=== PATIENT | female | born 1945 | race Caucasian/White ===

== ENCOUNTER 2023-11-22 14:00 | Outpatient (RCR) | payer MEDICARE, OTHER, SELFPAY ==
[2023-11-01 14:02] VITALS: BP 135/75; PULSE 67; RESP 18; TEMP 36.7; BMI 24.3
--- NOTE | 2023-11-01 22:13 | HP.PCM_ITS ---
History of Present Illness Date of Service: 11/01/23 Chief Complaint: Left pretibial ulceration with severe contact dermatitis History of Wound: This is a 77-year-old female who presented with an ulceration of the left pretibial surface which has been present for approximately 1 year. The ulceration has failed to heal. The patient was evaluated at [facility] on October 20, 2023, at which time supriya-ulcer erythema, thought to be cellulitis, prompted treatment with a course of oral antibiotics. Patient has completed a course of oral doxycycline. Most recently, at the advice of her primary care physician, the patient has been using Vaseline liberally on the ulceration and surrounding skin, and covering with Telfa. Patient is a smoker, and has been instructed as to the hazards of smoking, and advised to cease the habit. She currently smokes one-half a pack of cigarettes per day, and has done so for many years. The patient is of relatively normal body habitus, with a BMI of 24.3. She is active, and sleeps on a flat mattress at night. She does relate a history of mild left lower extremity swelling. She denies a history of thrombophlebitis. [facility] Medical History Left leg swelling Contact dermatitis Leg ulcer, left Prediabetes Osteoarthritis of knees, bilateral Psoriasis of scalp Hypertension Tobacco abuse counseling Tobacco abuse Hyperlipidemia Gastroesophageal reflux disease Home Medications ?Medication ?Instructions ?Recorded ?Last Taken ?Type atorvastatin 40 mg tablet 40 mg PO DAILY 11/01/23 Unknown History chlorthalidone 25 mg tablet 25 mg PO DAILY 11/01/23 Unknown History coenzyme Q10 100 mg capsule (Co 100 mg PO DAILY 11/01/23 Unknown History Q-10) folic acid 0.8 mg capsule 800 mcg PO DAILY 11/01/23 Unknown History metoprolol succinate 100 mg 100 mg PO DAILY 11/01/23 Unknown History tablet,extended release 24 hr metoprolol succinate 200 mg 200 mg PO DAILY 11/01/23 Unknown History tablet,extended release 24 hr omeprazole 10 mg capsule,delayed 10 mg PO DAILY 11/01/23 Unknown History release Allergy/AdvReac Type Severity Reaction Status Date / Time amlodipine Allergy Rash Verified 11/01/23 16:02 hydrochlorothiazide Allergy Other Verified 11/01/23 16:02 olmesartan Allergy Other Verified 11/01/23 16:02 simvastatin Allergy Other Verified 11/01/23 16:02 Sulfa (Sulfonamide Allergy Other Verified 11/01/23 16:02 Antibiotics) Surgical History History of tonsillectomy Social History Smoking Status: Current every day smoker Vital Signs Vital Signs Vital Signs: 11/01/23 14:02 Temperature 98.1 F Temperature Source Temporal Pulse Rate 67 Respiratory Rate 18 Blood Pressure 135/75 H Blood Pressure Mean 95 Blood Pressure Source Monitor Blood Pressure Position Semi-Fowlers Blood Pressure Location Left Arm Oxygen Delivery Method Room Air Weight Weight: 142 lb Body Mass Index (BMI) 24.3 Physical Exam Const alert, oriented x3, no apparent distress, average body habitus, no limitations and well nourished General Appearance: cooperative, comfortable, well kempt and well developed Orientation / Consciousness: awake, oriented to person, oriented to place and oriented to time HEENT normocephalic and head/scalp atraumatic Head and Scalp: normal to inspection, normocephalic and atraumatic External Ear: external ears normal Eyes EOMs intact bilaterally General Eye: normal appearance of both eyes Neck full ROM Resp normal respiratory effort, normal air movement, no retractions, no use of accessory muscles and clear to auscultation bilaterally Effort and Inspection: able to speak in complete sentences Cardio regular rate, regular rhythm, S1 normal heart sound and S2 normal heart sound Extremity no calf tenderness General Extremity: Negative for clubbing or cyanosis Skin Wound Narrative: An ulceration is noted on the left pretibial surface. It extends down into the subcutaneous tissue. There is a large amount of bioburden and nonviable tissue, which is yellow in appearance. Dimensions of the ulceration are documented elsewhere. A large portion of the left gaiter area is bright red and erythematous in appearance, though the skin is intact. The erythema is sharply demarcated superiorly and inferiorly in linear fashion to suggest that it is a contact dermatitis rather than cellulitic in nature. There is also a dry eschar on the dorsal aspect of the patient's right second toe. This has been present for only a short number of days, and is without signs of infection or cellulitis. Patient indicates that this was caused by her dog, who stepped on her foot. Neuro oriented x3, CN's II-XII intact bilaterally, moves all extremities and no focal motor deficits Sensorium / Orientation: awake, alert, oriented to person, oriented to place and oriented to time Psych Appearance: grossly normal and appropriate Attitude: calm Activity / Motor Behavior: appropriate eye contact Speech: normal speech Mood & Affect: euthymic mood Thought Process: normal thought process Thought Content: normal thought content Attention / Concentration: attention grossly intact Debridement Note Debridement Note Wound debrided: Left pretibial ulceration Laterality: Left Type of Debridement: Excisional debridement Anesthesia Used: 5% Lidocaine Gel Depth: Down to and including healthy tissue and in the subcutaneous layer Percentage of wound debrided: 100 Instrument Used: 5mm curette Tissue Removed: Bioburden and nonviable tissue Severity: Fat Layer Exposed Amount of bleeding with debridement: Mild Bleeding Controlled with: Compression and gauze Patient tolerated procedure: Patient tolerated procedure well Post-Debridement Measurements and Additional Note: Post-Debridement Measurements/Treatment - Nurse 1 - General Ulcer Assessment Start: 11/01/23 14:02 Freq: Status: Active Protocol: RANJEET Activity Type Activity Date Activity User E-sign Co-sign Detail Recorded Client Recorded Date Recorded By Document 11/01/23 14:02 KW l 11/01/23 14:31 KW 11/01/23 14:02 - Today's Visit Information Type of service Initial Visit Arrival Mode Ambulatory,Cane Accompanied by FRIEND- HIMA Patient Identification Verified (Name & Yes ) Height and Weight Height 5 ft 4 in Weight 142 lb Weight in Pounds 142.0 lbs Body Mass Index (BMI) 24.3 BMI Classification Normal BSA - Phyllis 1.69 Vital Signs Temperature (97.8 F-99.1 F) 98.1 F Temperature Source Temporal Pulse Rate (60-100) 67 Pulse Location Monitor Respiratory Rate (12-18) 18 Respiratory rate source Observation Oxygen Delivery Method Room Air Blood Pressure (90/60-120/80) 135/75 H Blood Pressure Mean 95 Source Monitor Position Semi-Fowlers Blood Pressure Location Left Arm History Since Last Visit- (Skip if this is Patient's initial visit) Left Footwear Regular Shoe Right Footwear Regular Shoe Pain Scale: 0-10 Numeric Is Patient Pain Free? Yes Lower Extremity Assessment/ Foot Assessment/ Toe Nail Assessment Right -Posterior Tibial Doppler Monophasic -Dorsalis Pedis Doppler Monophasic -Hair Growth on Legs No -Hair Growth on Toes No -Temperature of Extremity Cool -Capillary Refill Less than 3 Seconds -Thick Yes -Discolored Yes -Deformed Yes Left -Posterior Tibial Doppler Monophasic -Dorsalis Pedis Doppler Multiphasic -Hair Growth on Legs No -Hair Growth on Toes No -Temperature of Extremity Cool -Capillary Refill Less than 3 Seconds -Thick Yes -Discolored Yes -Deformed Yes Communication Assessment Preferred language Nepali Manager Secondary Required No Able to Read Yes Able to Write Yes Communication Tools None Caregiver Communication Skills No Impairment Impairment Right Hearing Abillity Normal Left Hearing Abillity Normal Visual Assistive Devices None Teaching Assessment Preferences Verbal,Written, Demonstration Barriers to Learning None Readiness To Learn Excellent Willingness to Engage in Self Management High Activies Readiness to Engage in Self Management High Activities Anxiety Level Calm Cooperation Cooperative Perception Coherent Interest in Health Problem Asks Questions Education Importance Acknowledges Need Does Patient Smoke tobacco or other Yes substances Smoking Status Current every day smoker Is Patient Diabetic No Functional Assessment Recent Decline in Ability to Perform Denies Any Declines Culture/Judaism/Production Control Analyst Cultural/Judaism Needs that may affect No Treatment Plan Would you allow our hospital mirror department supervisor to No meet you for the purpose of spiritual/ emotional support? Production Control Analyst to contact place of gnosticism No WC - Nurse 1 - General Ulcer Measurement Start: 11/01/23 14:02 Freq: Status: Active Protocol: Activity Type Activity Date Activity User E-sign Co-sign Detail Recorded Client Recorded Date Recorded By Document 11/01/23 14:02 KW l 11/01/23 14:31 KW 11/01/23 14:02 Wound Center Nurse 1 #2 RT 2ND TOE -Current Size (cm) - Length 2 -Current Size (cm) - Width 0.8 -Current Size (cm) - Depth 0.1 -Total Square Cm 1.6 -Date of Last Picture (Recall this 11/01/23 field) -Exudate Amt None Present -Wound Margin Distinct, Outline Attached -Granulation Amt Small (1-33%) -Granulation Quality Red -Necrosis Amt Large (67-100%) -Necrotic Tissue Type Eschar -Texture (Supriya-wound Skin Appearance) Assessed -Moisture (Supriya-wound Skin Appearance) Assessed -Color (Supriya-wound Skin Appearance) Assessed, Erythema -Temperature (Supriya-wound Skin No Abnormality Appearance) (Pt Warm) -Tenderness on Palpation (Supriya-wound No Skin Appearance) -Ulcer Cleansing Soap and Water -Foul Odor after Cleansing No -Anesthetic Used 5% Lidocaine Gel #1 LLE CLUSTER -Current Size (cm) - Length 6 -Current Size (cm) - Width 9.5 -Current Size (cm) - Depth 0.3 -Total Square Cm 57.0 -Date of Last Picture (Recall this 11/01/23 field) -Exudate Amt Medium -Exudate Type Serosanguineous -Wound Margin Distinct, Outline Attached -Granulation Amt Medium (34-66%) -Granulation Quality Red -Necrosis Amt Large (67-100%) -Necrotic Tissue Type Adherent Slough -Texture (Supriya-wound Skin Appearance) Assessed -Moisture (Supriya-wound Skin Appearance) Assessed, Maceration -Color (Supriya-wound Skin Appearance) Erythema -Temperature (Supriya-wound Skin No Abnormality Appearance) (Pt Warm) -Tenderness on Palpation (Supriya-wound No Skin Appearance) -Ulcer Cleansing Soap and Water -Foul Odor after Cleansing No -Anesthetic Used 4% Lidocaine Solution Right Calf (cm) 32 Right Ankle (cm) 21 Left Calf (cm) 35 Left Ankle (cm) 21 WC - Nurse 2 - General Ulcer CM Notes Start: 11/01/23 14:02 Freq: Status: Active Protocol: Activity Type Activity Date Activity User E-sign Co-sign Detail Recorded Client Recorded Date Recorded By Document 11/01/23 14:53 JF 0000 11/01/23 14:58 JF 11/01/23 14:53 Wound Center Nurse 2 #2 RT 2ND TOE -Correct Patient No -Correct Side, Site, Position No -Correct Procedure No -Procedure Performed No -Wound/Ulcer Outcome Not Healed #1 LLE CLUSTER -Time 14:53 -Correct Patient Yes -Correct Side, Site, Position Yes -Correct Procedure Yes -Procedure Performed Yes -Type of Procedure Debridement -Clinical Debridement Subcutaneous -Tissue Removed Subcutaneous -Post Debridement (cm) - Length 5.7 -Post Debridement (cm) - Width 4.7 -Post Debridement (cm) - Depth 0.2 -Total Square (Post) (cm) 26.79 -Area of Debridement (cm) - Length 5.7 -Area of Debridement (cm) - Width 4.7 -Total Square (Area) (cm) 26.79 -Tunneling No -Undermining/Tunneling No -Circular Undermining No -Wound/Ulcer Outcome Not Healed -Ulcer Cleansing Rinsed/ Irrigated with Saline -Foul Odor after Cleansing No -Bioengineered Tissue No -Bleeding Controlled with Pressure -Treatment Response Procedure Tolerated Well -Offloading No -Debridement - Subq, 1st 20sq cm Yes -Debridement, SubQ, ea addt'l 20sq cm 1 or part thereof Pain Scale: 0-10 Numeric Is Patient Pain Free? Yes - Nurse 3 - General Ulcer D/C NN Start: 11/01/23 14:02 Freq: Status: Active Protocol: Activity Type Activity Date Activity User E-sign Co-sign Detail Recorded Client Recorded Date Recorded By Document 11/01/23 15:19 KW l 11/01/23 15:26 KW 11/01/23 15:19 Wound Care Center Nurse 3 #2 RT 2ND TOE -Ulcer Cleansing Rinsed/ Irrigated with Saline #1 LLE CLUSTER -Other Dressing HYDROGEL UNTIL SHE GETS SANTYL AND HYDROCORTISONE CREAM 1% -Primary Dressing Covered/Secured with Dry Gauze & Roll Gauze, Secured with Tape Left -Tubular Bandage Single Layer -Size of Tubigrip Used Size D -Size D ($) 1 Pain Scale: 0-10 Numeric Is Patient Pain Free? Yes - Visit Discharge Discharge Condition Stable Ambulatory Status Ambulatory,Cane Transportation Private Auto Medication Reconcilliation completed & No provided to patient/care provider Clinical Summary of Care Provided Yes Charges/Coding Multi Select Codes Visit Charges Office Visit/Consults: 46280 OV L4 New 45 min Integumentary Integumentary CPT Codes: 66280 Edith subq tissue 20 sq cm/< (Also 67366) Assessment/Plan Assessment/Plan (1) Leg ulcer, left: CODE(S): L97.929 - Non-pressure chronic ulcer of unspecified part of left lower leg with unspecified severity QUALIFIERS: Non-pressure ulcer stage: with fat layer exposed Qualified Code(s): L97.922 - Non-pressure chronic ulcer of unspecified part of left lower leg with fat layer exposed (2) Contact dermatitis: CODE(S): L25.9 - Unspecified contact dermatitis, unspecified cause QUALIFIERS: Contact dermatitis type: irritant Contact dermatitis trigger: other chemical product Qualified Code(s): L24.5 - Irritant contact dermatitis due to other chemical products (3) Left leg swelling: CODE(S): M79.89 - Other specified soft tissue disorders (4) Gastroesophageal reflux disease: CODE(S): K21.9 - Gastro-esophageal reflux disease without esophagitis (5) Hyperlipidemia: CODE(S): E78.5 - Hyperlipidemia, unspecified (6) Tobacco abuse: CODE(S): Z72.0 - Tobacco use (7) Tobacco abuse counseling: CODE(S): Z71.6 - Tobacco abuse counseling (8) Hypertension: CODE(S): I10 - Essential (primary) hypertension (9) Psoriasis of scalp: CODE(S): L40.9 - Psoriasis, unspecified (10) Osteoarthritis of knees, bilateral: CODE(S): M17.0 - Bilateral primary osteoarthritis of knee (11) Prediabetes: CODE(S): R73.03 - Prediabetes (12) History of tonsillectomy: CODE(S): Z90.89 - Acquired absence of other organs PLAN: Plan This is a 77-year-old female who presented with an ulceration of the left pretibial surface of approximately 1 years duration. It has failed to heal appropriately. She has been previously treated for suspected cellulitis with a course of oral doxycycline. Upon presentation, the ulceration demonstrates a large amount of bioburden and nonviable tissue, which was somewhat resistant to removal by debridement. As result, we are to implement the use of collagenase Santyl topically to the ulceration. The patient has been instructed in the appropriate means of application. She has been provided a prescription for collagenase Santyl, as well as a coupon to mitigate the high cost of the medication. The patient has been advised to discontinue her smoking habit. Optimization of glycemic control and nutrition has been recommended. There is intense erythema being a good portion of the left gaiter area, which is very well-demarcated both superiorly and inferiorly, arousing a suspicion of contact dermatitis, as the patient has been using Telfa and Vaseline topically. Patient has been instructed to discontinue the use of Telfa and Vaseline. She has been advised to obtain hydrocortisone 1% ointment, and to apply topically to the reddened areas once or twice daily. She has been advised to elevate her left lower extremity is much as possible, even during daytime hours. Elevation is to be to heart level, or higher. A Tubigrip of 20 to 30 mmHg has been provided to the patient for daily use. With regard to the dry eschar on the dorsum of the right second toe, the patient has been advised to maintain a dry gauze dressing, and to avoid friction or pressure from ill-fitted footwear. We are to monitor this site on a serial basis. The patient is to return in 1 week for reevaluation. Total time: 48 minutes
--- NOTE | 2023-11-03 10:07 | WC ---
PHOTO 11/01/2023 2ND RIGHT TOE
--- NOTE | 2023-11-03 10:09 | WC ---
PHOTO 11/01/2023 ERIKA
--- NOTE | 2023-11-03 10:09 | WC ---
PHOTO 11/01/2023 ERIKA
[2023-11-08 14:36] VITALS: BP 148/51; PULSE 54; RESP 18; TEMP 36; BMI 24.3
--- NOTE | 2023-11-08 16:37 | HP.PCM_ITS ---
History of Present Illness Date of Service: 11/08/23 Chief Complaint: Left pretibial ulceration with severe contact dermatitis History of Wound: This is a 77-year-old female who presented with an ulceration of the left pretibial surface which had been present for approximately 1 year. The ulceration had failed to heal. The patient was evaluated at [facility] on October 20, 2023, at which time supriya-ulcer erythema, thought to be cellulitis, prompted treatment with a course of oral antibiotics. The patient has completed a course of oral doxycycline. Most recently, at the advice of her primary care physician, the patient has been using Vaseline liberally on the ulceration and surrounding skin, and covering with Telfa. The patient is a smoker, and has been instructed as to the hazards of smoking, and advised to cease the habit. She currently smokes one-half a pack of cigarettes per day, and has done so for many years. The patient is of relatively normal body habitus, with a BMI of 24.3. She is active, and sleeps on a flat mattress at night. She does relate a history of mild left lower extremity swelling. She denies a history of thrombophlebitis. [facility] Medical History Left leg swelling Contact dermatitis Leg ulcer, left Prediabetes Osteoarthritis of knees, bilateral Psoriasis of scalp Hypertension Tobacco abuse counseling Tobacco abuse Hyperlipidemia Gastroesophageal reflux disease Home Medications ?Medication ?Instructions ?Recorded ?Last Taken ?Type atorvastatin 40 mg tablet 40 mg PO DAILY 11/01/23 Unknown History chlorthalidone 25 mg tablet 25 mg PO DAILY 11/01/23 Unknown History coenzyme Q10 100 mg capsule (Co 100 mg PO DAILY 11/01/23 Unknown History Q-10) folic acid 0.8 mg capsule 800 mcg PO DAILY 11/01/23 Unknown History metoprolol succinate 100 mg 100 mg PO DAILY 11/01/23 Unknown History tablet,extended release 24 hr metoprolol succinate 200 mg 200 mg PO DAILY 11/01/23 Unknown History tablet,extended release 24 hr omeprazole 10 mg capsule,delayed 10 mg PO DAILY 11/01/23 Unknown History release Allergy/AdvReac Type Severity Reaction Status Date / Time amlodipine Allergy Rash Verified 11/01/23 16:02 hydrochlorothiazide Allergy Other Verified 11/01/23 16:02 olmesartan Allergy Other Verified 11/01/23 16:02 simvastatin Allergy Other Verified 11/01/23 16:02 Sulfa (Sulfonamide Allergy Other Verified 11/01/23 16:02 Antibiotics) Surgical History History of tonsillectomy Social History Smoking Status: Current every day smoker Vital Signs Vital Signs Vital Signs: 11/08/23 14:36 Temperature 96.8 F L Temperature Source Temporal Pulse Rate 54 L Respiratory Rate 18 Blood Pressure 148/51 H Blood Pressure Mean 83 Blood Pressure Source Monitor Blood Pressure Position Sitting Blood Pressure Location Right Arm Oxygen Delivery Method Room Air Weight Weight: 142 lb Body Mass Index (BMI) 24.3 Physical Exam Const alert, oriented x3, no apparent distress, average body habitus, no limitations and well nourished General Appearance: cooperative, comfortable, well kempt and well developed Orientation / Consciousness: awake, oriented to person, oriented to place and oriented to time HEENT normocephalic and head/scalp atraumatic Head and Scalp: normal to inspection, normocephalic and atraumatic External Ear: external ears normal Eyes EOMs intact bilaterally General Eye: normal appearance of both eyes Neck full ROM Resp normal respiratory effort, normal air movement, no retractions, no use of accessory muscles and clear to auscultation bilaterally Effort and Inspection: able to speak in complete sentences Cardio regular rate, regular rhythm, S1 normal heart sound and S2 normal heart sound Extremity no calf tenderness General Extremity: Negative for clubbing or cyanosis Skin Wound Narrative: An ulceration is noted on the left pretibial surface. It extends down into the subcutaneous tissue. There is a moderate amount of bioburden and nonviable tissue, which is yellow in appearance. Dimensions of the ulceration are documented elsewhere. A large portion of the left gaiter area remains bright red and erythematous in appearance, though markedly improved. The erythema is sharply demarcated superiorly and inferiorly in linear fashion to suggest that it is a contact dermatitis rather than cellulitic in nature. There is also a dry eschar on the dorsal aspect of the patient's right second toe. This is without signs of infection or cellulitis. The patient indicates that this was caused by either her dog, who stepped on her foot, or an ill-fitting shoe. Neuro oriented x3, CN's II-XII intact bilaterally, moves all extremities and no focal motor deficits Sensorium / Orientation: awake, alert, oriented to person, oriented to place and oriented to time Psych Appearance: grossly normal and appropriate Attitude: calm Activity / Motor Behavior: appropriate eye contact Speech: normal speech Mood & Affect: euthymic mood Thought Process: normal thought process Thought Content: normal thought content Attention / Concentration: attention grossly intact Debridement Note Debridement Note Wound debrided: Left pretibial ulceration Laterality: Left Type of Debridement: Excisional debridement Anesthesia Used: 5% Lidocaine Gel and Cetacaine Depth: Down to and including healthy tissue and in the subcutaneous layer Percentage of wound debrided: 100 Instrument Used: 5mm curette Tissue Removed: Bioburden and nonviable tissue Severity: Fat Layer Exposed Amount of bleeding with debridement: Mild Bleeding Controlled with: Compression and gauze Patient tolerated procedure: Patient tolerated procedure well Post-Debridement Measurements and Additional Note: Post-Debridement Measurements/Treatment - Nurse 1 - General Ulcer Assessment Start: 11/01/23 14:02 Freq: Status: Active Protocol: RANEJET Activity Type Activity Date Activity User E-sign Co-sign Detail Recorded Client Recorded Date Recorded By Document 11/01/23 14:02 KW l 11/01/23 14:31 KW Document 11/08/23 14:36 DS 1 11/08/23 14:48 DS 11/01/23 11/08/23 14:02 14:36 - Today's Visit Information Type of service Initial Visit Follow-up Visit (Physician/NURSING ATTENDANT ) Arrival Mode Ambulatory,Cane Ambulatory,Cane Accompanied by FRIEND- HIMA Patient Identification Verified (Name & Yes ) Patient Requires Transmission-Based No Precautions Height and Weight Height 5 ft 4 in Weight 142 lb Weight in Pounds 142.0 lbs Body Mass Index (BMI) 24.3 24.3 BMI Classification Normal Normal BSA - Phyllis 1.69 Vital Signs Temperature (97.8 F-99.1 F) 98.1 F 96.8 F L Temperature Source Temporal Temporal Pulse Rate (60-100) 67 54 L Pulse Location Monitor Monitor Respiratory Rate (12-18) 18 18 Respiratory rate source Observation Observation Oxygen Delivery Method Room Air Room Air Blood Pressure (90/60-120/80) 135/75 H 148/51 H Blood Pressure Mean 95 83 Source Monitor Monitor Position Semi-Fowlers Sitting Blood Pressure Location Left Arm Right Arm History Since Last Visit- (Skip if this is Patient's initial visit) Have you changed medications since your No last visit? Any new allergies or adverse reactions No Had a fall/change in ADL's that may No increase risk of falls Signs or symptoms of abuse and/or No neglect since last visit Have you been in the hospital since your No last visit? Has dressing in place as prescribed Yes Has compression in place as prescribed N/A Has offloadiing in place as prescribed N/A Left Footwear Regular Shoe Regular Shoe Right Footwear Regular Shoe Regular Shoe Pain Scale: 0-10 Numeric Is Patient Pain Free? Yes No left lower leg -Description Aching -Intensity 2 -Duration (hours) Acute -Pain Behavior No Change in Behavior -Alleviating Factors/Interventions Will continue to monitor, Emotional Support,None Lower Extremity Assessment/ Foot Assessment/ Toe Nail Assessment Right -Posterior Tibial Doppler Monophasic -Dorsalis Pedis Doppler Monophasic -Hair Growth on Legs No -Hair Growth on Toes No -Temperature of Extremity Cool -Capillary Refill Less than 3 Seconds -Thick Yes -Discolored Yes -Deformed Yes Left -Posterior Tibial Doppler Monophasic -Dorsalis Pedis Doppler Multiphasic -Hair Growth on Legs No -Hair Growth on Toes No -Temperature of Extremity Cool -Capillary Refill Less than 3 Seconds -Thick Yes -Discolored Yes -Deformed Yes Communication Assessment Preferred language [place] [employer] Employment Coordinator Required No Able to Read Yes Able to Write Yes Communication Tools None Caregiver Communication Skills No Impairment Impairment Right Hearing Abillity Normal Left Hearing Abillity Normal Visual Assistive Devices None Teaching Assessment Preferences Verbal,Written, Demonstration Barriers to Learning None Readiness To Learn Excellent Willingness to Engage in Self Management High Activies Readiness to Engage in Self Management High Activities Anxiety Level Calm Cooperation Cooperative Perception Coherent Interest in Health Problem Asks Questions Education Importance Acknowledges Need Does Patient Smoke tobacco or other Yes substances Smoking Status Current every day smoker Is Patient Diabetic No Functional Assessment Recent Decline in Ability to Perform Denies Any Declines Culture/Christianity/[employer] Cultural/Christianity Needs that may affect No Treatment Plan Would you allow our hospital hotel clerk to No meet you for the purpose of spiritual/ emotional support? [employer] to contact place of episcopalian No WC - Nurse 1 - General Ulcer Measurement Start: 11/01/23 14:02 Freq: Status: Active Protocol: Activity Type Activity Date Activity User E-sign Co-sign Detail Recorded Client Recorded Date Recorded By Document 11/01/23 14:02 KW l 11/01/23 14:31 KW Document 11/08/23 14:36 DS 1 11/08/23 14:48 DS 11/01/23 11/08/23 14:02 14:36 Wound Center Nurse 1 #2 RT 2ND TOE -Current Size (cm) - Length 2 0.1 -Current Size (cm) - Width 0.8 0.1 -Current Size (cm) - Depth 0.1 0.1 -Total Square Cm 1.6 0.01 -Date of Last Picture (Recall this 11/01/23 field) -Photo Taken No -Exudate Amt None Present -Wound Margin Distinct, Outline Attached -Granulation Amt Small (1-33%) -Granulation Quality Red -Necrosis Amt Large (67-100%) Large (67-100%) -Necrotic Tissue Type Eschar Adherent Slough -Texture (Supriya-wound Skin Appearance) Assessed Assessed -Moisture (Supriya-wound Skin Appearance) Assessed Assessed -Color (Supriya-wound Skin Appearance) Assessed, Assessed Erythema -Temperature (Supriya-wound Skin No Abnormality Appearance) (Pt Warm) -Tenderness on Palpation (Supriya-wound No Skin Appearance) -Ulcer Cleansing Soap and Water Soap and Water -Foul Odor after Cleansing No -Anesthetic Used 5% Lidocaine 5% Lidocaine Gel Gel #1 LLE CLUSTER -Combined with other wound No -Current Size (cm) - Length 6 9.8 -Current Size (cm) - Width 9.5 9.4 -Current Size (cm) - Depth 0.3 0.1 -Total Square Cm 57.0 92.12 -Date of Last Picture (Recall this 11/01/23 field) -Photo Taken No -Tunneling No -Undermining/Tunneling No -Circular Undermining No -Exudate Amt Medium -Exudate Type Serosanguineous -Wound Margin Distinct, Outline Attached -Granulation Amt Medium (34-66%) -Granulation Quality Red -Necrosis Amt Large (67-100%) Large (67-100%) -Necrotic Tissue Type Adherent Slough Adherent Slough -Texture (Supriya-wound Skin Appearance) Assessed Assessed -Moisture (Supriya-wound Skin Appearance) Assessed, Assessed Maceration -Color (Supriya-wound Skin Appearance) Erythema Assessed -Temperature (Supriya-wound Skin No Abnormality No Abnormality Appearance) (Pt Warm) (Pt Warm) -Tenderness on Palpation (Supriya-wound No Yes Skin Appearance) -Ulcer Cleansing Soap and Water Soap and Water -Foul Odor after Cleansing No -Anesthetic Used 4% Lidocaine 5% Lidocaine Solution Gel Right Calf (cm) 32 Right Ankle (cm) 21 Left Calf (cm) 35 35.2 Left Ankle (cm) 21 20.2 WC - Nurse 2 - General Ulcer CM Notes Start: 11/01/23 14:02 Freq: Status: Active Protocol: Activity Type Activity Date Activity User E-sign Co-sign Detail Recorded Client Recorded Date Recorded By Document 11/01/23 14:53 JF 0000 11/01/23 14:58 JF Document 11/08/23 15:03 DS 1 11/08/23 15:09 DS Edit Result 11/08/23 15:03 DS (1) [id number] 11/08/23 15:26 DS (1) #2 RT 2ND TOE - Correct Patient => No - Correct Side, Site, Position => No - Correct Procedure => No - Procedure Performed => No - Tunneling => No - Undermining/Tunneling => No - Circular Undermining => No - Wound/Ulcer Outcome => Not Healed 11/01/23 11/08/23 14:53 15:03 Wound Center Nurse 2 #2 RT 2ND TOE -Correct Patient No No -Correct Side, Site, Position No No -Correct Procedure No No -Procedure Performed No No -Tunneling No -Undermining/Tunneling No -Circular Undermining No -Wound/Ulcer Outcome Not Healed Not Healed #1 LLE CLUSTER -Time 14:53 15:03 -Correct Patient Yes Yes -Correct Side, Site, Position Yes Yes -Correct Procedure Yes Yes -Procedure Performed Yes Yes -Type of Procedure Debridement Debridement -Clinical Debridement Subcutaneous Subcutaneous -Tissue Removed Subcutaneous Subcutaneous -Post Debridement (cm) - Length 5.7 7.0 -Post Debridement (cm) - Width 4.7 9.8 -Post Debridement (cm) - Depth 0.2 0.2 -Total Square (Post) (cm) 26.79 68.60 -Area of Debridement (cm) - Length 5.7 7.0 -Area of Debridement (cm) - Width 4.7 9.8 -Total Square (Area) (cm) 26.79 68.60 -Tunneling No No -Undermining/Tunneling No No -Circular Undermining No No -Wound/Ulcer Outcome Not Healed Not Healed -Ulcer Cleansing Rinsed/ Irrigated with Saline -Foul Odor after Cleansing No -Bioengineered Tissue No -Bleeding Controlled with Pressure Pressure -Treatment Response Procedure Procedure Tolerated Well Tolerated Well -Offloading No -Debridement - Subq, 1st 20sq cm Yes Yes -Debridement, SubQ, ea addt'l 20sq cm 1 3 or part thereof Pain Scale: 0-10 Numeric Is Patient Pain Free? Yes No left lower leg -Description Sharp -Intensity 5 -Duration (hours) Acute -Pain Behavior Guarding -Pain Aggravating Factors Debridement -Alleviating Factors/Interventions Will continue to monitor, Emotional Support WC - Nurse 3 - General Ulcer D/C NN Start: 11/01/23 14:02 Freq: Status: Active Protocol: Activity Type Activity Date Activity User E-sign Co-sign Detail Recorded Client Recorded Date Recorded By Document 11/01/23 15:19 KW l 11/01/23 15:26 KW Document 11/08/23 15:52 RB wound 11/08/23 15:54 RB 11/01/23 11/08/23 15:19 15:52 Wound Care Center Nurse 3 #2 RT 2ND TOE -Ulcer Cleansing Rinsed/ Irrigated with Saline -Other Dressing hydrogel -Primary Dressing Covered/Secured with Dry Gauze, Secured with Tape #1 LLE CLUSTER -Other Dressing HYDROGEL UNTIL hydrogel / ABD/ SHE GETS SANTYL gauze roll AND HYDROCORTISONE CREAM 1% -Primary Dressing Covered/Secured with Dry Gauze & Dry Gauze & Roll Gauze, Roll Gauze, Secured with Secured with Tape Tape Left -Tubular Bandage Single Layer -Size of Tubigrip Used Size D -Size D ($) 1 Treatment Response Procedure Tolerated Well Pain Scale: 0-10 Numeric Is Patient Pain Free? Yes No left lower leg -Description Aching -Intensity 5 -Duration (hours) Acute -Pain Behavior Withdrawal from Touch -Pain Aggravating Factors Exercise/ Activity -Alleviating Factors/Interventions Medication -Effectiveness of Alleviating Factor/ Minimally Intervention effective WC - Visit Discharge Discharge Condition Stable Stable Ambulatory Status Ambulatory,Cane Ambulatory,Cane Transportation Private Auto Private Auto Medication Reconcilliation completed & No No provided to patient/care provider Clinical Summary of Care Provided Yes Yes Notes: Pt Refused tubigrip today Charges/Coding Multi Select Codes Integumentary Integumentary CPT Codes: 67056 Edith subq tissue 20 sq cm/< (93451 X 3) Assessment/Plan Assessment/Plan (1) Leg ulcer, left: CODE(S): L97.929 - Non-pressure chronic ulcer of unspecified part of left lower leg with unspecified severity QUALIFIERS: Non-pressure ulcer stage: with fat layer exposed Qualified Code(s): L97.922 - Non-pressure chronic ulcer of unspecified part of left lower leg with fat layer exposed (2) Contact dermatitis: CODE(S): L25.9 - Unspecified contact dermatitis, unspecified cause QUALIFIERS: Contact dermatitis type: irritant Contact dermatitis trigger: other chemical product Qualified Code(s): L24.5 - Irritant contact dermatitis due to other chemical products (3) Left leg swelling: CODE(S): M79.89 - Other specified soft tissue disorders (4) Gastroesophageal reflux disease: CODE(S): K21.9 - Gastro-esophageal reflux disease without esophagitis (5) Hyperlipidemia: CODE(S): E78.5 - Hyperlipidemia, unspecified (6) Tobacco abuse: CODE(S): Z72.0 - Tobacco use (7) Tobacco abuse counseling: CODE(S): Z71.6 - Tobacco abuse counseling (8) Hypertension: CODE(S): I10 - Essential (primary) hypertension (9) Psoriasis of scalp: CODE(S): L40.9 - Psoriasis, unspecified (10) Osteoarthritis of knees, bilateral: CODE(S): M17.0 - Bilateral primary osteoarthritis of knee (11) Prediabetes: CODE(S): R73.03 - Prediabetes (12) History of tonsillectomy: CODE(S): Z90.89 - Acquired absence of other organs PLAN: Plan This is a 77-year-old female who presented with an ulceration of the left pretibial surface of approximately 1 years duration. It has failed to heal appropriately. She has been previously treated for suspected cellulitis with a course of oral doxycycline. The ulceration demonstrates a large amount of bioburden and nonviable tissue, which is somewhat resistant to removal by debridement. As result, we are to continue the use of collagenase Santyl topically to the ulceration. The patient has been instructed in the appropriate means of application. She has been provided a prescription for collagenase Santyl, which has been obtained. The patient has been advised to discontinue her smoking habit. Optimization of glycemic control and nutrition has been recommended. There is diminishing erythema involving a good portion of the left gaiter area, which is very well-demarcated both superiorly and inferiorly, arousing a suspicion of contact dermatitis, as the patient had been using Telfa and Vaseline topically. The patient has discontinued the use of Telfa and Vaseline. She has been advised to continue hydrocortisone 1% ointment topically to the reddened areas once or twice daily. She has been advised to elevate her left lower extremity is much as possible, even during daytime hours. Elevation is to be to heart level, or higher. A Tubigrip of 20 to 30 mmHg has been provided to the patient for daily use. With regard to the dry eschar on the dorsum of the right second toe, the patient has been advised to maintain a dry gauze dressing, and to avoid friction or pressure from ill-fitted footwear. We are to monitor this site on a serial basis. The patient is to return in 1 week for reevaluation. Total time: 24 minutes
[2023-11-15 14:16] VITALS: BP 133/67; PULSE 61; RESP 18; TEMP 36.2; BMI 24.3
[2023-11-15 14:22] VITALS: BP 133/61; PULSE 67; RESP 18; TEMP 36.6; BMI 24.3
--- NOTE | 2023-11-15 16:47 | PCM.WC.HP ---
History of Present Illness Date of Service: 11/15/23 Chief Complaint: Clustered left pretibial ulceration with severe contact dermatitis History of Wound: This is an 78-year-old female who presented with an ulceration of the left pretibial surface which had been present for approximately 1 year. The ulceration had failed to heal. The patient was evaluated at [facility] on October 20, 2023, at which time supriya-ulcer erythema, thought to be cellulitis, prompted treatment with a course of oral antibiotics. The patient had completed a course of oral doxycycline. Most recently, at the advice of her primary care physician, the patient had been using Vaseline liberally on the ulceration and surrounding skin, and covering with Telfa. The patient is a smoker, and has been instructed as to the hazards of smoking, and advised to discontinue the habit. She smokes one-half a pack of cigarettes per day, and has done so for many years. The patient is of relatively normal body habitus, with a BMI of 24.3. She is active, and sleeps on a flat mattress at night. She does relate a history of mild left lower extremity swelling. She denied a history of thrombophlebitis. [facility] Medical History (Updated 11/15/23 @ 16:[address] Derrek Lorenzana MD) Chronic venous insufficiency Left leg swelling Contact dermatitis Leg ulcer, left Prediabetes Osteoarthritis of knees, bilateral Psoriasis of scalp Hypertension Tobacco abuse counseling Tobacco abuse Hyperlipidemia Gastroesophageal reflux disease Home Medications ?Medication ?Instructions ?Recorded ?Last Taken ?Type atorvastatin 40 mg tablet 40 mg PO DAILY 11/01/23 Unknown History chlorthalidone 25 mg tablet 25 mg PO DAILY 11/01/23 Unknown History coenzyme Q10 100 mg capsule (Co 100 mg PO DAILY 11/01/23 Unknown History Q-10) folic acid 0.8 mg capsule 800 mcg PO DAILY 11/01/23 Unknown History metoprolol succinate 100 mg 100 mg PO DAILY 11/01/23 Unknown History tablet,extended release 24 hr metoprolol succinate 200 mg 200 mg PO DAILY 11/01/23 Unknown History tablet,extended release 24 hr omeprazole 10 mg capsule,delayed 10 mg PO DAILY 11/01/23 Unknown History release Allergy/AdvReac Type Severity Reaction Status Date / Time amlodipine Allergy Rash Verified 11/01/23 16:02 hydrochlorothiazide Allergy Other Verified 11/01/23 16:02 olmesartan Allergy Other Verified 11/01/23 16:02 simvastatin Allergy Other Verified 11/01/23 16:02 Sulfa (Sulfonamide Allergy Other Verified 11/01/23 16:02 Antibiotics) Surgical History History of tonsillectomy Social History Smoking Status: Current every day smoker Vital Signs Vital Signs Vital Signs: 11/15/23 14:16 11/15/23 14:22 Temperature 97.1 F L 97.8 F Temperature Source Temporal Temporal Pulse Rate 61 67 Respiratory Rate 18 18 Blood Pressure 133/67 H 133/61 H Blood Pressure Mean 89 85 Blood Pressure Source Monitor Monitor Blood Pressure Position Sitting Semi-Fowlers Blood Pressure Location Right Arm Left Arm Oxygen Delivery Method Room Air Weight Weight: 142 lb Body Mass Index (BMI) 24.3 Physical Exam Const alert, oriented x3, no apparent distress, average body habitus, no limitations and well nourished General Appearance: cooperative, comfortable, well kempt and well developed Orientation / Consciousness: awake, oriented to person, oriented to place and oriented to time HEENT normocephalic and head/scalp atraumatic Head and Scalp: normal to inspection, normocephalic and atraumatic External Ear: external ears normal Eyes EOMs intact bilaterally General Eye: normal appearance of both eyes Neck full ROM Resp normal respiratory effort, normal air movement, no retractions, no use of accessory muscles and clear to auscultation bilaterally Effort and Inspection: able to speak in complete sentences Cardio regular rate, regular rhythm, S1 normal heart sound and S2 normal heart sound Extremity no calf tenderness General Extremity: Negative for clubbing or cyanosis Skin Wound Narrative: A clustered ulceration is noted on the left pretibial surface and lateral calf. It extends down into the subcutaneous tissue. There is a moderate amount of bioburden and nonviable tissue, which is yellow in appearance. Dimensions of the ulceration are documented elsewhere. A large portion of the left gaiter area remains bright red and erythematous in appearance, though markedly improved. The erythema is sharply demarcated superiorly and inferiorly in linear fashion to suggest that it is a contact dermatitis rather than cellulitic in nature. However, a swab culture has been obtained for aerobic and anaerobic bacterial growth. Results will be awaited. No significant swelling is noted in the patient's left lower extremity. There is also a dry eschar on the dorsal aspect of the patient's right second toe. This is without signs of infection or cellulitis. The patient indicates that this was caused by either her dog, who stepped on her foot, or an ill-fitting shoe. Neuro oriented x3, CN's II-XII intact bilaterally, moves all extremities and no focal motor deficits Sensorium / Orientation: awake, alert, oriented to person, oriented to place and oriented to time Psych Appearance: grossly normal and appropriate Attitude: calm Activity / Motor Behavior: appropriate eye contact Speech: normal speech Mood & Affect: euthymic mood Thought Process: normal thought process Thought Content: normal thought content Attention / Concentration: attention grossly intact Debridement Note Debridement Note Wound debrided: Left pretibial and lateral calf ulceration Laterality: Left Type of Debridement: Excisional debridement Anesthesia Used: 5% Lidocaine Gel and Cetacaine Depth: Down to and including healthy tissue and in the subcutaneous layer Percentage of wound debrided: 100 Instrument Used: 5mm curette Tissue Removed: Bioburden and nonviable tissue Severity: Fat Layer Exposed Amount of bleeding with debridement: Mild Bleeding Controlled with: Compression and gauze Patient tolerated procedure: Patient tolerated procedure well Post-Debridement Measurements and Additional Note: Post-Debridement Measurements/Treatment - Nurse 1 - General Ulcer Assessment Start: 11/01/23 14:02 Freq: Status: Active Protocol: .ANNABEL Activity Type Activity Date Activity User E-sign Co-sign Detail Recorded Client Recorded Date Recorded By Document 11/01/23 14:02 KW l 11/01/23 14:31 KW Document 11/08/23 14:36 DS 1 11/08/23 14:48 DS Document 11/15/23 14:16 DS 1 11/15/23 14:17 DS Document 11/15/23 14:22 DS 1 11/15/23 14:29 DS 11/01/23 11/08/23 11/15/23 14:02 14:36 14:16 - Today's Visit Information Type of service Initial Visit Follow-up Visit Follow-up Visit (Physician/HARDWARE ASSEMBLER (Physician/HARDWARE ASSEMBLER ) ) Arrival Mode Ambulatory,Cane Ambulatory,Cane Ambulatory,Cane Transfer Assistance Accompanied by FRIEND- HIMA Patient Identification Verified (Name & Yes ) Patient Requires Transmission-Based No Precautions Safety Precautions Fall Prevention Height and Weight Height 5 ft 4 in Weight 142 lb Weight in Pounds 142.0 lbs Body Mass Index (BMI) 24.3 24.3 24.3 BMI Classification Normal Normal Normal BSA - Phyllis 1.69 Vital Signs Temperature (97.8 F-99.1 F) 98.1 F 96.8 F L 97.1 F L Temperature Source Temporal Temporal Temporal Pulse Rate (60-100) 67 54 L 61 Pulse Location Monitor Monitor Monitor Respiratory Rate (12-18) 18 18 18 Respiratory rate source Observation Observation Observation Oxygen Delivery Method Room Air Room Air Room Air Blood Pressure (90/60-120/80) 135/75 H 148/51 H 133/67 H Blood Pressure Mean 95 83 89 Source Monitor Monitor Monitor Position Semi-Fowlers Sitting Sitting Blood Pressure Location Left Arm Right Arm Right Arm History Since Last Visit- (Skip if this is Patient's initial visit) Have you changed medications since your No No last visit? Any new allergies or adverse reactions No No Had a fall/change in ADL's that may No No increase risk of falls Signs or symptoms of abuse and/or No No neglect since last visit Have you been in the hospital since your No No last visit? Has dressing in place as prescribed Yes Yes Has compression in place as prescribed N/A N/A Has offloadiing in place as prescribed N/A No Experienced any changes in pain level or No management Left Footwear Regular Shoe Regular Shoe Regular Shoe Right Footwear Regular Shoe Regular Shoe Regular Shoe Pain Scale: 0-10 Numeric Is Patient Pain Free? Yes No No left lower leg -Description Aching Aching -Intensity 2 8 -Duration (hours) Acute -Pain Behavior No Change in Irritability Behavior -Pain Aggravating Factors -Alleviating Factors/Interventions Will continue Will continue to monitor, to monitor, Emotional Emotional Support,None Support -Effectiveness of Alleviating Factor/ Intervention Lower Extremity Assessment/ Foot Assessment/ Toe Nail Assessment Right -Posterior Tibial Doppler Monophasic -Dorsalis Pedis Doppler Monophasic -Hair Growth on Legs No -Hair Growth on Toes No -Temperature of Extremity Cool -Capillary Refill Less than 3 Seconds -Thick Yes -Discolored Yes -Deformed Yes Left -Posterior Tibial Doppler Monophasic -Dorsalis Pedis Doppler Multiphasic -Hair Growth on Legs No -Hair Growth on Toes No -Temperature of Extremity Cool -Capillary Refill Less than 3 Seconds -Thick Yes -Discolored Yes -Deformed Yes Communication Assessment Preferred language Georgian Chief Of Planning Required No Able to Read Yes Able to Write Yes Communication Tools None Caregiver Communication Skills No Impairment Impairment Right Hearing Abillity Normal Left Hearing Abillity Normal Visual Assistive Devices None Teaching Assessment Preferences Verbal,Written, Demonstration Barriers to Learning None Readiness To Learn Excellent Willingness to Engage in Self Management High Activies Readiness to Engage in Self Management High Activities Anxiety Level Calm Cooperation Cooperative Perception Coherent Interest in Health Problem Asks Questions Education Importance Acknowledges Need Does Patient Smoke tobacco or other Yes substances Smoking Status Current every day smoker Is Patient Diabetic No Functional Assessment Recent Decline in Ability to Perform Denies Any Declines Culture/Samaritan/Sprinkling System Installer Cultural/Samaritan Needs that may affect No Treatment Plan Would you allow our hospital software support engineer to No meet you for the purpose of spiritual/ emotional support? Sprinkling System Installer to contact place of scientologist No 11/15/23 14:22 WC - Today's Visit Information Type of service Follow-up Visit (Physician/HARDWARE ASSEMBLER ) Arrival Mode Ambulatory Transfer Assistance None Accompanied by Patient Identification Verified (Name & Yes ) Patient Requires Transmission-Based No Precautions Safety Precautions Height and Weight Height Weight Weight in Pounds Body Mass Index (BMI) 24.3 BMI Classification Normal BSA - Phyllis Vital Signs Temperature (97.8 F-99.1 F) 97.8 F Temperature Source Temporal Pulse Rate (60-100) 67 Pulse Location Monitor Respiratory Rate (12-18) 18 Respiratory rate source Observation Oxygen Delivery Method Blood Pressure (90/60-120/80) 133/61 H Blood Pressure Mean 85 Source Monitor Position Semi-Fowlers Blood Pressure Location Left Arm History Since Last Visit- (Skip if this is Patient's initial visit) Have you changed medications since your No last visit? Any new allergies or adverse reactions No Had a fall/change in ADL's that may No increase risk of falls Signs or symptoms of abuse and/or No neglect since last visit Have you been in the hospital since your No last visit? Has dressing in place as prescribed Yes Has compression in place as prescribed No Has offloadiing in place as prescribed No Experienced any changes in pain level or No management Left Footwear Right Footwear Pain Scale: 0-10 Numeric Is Patient Pain Free? No left lower leg -Description Sharp,Burning -Intensity 10 -Duration (hours) Acute -Pain Behavior Guarding, Withdrawal from Touch -Pain Aggravating Factors ADL's -Alleviating Factors/Interventions None -Effectiveness of Alleviating Factor/ Moderately Intervention effective Lower Extremity Assessment/ Foot Assessment/ Toe Nail Assessment Right -Posterior Tibial Doppler -Dorsalis Pedis Doppler -Hair Growth on Legs -Hair Growth on Toes -Temperature of Extremity -Capillary Refill -Thick -Discolored -Deformed Left -Posterior Tibial Doppler -Dorsalis Pedis Doppler -Hair Growth on Legs -Hair Growth on Toes -Temperature of Extremity -Capillary Refill -Thick -Discolored -Deformed Communication Assessment Preferred foreign language interpreter Required Able to Read Able to Write Communication Tools Caregiver Communication Skills Impairment Right Hearing Abillity Left Hearing Abillity Visual Assistive Devices Teaching Assessment Preferences Barriers to Learning Readiness To Learn Willingness to Engage in Self Management Activies Readiness to Engage in Self Management Activities Anxiety Level Cooperation Perception Interest in Health Problem Education Importance Does Patient Smoke tobacco or other substances Smoking Status Is Patient Diabetic Functional Assessment Recent Decline in Ability to Perform Culture/Samaritan/Sprinkling System Installer Cultural/Samaritan Needs that may affect Treatment Plan Would you allow our hospital software support engineer to meet you for the purpose of spiritual/ emotional support? Sprinkling System Installer to contact place of scientologist WC - Nurse 1 - General Ulcer Measurement Start: 11/01/23 14:02 Freq: Status: Active Protocol: Activity Type Activity Date Activity User E-sign Co-sign Detail Recorded Client Recorded Date Recorded By Document 11/01/23 14:02 KW l 11/01/23 14:31 KW Document 11/08/23 14:36 DS 1 11/08/23 14:48 DS Document 11/15/23 14:22 DS 1 11/15/23 14:29 DS 11/01/23 11/08/23 11/15/23 14:02 14:36 14:22 Wound Center Nurse 1 #2 RT 2ND TOE -Combined with other wound No -Current Size (cm) - Length 2 0.1 0.1 -Current Size (cm) - Width 0.8 0.1 0.1 -Current Size (cm) - Depth 0.1 0.1 0.1 -Total Square Cm 1.6 0.01 0.01 -Date of Last Picture (Recall this 11/01/23 field) -Photo Taken No -Tunneling No -Undermining/Tunneling No -Circular Undermining No -Exudate Amt None Present Small -Exudate Type Serosanguineous -Wound Margin Distinct, Distinct, Outline Outline Attached Attached -Granulation Amt Small (1-33%) Medium (34-66%) -Granulation Quality Red Helper -Slough/Fibrin Yes -Necrosis Amt Large (67-100%) Large (67-100%) Medium (34-66%) -Necrotic Tissue Type Eschar Adherent Slough Adherent Slough -Structure Exposed N/A -Texture (Supriya-wound Skin Appearance) Assessed Assessed Assessed -Moisture (Supriya-wound Skin Appearance) Assessed Assessed Assessed -Color (Supriya-wound Skin Appearance) Assessed, Assessed Assessed Erythema -Temperature (Supriya-wound Skin No Abnormality No Abnormality Appearance) (Pt Warm) (Pt Warm) -Tenderness on Palpation (Supriya-wound No No Skin Appearance) -Ulcer Cleansing Soap and Water Soap and Water Wound Cleanser -Foul Odor after Cleansing No No -Anesthetic Used 5% Lidocaine 5% Lidocaine 4% Lidocaine Gel Gel Solution,5% Lidocaine Gel #1 LLE CLUSTER -Combined with other wound No No -Current Size (cm) - Length 6 9.8 9.5 -Current Size (cm) - Width 9.5 9.4 10.5 -Current Size (cm) - Depth 0.3 0.1 0.1 -Total Square Cm 57.0 92.12 99.75 -Date of Last Picture (Recall this 11/01/23 field) -Photo Taken No -Tunneling No No -Undermining/Tunneling No No -Circular Undermining No No -Exudate Amt Medium Large -Exudate Type Serosanguineous Serosanguineous -Wound Margin Distinct, Distinct, Outline Outline Attached Attached -Granulation Amt Medium (34-66%) Large (67-100%) -Granulation Quality Red Helper -Slough/Fibrin Yes -Necrosis Amt Large (67-100%) Large (67-100%) Medium (34-66%) -Necrotic Tissue Type Adherent Slough Adherent Slough Adherent Slough -Structure Exposed N/A -Texture (Supriya-wound Skin Appearance) Assessed Assessed Assessed -Moisture (Supriya-wound Skin Appearance) Assessed, Assessed Assessed, Maceration Maceration -Color (Supriya-wound Skin Appearance) Erythema Assessed Erythema -Temperature (Supriya-wound Skin No Abnormality No Abnormality No Abnormality Appearance) (Pt Warm) (Pt Warm) (Pt Warm) -Tenderness on Palpation (Supriya-wound No Yes No Skin Appearance) -Ulcer Cleansing Soap and Water Soap and Water Wound Cleanser -Foul Odor after Cleansing No No -Anesthetic Used 4% Lidocaine 5% Lidocaine 4% Lidocaine Solution Gel Solution Right Calf (cm) 32 Right Ankle (cm) 21 Left Calf (cm) 35 35.2 Left Ankle (cm) 21 20.2 WC - Nurse 2 - General Ulcer CM Notes Start: 11/01/23 14:02 Freq: Status: Active Protocol: Activity Type Activity Date Activity User E-sign Co-sign Detail Recorded Client Recorded Date Recorded By Document 11/01/23 14:53 JF 0000 11/01/23 14:58 JF Document 11/08/23 15:03 DS 1 11/08/23 15:09 DS Edit Result 11/08/23 15:03 DS (1) [id number] 11/08/23 15:26 DS Document 11/15/23 14:36 DS 1 11/15/23 14:40 DS (1) #2 RT 2ND TOE - Correct Patient => No - Correct Side, Site, Position => No - Correct Procedure => No - Procedure Performed => No - Tunneling => No - Undermining/Tunneling => No - Circular Undermining => No - Wound/Ulcer Outcome => Not Healed 11/01/23 11/08/23 11/15/23 14:53 15:03 14:36 Wound Center Nurse 2 #2 RT 2ND TOE -Correct Patient No No -Correct Side, Site, Position No No -Correct Procedure No No -Procedure Performed No No -Tunneling No -Undermining/Tunneling No -Circular Undermining No -Wound/Ulcer Outcome Not Healed Not Healed #1 LLE CLUSTER -Time 14:53 15:03 14:30 -Correct Patient Yes Yes Yes -Correct Side, Site, Position Yes Yes Yes -Correct Procedure Yes Yes Yes -Procedure Performed Yes Yes Yes -Type of Procedure Debridement Debridement Debridement -Clinical Debridement Subcutaneous Subcutaneous Subcutaneous -Tissue Removed Subcutaneous Subcutaneous Subcutaneous -Post Debridement (cm) - Length 5.7 7.0 10.5 -Post Debridement (cm) - Width 4.7 9.8 9.5 -Post Debridement (cm) - Depth 0.2 0.2 0.1 -Total Square (Post) (cm) 26.79 68.60 99.75 -Area of Debridement (cm) - Length 5.7 7.0 10.5 -Area of Debridement (cm) - Width 4.7 9.8 9.5 -Total Square (Area) (cm) 26.79 68.60 99.75 -Tunneling No No No -Undermining/Tunneling No No No -Circular Undermining No No No -Wound/Ulcer Outcome Not Healed Not Healed Not Healed -Ulcer Cleansing Rinsed/ Irrigated with Saline -Foul Odor after Cleansing No -Bioengineered Tissue No -Bleeding Controlled with Pressure Pressure Pressure -Treatment Response Procedure Procedure Procedure Tolerated Well Tolerated Well Tolerated Well -Offloading No -Debridement - Subq, 1st 20sq cm Yes Yes Yes -Debridement, SubQ, ea addt'l 20sq cm 1 3 4 or part thereof Pain Scale: 0-10 Numeric Is Patient Pain Free? Yes No No left lower leg -Description Sharp Sharp,Burning -Intensity 5 10 -Duration (hours) Acute Acute -Pain Behavior Guarding Guarding, Withdrawal from Touch -Pain Aggravating Factors Debridement ADL's -Alleviating Factors/Interventions Will continue Will continue to monitor, to monitor, Emotional Emotional Support Support,None -Effectiveness of Alleviating Factor/ Moderately Intervention effective WC - Nurse 3 - General Ulcer D/C NN Start: 11/01/23 14:02 Freq: Status: Active Protocol: Activity Type Activity Date Activity User E-sign Co-sign Detail Recorded Client Recorded Date Recorded By Document 11/01/23 15:19 KW l 11/01/23 15:26 KW Document 11/08/23 15:52 RB wound 11/08/23 15:54 RB Document 11/15/23 15:03 KW l 11/15/23 15:07 KW 11/01/23 11/08/23 11/15/23 15:19 15:52 15:03 Wound Care Center Nurse 3 #2 RT 2ND TOE -Ulcer Cleansing Rinsed/ Irrigated with Saline -Other Dressing hydrogel -Primary Dressing Covered/Secured with Dry Gauze, Secured with Tape #1 LLE CLUSTER -Ulcer Cleansing Rinsed/ Irrigated with Saline -Other Dressing HYDROGEL UNTIL hydrogel / ABD/ SANTYL SHE GETS SANTYL gauze roll AND HYDROCORTISONE CREAM 1% -Primary Dressing Covered/Secured with Dry Gauze & Dry Gauze & Dry Gauze & Roll Gauze, Roll Gauze, Roll Gauze, Secured with Secured with Secured with Tape Tape Tape Left -Tubular Bandage Single Layer -Size of Tubigrip Used Size D -Size D ($) 1 Treatment Response Procedure Tolerated Well Pain Scale: 0-10 Numeric Is Patient Pain Free? Yes No Yes left lower leg -Description Aching -Intensity 5 -Duration (hours) Acute -Pain Behavior Withdrawal from Touch -Pain Aggravating Factors Exercise/ Activity -Alleviating Factors/Interventions Medication -Effectiveness of Alleviating Factor/ Minimally Intervention effective WC - Visit Discharge Discharge Condition Stable Stable Stable Ambulatory Status Ambulatory,Cane Ambulatory,Cane Ambulatory,Cane Transportation Private Auto Private Auto Private Auto Medication Reconcilliation completed & No No No provided to patient/care provider Clinical Summary of Care Provided Yes Yes Yes Notes: Pt Refused tubigrip today Charges/Coding Multi Select Codes Integumentary Integumentary CPT Codes: 65208 Edith subq tissue 20 sq cm/< (18598 X 4) Assessment/Plan Assessment/Plan (1) Leg ulcer, left: CODE(S): L97.929 - Non-pressure chronic ulcer of unspecified part of left lower leg with unspecified severity QUALIFIERS: Non-pressure ulcer stage: with fat layer exposed Qualified Code(s): L97.922 - Non-pressure chronic ulcer of unspecified part of left lower leg with fat layer exposed (2) Chronic venous insufficiency: CODE(S): I87.2 - Venous insufficiency (chronic) (peripheral) (3) Contact dermatitis: CODE(S): L25.9 - Unspecified contact dermatitis, unspecified cause QUALIFIERS: Contact dermatitis type: irritant Contact dermatitis trigger: other chemical product Qualified Code(s): L24.5 - Irritant contact dermatitis due to other chemical products (4) Left leg swelling: CODE(S): M79.89 - Other specified soft tissue disorders (5) Gastroesophageal reflux disease: CODE(S): K21.9 - Gastro-esophageal reflux disease without esophagitis (6) Hyperlipidemia: CODE(S): E78.5 - Hyperlipidemia, unspecified (7) Tobacco abuse: CODE(S): Z72.0 - Tobacco use (8) Tobacco abuse counseling: CODE(S): Z71.6 - Tobacco abuse counseling (9) Hypertension: CODE(S): I10 - Essential (primary) hypertension (10) Psoriasis of scalp: CODE(S): L40.9 - Psoriasis, unspecified (11) Osteoarthritis of knees, bilateral: CODE(S): M17.0 - Bilateral primary osteoarthritis of knee (12) Prediabetes: CODE(S): R73.03 - Prediabetes (13) History of tonsillectomy: CODE(S): Z90.89 - Acquired absence of other organs PLAN: Plan This is an 78-year-old female who presented with an ulceration of the left pretibial surface and lateral calf of approximately 1 year duration. It had failed to heal appropriately. She had been previously treated for suspected cellulitis with a course of oral doxycycline. The ulceration demonstrates a large amount of bioburden and nonviable tissue, which is somewhat resistant to removal by debridement. As result, we are to continue the use of collagenase Santyl topically to the ulceration. The patient has been instructed in the appropriate means of application. She has been provided a prescription for collagenase Santyl, which has been obtained. The patient has been advised to discontinue her smoking habit. Optimization of glycemic control and nutrition has been recommended. Erythema remains over a good portion of the left gaiter area, though appears to be slightly less prominent. This appears to be a contact dermatitis, and the patient has been advised to continue with topical hydrocortisone 1% ointment topically on a daily basis. She has been using a hydrocortisone with other additives, and it has been suggested that she obtain a hydrocortisone product for topical use without other additives. The patient has discontinued the use of Telfa and Vaseline, which she had been using previously. A swab culture has been obtained today for aerobic and anaerobic bacterial growth, the results of which will be awaited. The patient has been advised to elevate her left lower extremity is much as possible, even during daytime hours. Elevation is to be to heart level, or higher. A Tubigrip of 20 to 30 mmHg has been provided to the patient for daily use. It appears as though the patient has been somewhat noncompliant in the use of Tubigrip's for compression. There is also a question regarding compliance with leg elevation. With regard to the dry eschar on the dorsum of the right second toe, the patient has been advised to maintain a dry gauze dressing, and to avoid friction or pressure from ill-fitted footwear. We are to monitor this site on a serial basis. The patient is to return in 1 week for reevaluation. Total time: 25 minutes
[2023-11-22 14:18] VITALS: BP 138/54; PULSE 52; RESP 18; TEMP 36.5; BMI 24.3
--- NOTE | 2023-11-23 18:08 | HP.PCM_ITS ---
History of Present Illness Date of Service: 11/22/23 Chief Complaint: Clustered left pretibial ulceration with severe contact d ermatitis History of Wound: This is an 78-year-old female who presented with an ulceration of the left pretibial surface which had been present for approximately 1 year. The ulceration had failed to heal. The patient was evaluated at [facility] on October 20, 2023, at which time supriya-ulcer erythema, thought to be cellulitis, prompted treatment with a course of oral antibiotics. The patient had completed a course of oral doxycycline. Most recently, at the advice of her primary care physician, the patient had been using Vaseline liberally on the ulceration and surrounding skin, and covering with Telfa. The patient is a smoker, and has been instructed as to the hazards of smoking, and advised to discontinue the habit. She smokes one-half a pack of cigarettes per day, and has done so for many years. The patient is of relatively normal body habitus, with a BMI of 24.3. She is active, and sleeps on a flat mattress at night. She does relate a history of mild left lower extremity swelling. She denied a history of thrombophlebitis. [facility] Medical History Chronic venous insufficiency Left leg swelling Contact dermatitis Leg ulcer, left Prediabetes Osteoarthritis of knees, bilateral Psoriasis of scalp Hypertension Tobacco abuse counseling Tobacco abuse Hyperlipidemia Gastroesophageal reflux disease Home Medications ?Medication ?Instructions ?Recorded ?Last Taken ?Type atorvastatin 40 mg tablet 40 mg PO DAILY 11/01/23 Unknown History chlorthalidone 25 mg tablet 25 mg PO DAILY 11/01/23 Unknown History coenzyme Q10 100 mg capsule (Co 100 mg PO DAILY 11/01/23 Unknown History Q-10) folic acid 0.8 mg capsule 800 mcg PO DAILY 11/01/23 Unknown History metoprolol succinate 100 mg 100 mg PO DAILY 11/01/23 Unknown History tablet,extended release 24 hr metoprolol succinate 200 mg 200 mg PO DAILY 11/01/23 Unknown History tablet,extended release 24 hr omeprazole 10 mg capsule,delayed 10 mg PO DAILY 11/01/23 Unknown History release Allergy/AdvReac Type Severity Reaction Status Date / Time amlodipine Allergy Rash Verified 11/01/23 16:02 hydrochlorothiazide Allergy Other Verified 11/01/23 16:02 olmesartan Allergy Other Verified 11/01/23 16:02 simvastatin Allergy Other Verified 11/01/23 16:02 Sulfa (Sulfonamide Allergy Other Verified 11/01/23 16:02 Antibiotics) Surgical History History of tonsillectomy Social History Smoking Status: Current every day smoker Vital Signs Vital Signs Vital Signs: Weight Weight: 142 lb Body Mass Index (BMI) 24.3 Physical Exam Const alert, oriented x3, no apparent distress, average body habitus, no limitations and well nourished General Appearance: cooperative, comfortable, well kempt and well developed Orientation / Consciousness: awake, oriented to person, oriented to place and oriented to time HEENT normocephalic and head/scalp atraumatic Head and Scalp: normal to inspection, normocephalic and atraumatic External Ear: external ears normal Eyes EOMs intact bilaterally General Eye: normal appearance of both eyes Neck full ROM Resp normal respiratory effort, normal air movement, no retractions, no use of accessory muscles and clear to auscultation bilaterally Effort and Inspection: able to speak in complete sentences Cardio regular rate, regular rhythm, S1 normal heart sound and S2 normal heart sound Extremity no calf tenderness General Extremity: Negative for clubbing or cyanosis Skin Wound Narrative: A clustered ulceration is noted on the left pretibial surface and lateral calf. It extends down into the subcutaneous tissue. There is a moderate amount of bioburden and nonviable tissue, which is yellow in appearance. Dimensions of the ulceration are documented elsewhere. A large portion of the left gaiter area remains bright red and erythematous in appearance, though markedly improved. The erythema has been sharply demarcated superiorly and inferiorly in linear fashion to suggest that it was a contact dermatitis rather than cellulitic in nature. The erythema has receded somewhat, and there is no longer a sharp demarcation as have been noted previously. A swab culture was obtained for aerobic and anaerobic bacterial growth last week, the results of which were positive for Proteus mirabilis, Staphylococcus aureus, Enterococcus faecalis, and Pseudomonas aeruginosa. In accordance with the sensitivity results, the patient has been placed on Levaquin 500 milligrams p.o. daily for a total of 10 days. No significant swelling is noted in the patient's left lower extremity. There is also a dry eschar on the dorsal aspect of the patient's right second toe. This is without signs of infection or cellulitis. The patient indicates that this was caused by either her dog, who stepped on her foot, or an ill- fitting shoe. She has been repeatedly advised to be sure that her shoes are properly fitted. We are to continue to monitor this right second toe eschar, without any specific management recommendations, other than offloading. Neuro oriented x3, CN's II-XII intact bilaterally, moves all extremities and no focal motor deficits Sensorium / Orientation: awake, alert, oriented to person, oriented to place and oriented to time Psych Appearance: grossly normal and appropriate Attitude: calm Activity / Motor Behavior: appropriate eye contact Speech: normal speech Mood & Affect: euthymic mood Thought Process: normal thought process Thought Content: normal thought content Attention / Concentration: attention grossly intact Debridement Note Debridement Note Wound debrided: Left pretibial and lateral calf ulceration Laterality: Left Type of Debridement: Excisional debridement Anesthesia Used: 5% Lidocaine Gel and Cetacaine Depth: Down to and including healthy tissue and in the subcutaneous layer Percentage of wound debrided: 100 Instrument Used: 5mm curette Tissue Removed: Bioburden and nonviable tissue Severity: Fat Layer Exposed Amount of bleeding with debridement: Mild Bleeding Controlled with: Compression and gauze Patient tolerated procedure: Patient tolerated procedure well Debridement Free Text: The patient's wound is clustered, covering a significant area on both the left anterior and lateral calf. Post-Debridement Measurements and Additional Note: Post-Debridement Measurements/Treatment WC - Nurse 1 - General Ulcer Assessment Start: 11/01/23 14:02 Freq: Status: Active Protocol: PATRICIO.ANNABEL Activity Type Activity Date Activity User E-sign Co-sign Detail Recorded Client Recorded Date Recorded By Document 11/01/23 14:02 KW l 11/01/23 14:31 KW Document 11/08/23 14:36 DS 1 11/08/23 14:48 DS Document 11/15/23 14:16 DS 1 11/15/23 14:17 DS Document 11/15/23 14:22 DS 1 11/15/23 14:29 DS Document 11/22/23 14:18 KW gj 11/22/23 14:32 KW 11/01/23 11/08/23 11/15/23 14:02 14:36 14:16 WC - Today's Visit Information Type of service Initial Visit Follow-up Visit Follow-up Visit (Physician/TIMING ADJUSTER (Physician/TIMING ADJUSTER ) ) Arrival Mode Ambulatory,Cane Ambulatory,Cane Ambulatory,Cane Transfer Assistance Accompanied by FRIEND- HIMA Patient Identification Verified (Name & Yes ) Patient Requires Transmission-Based No Precautions Safety Precautions Fall Prevention Height and Weight Height 5 ft 4 in Weight 142 lb Weight in Pounds 142.0 lbs Body Mass Index (BMI) 24.3 24.3 24.3 BMI Classification Normal Normal Normal BSA - Phyllis 1.69 Vital Signs Temperature (97.8 F-99.1 F) 98.1 F 96.8 F L 97.1 F L Temperature Source Temporal Temporal Temporal Pulse Rate (60-100) 67 54 L 61 Pulse Location Monitor Monitor Monitor Respiratory Rate (12-18) 18 18 18 Respiratory rate source Observation Observation Observation Oxygen Delivery Method Room Air Room Air Room Air Blood Pressure (90/60-120/80) 135/75 H 148/51 H 133/67 H Blood Pressure Mean 95 83 89 Source Monitor Monitor Monitor Position Semi-Fowlers Sitting Sitting Blood Pressure Location Left Arm Right Arm Right Arm History Since Last Visit- (Skip if this is Patient's initial visit) Have you changed medications since your No No last visit? Any new allergies or adverse reactions No No Had a fall/change in ADL's that may No No increase risk of falls Signs or symptoms of abuse and/or No No neglect since last visit Have you been in the hospital since your No No last visit? Has dressing in place as prescribed Yes Yes Has compression in place as prescribed N/A N/A Has offloadiing in place as prescribed N/A No Experienced any changes in pain level or No management Left Footwear Regular Shoe Regular Shoe Regular Shoe Right Footwear Regular Shoe Regular Shoe Regular Shoe Pain Scale: 0-10 Numeric Is Patient Pain Free? Yes No No left lower leg -Description Aching Aching -Intensity 2 8 -Duration (hours) Acute -Pain Behavior No Change in Irritability Behavior -Pain Aggravating Factors -Alleviating Factors/Interventions Will continue Will continue to monitor, to monitor, Emotional Emotional Support,None Support -Effectiveness of Alleviating Factor/ Intervention Lower Extremity Assessment/ Foot Assessment/ Toe Nail Assessment Right -Posterior Tibial Doppler Monophasic -Dorsalis Pedis Doppler Monophasic -Hair Growth on Legs No -Hair Growth on Toes No -Temperature of Extremity Cool -Capillary Refill Less than 3 Seconds -Thick Yes -Discolored Yes -Deformed Yes Left -Posterior Tibial Doppler Monophasic -Dorsalis Pedis Doppler Multiphasic -Hair Growth on Legs No -Hair Growth on Toes No -Temperature of Extremity Cool -Capillary Refill Less than 3 Seconds -Thick Yes -Discolored Yes -Deformed Yes Communication Assessment Preferred language Persian Tire Finisher Required No Able to Read Yes Able to Write Yes Communication Tools None Caregiver Communication Skills No Impairment Impairment Right Hearing Abillity Normal Left Hearing Abillity Normal Visual Assistive Devices None Teaching Assessment Preferences Verbal,Written, Demonstration Barriers to Learning None Readiness To Learn Excellent Willingness to Engage in Self Management High Activies Readiness to Engage in Self Management High Activities Anxiety Level Calm Cooperation Cooperative Perception Coherent Interest in Health Problem Asks Questions Education Importance Acknowledges Need Does Patient Smoke tobacco or other Yes substances Smoking Status Current every day smoker Is Patient Diabetic No Functional Assessment Recent Decline in Ability to Perform Denies Any Declines Culture/Sabianist/Process Safety Manager Cultural/Sabianist Needs that may affect No Treatment Plan Would you allow our [facility] hydroelectric operator to No meet you for the purpose of spiritual/ emotional support? Process Safety Manager to contact place of anabaptism No 11/15/23 11/22/23 14:22 14:18 WC - Today's Visit Information Type of service Follow-up Visit Follow-up Visit (Physician/TIMING ADJUSTER (Physician/TIMING ADJUSTER ) ) Arrival Mode Ambulatory Ambulatory,Cane Transfer Assistance None Accompanied by Patient Identification Verified (Name & Yes Yes ) Patient Requires Transmission-Based No Precautions Safety Precautions Height and Weight Height Weight Weight in Pounds Body Mass Index (BMI) 24.3 24.3 BMI Classification Normal Normal [facility] [place] Vital Signs Temperature (97.8 F-99.1 F) 97.8 F 97.7 F L Temperature Source Temporal Temporal Pulse Rate (60-100) 67 52 L Pulse Location Monitor Monitor Respiratory Rate (12-18) 18 18 Respiratory rate source Observation Observation Oxygen Delivery Method Room Air Blood Pressure (90/60-120/80) 133/61 H 138/54 H Blood Pressure Mean 85 82 Source Monitor Monitor Position Semi-Fowlers Semi-Fowlers Blood Pressure Location Left Arm Left Arm History Since Last Visit- (Skip if this is Patient's initial visit) Have you changed medications since your No No last visit? Any new allergies or adverse reactions No No Had a fall/change in ADL's that may No No increase risk of falls Signs or symptoms of abuse and/or No No neglect since last visit Have you been in the hospital since your No No last visit? Has dressing in place as prescribed Yes Yes Has compression in place as prescribed No Yes Has offloadiing in place as prescribed No N/A Experienced any changes in pain level or No No management Left Footwear Regular Shoe Right Footwear Regular Shoe Pain Scale: 0-10 Numeric Is Patient Pain Free? No Yes left lower leg -Description Sharp,Burning -Intensity 10 6 -Duration (hours) Acute -Pain Behavior Guarding, Withdrawal from Touch -Pain Aggravating Factors ADL's -Alleviating Factors/Interventions None Medication -Effectiveness of Alleviating Factor/ Moderately Intervention effective Lower Extremity Assessment/ Foot Assessment/ Toe Nail Assessment Right -Posterior Tibial Doppler -Dorsalis Pedis Doppler -Hair Growth on Legs -Hair Growth on Toes -Temperature of Extremity -Capillary Refill -Thick -Discolored -Deformed Left -Posterior Tibial Doppler -Dorsalis Pedis Doppler -Hair Growth on Legs -Hair Growth on Toes -Temperature of Extremity -Capillary Refill -Thick -Discolored -Deformed Communication Assessment Preferred ironworker foreman Required Able to Read Able to Write Communication Tools Caregiver Communication Skills Impairment Right Hearing Abillity Left Hearing Abillity Visual Assistive Devices Teaching Assessment Preferences Barriers to Learning Readiness To Learn Willingness to Engage in Self Management Activies Readiness to Engage in Self Management Activities Anxiety Level Cooperation Perception Interest in Health Problem Education Importance Does Patient Smoke tobacco or other substances Smoking Status Is Patient Diabetic Functional Assessment Recent Decline in Ability to Perform Culture/Sabianist/Process Safety Manager Cultural/Sabianist Needs that may affect Treatment Plan Would you allow our hospital hydroelectric operator to meet you for the purpose of spiritual/ emotional support? Process Safety Manager to contact place of anabaptism WC - Nurse 1 - General Ulcer Measurement Start: 11/01/23 14:02 Freq: Status: Active Protocol: Activity Type Activity Date Activity User E-sign Co-sign Detail Recorded Client Recorded Date Recorded By Document 11/01/23 14:02 KW l 11/01/23 14:31 KW Document 11/08/23 14:36 DS 1 11/08/23 14:48 DS Document 11/15/23 14:22 DS 1 11/15/23 14:29 DS Document 11/22/23 14:18 KW gj 11/22/23 14:32 KW 11/01/23 11/08/23 11/15/23 14:02 14:36 14:22 Wound Center Nurse 1 #2 RT 2ND TOE -Combined with other wound No -Current Size (cm) - Length 2 0.1 0.1 -Current Size (cm) - Width 0.8 0.1 0.1 -Current Size (cm) - Depth 0.1 0.1 0.1 -Total Square Cm 1.6 0.01 0.01 -Date of Last Picture (Recall this 11/01/23 field) -Photo Taken No -Tunneling No -Undermining/Tunneling No -Circular Undermining No -Exudate Amt None Present Small -Exudate Type Serosanguineous -Wound Margin Distinct, Distinct, Outline Outline Attached Attached -Granulation Amt Small (1-33%) Medium (34-66%) -Granulation Quality [place] -Slough/Fibrin Yes -Necrosis Amt Large (67-100%) Large (67-100%) Medium (34-66%) -Necrotic Tissue Type Eschar Adherent Slough Adherent Slough -Structure Exposed N/A -Texture (Supriya-wound Skin Appearance) Assessed Assessed Assessed -Moisture (Supriya-wound Skin Appearance) Assessed Assessed Assessed -Color (Supriya-wound Skin Appearance) Assessed, Assessed Assessed Erythema -Temperature (Supriya-wound Skin No Abnormality No Abnormality Appearance) (Pt Warm) (Pt Warm) -Tenderness on Palpation (Supriya-wound No No Skin Appearance) -Ulcer Cleansing Soap and Water Soap and Water Wound Cleanser -Foul Odor after Cleansing No No -Anesthetic Used 5% Lidocaine 5% Lidocaine 4% Lidocaine Gel Gel Solution,5% Lidocaine Gel #1 LLE CLUSTER -Combined with other wound No No -Current Size (cm) - Length 6 9.8 9.5 -Current Size (cm) - Width 9.5 9.4 10.5 -Current Size (cm) - Depth 0.3 0.1 0.1 -Total Square Cm 57.0 92.12 99.75 -Date of Last Picture (Recall this 11/01/23 field) -Photo Taken No -Tunneling No No -Undermining/Tunneling No No -Circular Undermining No No -Exudate Amt Medium Large -Exudate Type Serosanguineous Serosanguineous -Wound Margin Distinct, Distinct, Outline Outline Attached Attached -Granulation Amt Medium (34-66%) Large (67-100%) -Granulation Quality [place] -Slough/Fibrin Yes -Necrosis Amt Large (67-100%) Large (67-100%) Medium (34-66%) -Necrotic Tissue Type Adherent Slough Adherent Slough Adherent Slough -Structure Exposed N/A -Texture (Supriya-wound Skin Appearance) Assessed Assessed Assessed -Moisture (Supriya-wound Skin Appearance) Assessed, Assessed Assessed, Maceration Maceration -Color (Supriya-wound Skin Appearance) Erythema Assessed Erythema -Temperature (Supriya-wound Skin No Abnormality No Abnormality No Abnormality Appearance) (Pt Warm) (Pt Warm) (Pt Warm) -Tenderness on Palpation (Supriya-wound No Yes No Skin Appearance) -Ulcer Cleansing Soap and Water Soap and Water Wound Cleanser -Foul Odor after Cleansing No No -Anesthetic Used 4% Lidocaine 5% Lidocaine 4% Lidocaine Solution Gel Solution Right Calf (cm) 32 Right Ankle (cm) 21 Left Calf (cm) 35 35.2 Left Ankle (cm) 21 20.2 11/22/23 14:18 Wound Center Nurse 1 #2 RT 2ND TOE -Combined with other wound -Current Size (cm) - Length -Current Size (cm) - Width -Current Size (cm) - Depth -Total Square Cm -Date of Last Picture (Recall this field) -Photo Taken -Tunneling -Undermining/Tunneling -Circular Undermining -Exudate Amt -Exudate Type Serosanguineous -Wound Margin -Granulation Amt -Granulation Quality -Slough/Fibrin -Necrosis Amt Small (1-33%) -Necrotic Tissue Type -Structure Exposed -Texture (Supriya-wound Skin Appearance) -Moisture (Supriya-wound Skin Appearance) -Color (Supriya-wound Skin Appearance) -Temperature (Supriya-wound Skin Appearance) -Tenderness on Palpation (Supriya-wound Skin Appearance) -Ulcer Cleansing -Foul Odor after Cleansing -Anesthetic Used #1 LLE CLUSTER -Combined with other wound -Current Size (cm) - Length 9.5 -Current Size (cm) - Width 12 -Current Size (cm) - Depth 0.2 -Total Square Cm 114.0 -Date of Last Picture (Recall this 11/22/23 field) -Photo Taken -Tunneling -Undermining/Tunneling -Circular Undermining -Exudate Amt Medium -Exudate Type Serosanguineous -Wound Margin Distinct, Outline Attached -Granulation Amt Medium (34-66%) -Granulation Quality Red -Slough/Fibrin -Necrosis Amt Medium (34-66%) -Necrotic Tissue Type Adherent Slough -Structure Exposed -Texture (Supriya-wound Skin Appearance) Assessed -Moisture (Supriya-wound Skin Appearance) Assessed -Color (Supriya-wound Skin Appearance) Assessed, Erythema -Temperature (Supriya-wound Skin No Abnormality Appearance) (Pt Warm) -Tenderness on Palpation (Supriya-wound No Skin Appearance) -Ulcer Cleansing Soap and Water -Foul Odor after Cleansing No -Anesthetic Used 4% Lidocaine Solution Right Calf (cm) Right Ankle (cm) Left Calf (cm) 34.2 Left Ankle (cm) 21 WC - Nurse 2 - General Ulcer CM Notes Start: 11/01/23 14:02 Freq: Status: Active Protocol: Activity Type Activity Date Activity User E-sign Co-sign Detail Recorded Client Recorded Date Recorded By Document 11/01/23 14:53 JF 0000 11/01/23 14:58 JF Document 11/08/23 15:03 DS 1 11/08/23 15:09 DS Edit Result 11/08/23 15:03 DS (1) [id number] 11/08/23 15:26 DS Document 11/15/23 14:36 DS 1 11/15/23 14:40 DS Document 11/22/23 14:58 JF 0000 11/22/23 15:05 JF (1) #2 RT 2ND TOE - Correct Patient => No - Correct Side, Site, Position => No - Correct Procedure => No - Procedure Performed => No - Tunneling => No - Undermining/Tunneling => No - Circular Undermining => No - Wound/Ulcer Outcome => Not Healed 11/01/23 11/08/23 11/15/23 14:53 15:03 14:36 Wound Center Nurse 2 #2 RT 2ND TOE -Correct Patient No No -Correct Side, Site, Position No No -Correct Procedure No No -Procedure Performed No No -Tunneling No -Undermining/Tunneling No -Circular Undermining No -Wound/Ulcer Outcome Not Healed Not Healed #1 LLE CLUSTER -Time 14:53 15:03 14:30 -Correct Patient Yes Yes Yes -Correct Side, Site, Position Yes Yes Yes -Correct Procedure Yes Yes Yes -Procedure Performed Yes Yes Yes -Type of Procedure Debridement Debridement Debridement -Clinical Debridement Subcutaneous Subcutaneous Subcutaneous -Tissue Removed Subcutaneous Subcutaneous Subcutaneous -Post Debridement (cm) - Length 5.7 7.0 10.5 -Post Debridement (cm) - Width 4.7 9.8 9.5 -Post Debridement (cm) - Depth 0.2 0.2 0.1 -Total Square (Post) (cm) 26.79 68.60 99.75 -Area of Debridement (cm) - Length 5.7 7.0 10.5 -Area of Debridement (cm) - Width 4.7 9.8 9.5 -Total Square (Area) (cm) 26.79 68.60 99.75 -Tunneling No No No -Undermining/Tunneling No No No -Circular Undermining No No No -Wound/Ulcer Outcome Not Healed Not Healed Not Healed -Ulcer Cleansing Rinsed/ Irrigated with Saline -Foul Odor after Cleansing No -Bioengineered Tissue No -Bleeding Controlled with Pressure Pressure Pressure -Treatment Response Procedure Procedure Procedure Tolerated Well Tolerated Well Tolerated Well -Offloading No -Debridement - Subq, 1st 20sq cm Yes Yes Yes -Debridement, SubQ, ea addt'l 20sq cm 1 3 4 or part thereof Pain Scale: 0-10 Numeric Is Patient Pain Free? Yes No No left lower leg -Description Sharp Sharp,Burning -Intensity 5 10 -Duration (hours) Acute Acute -Pain Behavior Guarding Guarding, Withdrawal from Touch -Pain Aggravating Factors Debridement ADL's -Alleviating Factors/Interventions Will continue Will continue to monitor, to monitor, Emotional Emotional Support Support,None -Effectiveness of Alleviating Factor/ Moderately Intervention effective 11/22/23 14:58 Wound Center Nurse 2 #2 RT 2ND TOE -Correct Patient No -Correct Side, Site, Position No -Correct Procedure No -Procedure Performed No -Tunneling -Undermining/Tunneling -Circular Undermining -Wound/Ulcer Outcome Not Healed #1 LLE CLUSTER -Time 14:58 -Correct Patient Yes -Correct Side, Site, Position Yes -Correct Procedure Yes -Procedure Performed Yes -Type of Procedure Debridement -Clinical Debridement Subcutaneous -Tissue Removed Subcutaneous -Post Debridement (cm) - Length 9.0 -Post Debridement (cm) - Width 11.5 -Post Debridement (cm) - Depth 0.1 -Total Square (Post) (cm) 103.50 -Area of Debridement (cm) - Length 9.0 -Area of Debridement (cm) - Width 11.5 -Total Square (Area) (cm) 103.50 -Tunneling No -Undermining/Tunneling No -Circular Undermining No -Wound/Ulcer Outcome Not Healed -Ulcer Cleansing Rinsed/ Irrigated with Saline -Foul Odor after Cleansing No -Bioengineered Tissue No -Bleeding Controlled with Pressure -Treatment Response Procedure Tolerated Well -Offloading No -Debridement - Subq, 1st 20sq cm Yes -Debridement, SubQ, ea addt'l 20sq cm 5 or part thereof Pain Scale: 0-10 Numeric Is Patient Pain Free? Yes left lower leg -Description -Intensity -Duration (hours) -Pain Behavior -Pain Aggravating Factors -Alleviating Factors/Interventions -Effectiveness of Alleviating Factor/ Intervention WC - Nurse 3 - General Ulcer D/C NN Start: 11/01/23 14:02 Freq: Status: Active Protocol: Activity Type Activity Date Activity User E-sign Co-sign Detail Recorded Client Recorded Date Recorded By Document 11/01/23 15:19 KW l 11/01/23 15:26 KW Document 11/08/23 15:52 RB wound 11/08/23 15:54 RB Document 11/15/23 15:03 KW l 11/15/23 15:07 KW Document 11/22/23 15:32 RB wound 11/22/23 15:34 RB 11/01/23 11/08/23 11/15/23 15:19 15:52 15:03 Wound Care Center Nurse 3 #2 RT 2ND TOE -Ulcer Cleansing Rinsed/ Irrigated with Saline -Other Dressing hydrogel -Primary Dressing Covered/Secured with Dry Gauze, Secured with Tape #1 LLE CLUSTER -Ulcer Cleansing Rinsed/ Irrigated with Saline -Primary Dressing Applied -Other Dressing HYDROGEL UNTIL hydrogel / ABD/ SANTYL SHE GETS SANTYL gauze roll AND HYDROCORTISONE CREAM 1% -Primary Dressing Covered/Secured with Dry Gauze & Dry Gauze & Dry Gauze & Roll Gauze, Roll Gauze, Roll Gauze, Secured with Secured with Secured with Tape Tape Tape Left -Tubular Bandage Single Layer -Size of Tubigrip Used Size D -Size D ($) 1 Treatment Response Procedure Tolerated Well Pain Scale: 0-10 Numeric Is Patient Pain Free? Yes No Yes left lower leg -Description Aching -Intensity 5 -Duration (hours) Acute -Pain Behavior Withdrawal from Touch -Pain Aggravating Factors Exercise/ Activity -Alleviating Factors/Interventions Medication -Effectiveness of Alleviating Factor/ Minimally Intervention effective WC - Visit Discharge Discharge Condition Stable Stable Stable Ambulatory Status Ambulatory,Cane Ambulatory,Cane Ambulatory,Cane Transportation Private Auto Private Auto Private Auto Medication Reconcilliation completed & No No No provided to patient/care provider Clinical Summary of Care Provided Yes Yes Yes Notes: Pt Refused tubigrip today 11/22/23 15:32 [facility] Nurse 3 #2 RT 2ND TOE -Ulcer Cleansing -Other Dressing -Primary Dressing Covered/Secured with Dry Gauze, Secured with Tape #1 LLE CLUSTER -Ulcer Cleansing -Primary Dressing Applied NonAdherent Contact Layer -Other Dressing santyl -Primary Dressing Covered/Secured with Dry Gauze,Dry Gauze & Roll Gauze,Secured with Tape Left -Tubular Bandage Double Layer -Size of Tubigrip Used Size D -Size D ($) 2 Treatment Response Procedure Tolerated Well Pain Scale: 0-10 Numeric Is Patient Pain Free? Yes left lower leg -Description -Intensity -Duration (hours) -Pain Behavior -Pain Aggravating Factors -Alleviating Factors/Interventions -Effectiveness of Alleviating Factor/ Intervention WC - Visit Discharge Discharge Condition Stable Ambulatory Status Ambulatory,Cane Transportation Private Auto Medication Reconcilliation completed & No provided to patient/care provider Clinical Summary of Care Provided Yes Notes: Charges/Coding Procedures Integumentary [id number]: [id number] Edith subq tissue 20 sq cm/< (60578 X 5) Assessment/Plan Assessment/Plan (1) Leg ulcer, left: CODE(S): L97.929 - Non-pressure chronic ulcer of unspecified part of left lower leg with unspecified severity QUALIFIERS: Non-pressure ulcer stage: with fat layer exposed Qualified Code(s): L97.922 - Non-pressure chronic ulcer of unspecified part of left lower leg with fat layer exposed (2) Chronic venous insufficiency: CODE(S): I87.2 - Venous insufficiency (chronic) (peripheral) (3) Contact dermatitis: CODE(S): L25.9 - Unspecified contact dermatitis, unspecified cause QUALIFIERS: Contact dermatitis type: irritant Contact dermatitis trigger: other chemical product Qualified Code(s): L24.5 - Irritant contact dermatitis due to other chemical products (4) Left leg swelling: CODE(S): M79.89 - Other specified soft tissue disorders (5) Gastroesophageal reflux disease: CODE(S): K21.9 - Gastro-esophageal reflux disease without esophagitis (6) Hyperlipidemia: CODE(S): E78.5 - Hyperlipidemia, unspecified (7) Tobacco abuse: CODE(S): Z72.0 - Tobacco use (8) Tobacco abuse counseling: CODE(S): Z71.6 - Tobacco abuse counseling (9) Hypertension: CODE(S): I10 - Essential (primary) hypertension (10) Psoriasis of scalp: CODE(S): L40.9 - Psoriasis, unspecified (11) Osteoarthritis of knees, bilateral: CODE(S): M17.0 - Bilateral primary osteoarthritis of knee (12) Prediabetes: CODE(S): R73.03 - Prediabetes (13) History of tonsillectomy: CODE(S): Z90.89 - Acquired absence of other organs PLAN: Plan This is an 78-year-old female who presented with an ulceration of the left pretibial surface and lateral calf of approximately 1 year duration. It had failed to heal appropriately. She had been previously treated for suspected cellulitis with a course of oral doxycycline. The ulceration demonstrates a large amount of bioburden and nonviable tissue, which is somewhat resistant to removal by debridement. As result, we are to continue the use of collagenase Santyl topically with Adaptic to the ulceration. The patient has been instructed in the appropriate means of application. She has been provided a prescription for collagenase Santyl, which has been obtained. The patient has been advised to discontinue her smoking habit. Optimization of glycemic control and nutrition has been recommended. Erythema remains over a good portion of the left gaiter area, though appears to be slightly less prominent and less clearly demarcated superiorly and inferiorly. This this has been thought to be a contact dermatitis, though consideration of the cellulitis prompted a swab culture, the results of which have indicated the presence of Proteus mirabilis, Staphylococcus aureus, Enterococcus faecalis, and Pseudomonas aeruginosa. In accordance with the sensitivity results, the patient has been placed on Levaquin 500 milligrams p.o. daily for a total of 10 days. The patient's response will be monitored. Hydrocortisone 1% ointment will be discontinued. The patient has discontinued the use of Telfa and Vaseline, which she had been using previously. The patient has been advised to elevate her left lower extremity as much as possible, even during daytime hours. Elevation is to be to heart level, or higher. A Tubigrip of 20 to 30 mmHg has been provided to the patient for daily use. It appears as though the patient has been somewhat noncompliant in the use of Tubigrip's for compression. There is also a question regarding compliance with leg elevation. With regard to the dry eschar on the dorsum of the right second toe, the patient has been advised to maintain a dry gauze dressing, and to avoid friction or pressure from ill-fitted footwear. We are to monitor this site on a serial basis. The patient is to return in 1 week for reevaluation. Total time: 26 minutes
--- NOTE | 2023-11-25 09:07 | WC ---
PHOTO LLE 11/22/23
--- NOTE | 2023-11-25 09:08 | WC ---
PHOTO 11/22/23 ERIKA
== END 2023-11-23 23:59 | disposition home or self-care (01) ==
LOC: WC 14:00
PROVIDERS: PCP Family Medicine; Referring Provider Family Medicine; Visit Provider Surgery
DX: L97.922 Non-pressure chronic ulcer of unspecified part of left lower leg with fat layer exposed (principal); M17.0 Bilateral primary osteoarthritis of knee; L24.5 Irritant contact dermatitis due to other chemical products; L40.9 Psoriasis, unspecified; F41.9 Anxiety disorder, unspecified; Z72.0 Tobacco use; Z71.6 Tobacco abuse counseling; I87.2 Venous insufficiency (chronic) (peripheral); R73.03 Prediabetes; I10 Essential (primary) hypertension; E78.5 Hyperlipidemia, unspecified; K21.9 Gastro-esophageal reflux disease without esophagitis; Z90.89 Acquired absence of other organs
CPT/HCPCS: 11042; 11045; 87070; 87075; 87077; 87186; 87205; 99204; G0463

== ENCOUNTER 2023-12-13 14:45 | Outpatient (RCR) | payer MEDICARE, OTHER, SELFPAY ==
[2023-11-24 00:08] VITALS: BP 138/54; PULSE 52; RESP 18; TEMP 36.5; BMI 24.3
[2023-11-29 14:21] VITALS: BP 111/61; PULSE 59; RESP 18; TEMP 36.6; BMI 24.3
--- NOTE | 2023-11-29 15:05 | LES_PTH ---
PATIENT: KIERSTEN MUNIZ LOC: U#:[id number] AGE/SX: 78/F ROOM: RE12/13/[address]: Dr. Derrek Lorenzana MD : 1945 BED: DIS: 12/24/2023 SPEC #: [id number] RECD: 11/29/23 15:57 STATUS: SHANIQUE REKvng #: [id number] PAN: 11/29/23 15:[address]: Derrek Lorenzana DEPT: SURGICAL PATHOLOGY RECD BY: Jen Hermosillo ENTERED: 11/30/23 07:20 SP TYPE: Lesion OTHR DR: Dr. Jaciel López MD Tissues: A - Skin of leg, NOS B - Skin of leg, NOS Procedures: Special Stain Group I Surgery Specimen Level IV GMS Stain (control) HEADER OPERATION: A- Left lateral leg, B- Left medial leg PRE-OP DIAGNOSIS: A- Left lateral leg, B- Left medial leg TISSUE SUBMITTED: A- Left lateral leg, B- Left medial leg MICROSCOPIC DIAGNOSIS A. Left lateral leg, punch biopsy: Focal ulceration, acute and chronic inflammation and granulation tissue reaction. Reactive epithelial changes. Negative for malignancy. See comment. B. Left medial leg, punch biopsy: Focal ulceration, acute and chronic inflammation and granulation tissue reaction. Reactive epithelial changes. Negative for malignancy. See comment. JOSH/ 12/01/2023 COMMENT A, B. Special stain for fungi is negative for organisms; matched control is appropriate. Clinical correlation and appropriate follow up are necessary. Case has been reviewed in consultation with Dr. Hull who concurs with the above diagnosis. IDC:AM MICROSCOPIC DESCRIPTION Slides are reviewed. GROSS DESCRIPTION A. Received in fixative is one container labeled with the patient's name and designated Left lateral leg biopsy. The specimen consists of a punch biopsy of vera-white skin measuring 0.5cm in diameter and 0.4cm in length. The specimen is inked, bisected and submitted entirely in one cassette. B. Received in fixative is one container labeled with the patient's name and designated Left medial leg biopsy. The specimen consists of a punch biopsy of vera-white skin measuring 0.5 cm in diameter and 0.5 cm in length. The specimen is inked, bisected and submitted entirely in one cassette. Wil 11/30/2023 TC:2 CPT:53276i7,[id number]
--- NOTE | 2023-11-30 08:37 | WC ---
PHOTO LLE 11/29/23
--- NOTE | 2023-11-30 08:37 | WC ---
PHOTO 11/29/23 ERIKA
--- NOTE | 2023-11-30 12:56 | PCM.WC.HP ---
History of Present Illness Date of Service: 11/29/23 Chief Complaint: Left pretibial ulceration with severe contact dermatitis History of Wound: This is an 78 year-old female who presented with an ulceration of the left pretibial surface which had been present for approximately 1 year. The ulceration had failed to heal. The patient was evaluated at [facility] on October 20, 2023, at which time supriya-ulcer erythema, thought to be cellulitis, prompted treatment with a course of oral antibiotics. The patient has completed a course of oral doxycycline. Most recently, at the advice of her primary care physician, the patient had been using Vaseline liberally on the ulceration and surrounding skin, and covering with Telfa. The patient is a smoker, and has been instructed as to the hazards of smoking, and advised to cease the habit. She currently smokes one-half a pack of cigarettes per day, and has done so for many years. The patient is of relatively normal body habitus, with a BMI of 24.3. She is active, and sleeps on a flat mattress at night. She does relate a history of mild left lower extremity swelling. She denies a history of thrombophlebitis. [facility], [facility] Medical History Chronic venous insufficiency Left leg swelling Contact dermatitis Leg ulcer, left Prediabetes Osteoarthritis of knees, bilateral Psoriasis of scalp Hypertension Tobacco abuse counseling Tobacco abuse Hyperlipidemia Gastroesophageal reflux disease Home Medications ?Medication ?Instructions ?Recorded ?Last Taken ?Type atorvastatin 40 mg tablet 40 mg PO DAILY 11/01/23 Unknown History chlorthalidone 25 mg tablet 25 mg PO DAILY 11/01/23 Unknown History coenzyme Q10 100 mg capsule (Co 100 mg PO DAILY 11/01/23 Unknown History Q-10) folic acid 0.8 mg capsule 800 mcg PO DAILY 11/01/23 Unknown History metoprolol succinate 100 mg 100 mg PO DAILY 11/01/23 Unknown History tablet,extended release 24 hr metoprolol succinate 200 mg 200 mg PO DAILY 11/01/23 Unknown History tablet,extended release 24 hr omeprazole 10 mg capsule,delayed 10 mg PO DAILY 11/01/23 Unknown History release Allergy/AdvReac Type Severity Reaction Status Date / Time amlodipine Allergy Rash Verified 11/01/23 16:02 hydrochlorothiazide Allergy Other Verified 11/01/23 16:02 olmesartan Allergy Other Verified 11/01/23 16:02 simvastatin Allergy Other Verified 11/01/23 16:02 Sulfa (Sulfonamide Allergy Other Verified 11/01/23 16:02 Antibiotics) Surgical History History of tonsillectomy Social History Smoking Status: Current every day smoker Vital Signs Vital Signs Vital Signs: 11/29/23 14:21 Temperature 97.9 F Temperature Source Temporal Pulse Rate 59 L Respiratory Rate 18 Blood Pressure 111/61 Blood Pressure Mean 77 Blood Pressure Source Monitor Blood Pressure Position Semi-Fowlers Blood Pressure Location Right Arm Oxygen Delivery Method Room Air Weight Weight: 142 lb Body Mass Index (BMI) 24.3 Physical Exam Const alert, oriented x3, no apparent distress, average body habitus, no limitations and well nourished General Appearance: cooperative, comfortable, well kempt and well developed Orientation / Consciousness: awake, oriented to person, oriented to place and oriented to time HEENT normocephalic and head/scalp atraumatic Head and Scalp: normal to inspection, normocephalic and atraumatic External Ear: external ears normal Eyes EOMs intact bilaterally General Eye: normal appearance of both eyes Neck full ROM Resp normal respiratory effort, normal air movement, no retractions, no use of accessory muscles and clear to auscultation bilaterally Effort and Inspection: able to speak in complete sentences Cardio regular rate, regular rhythm, S1 normal heart sound and S2 normal heart sound Extremity no calf tenderness General Extremity: Negative for clubbing or cyanosis Skin Wound Narrative: A clustered ulceration is noted on the left pretibial surface and lateral calf. It extends down into the subcutaneous tissue. There is a moderate amount of bioburden and nonviable tissue, which is yellow in appearance. Dimensions of the ulceration are documented elsewhere. It appears as though the ulceration has increased in size, despite all measures to date. A large portion of the left gaiter area remains bright red and erythematous in appearance, though noticeably improved. The erythema had been sharply demarcated superiorly and inferiorly in linear fashion to suggest that it was a contact dermatitis rather than cellulitic in nature. The erythema has receded somewhat, particularly superiorly. A swab culture was obtained for aerobic and anaerobic bacterial growth last week, the results of which were positive for Proteus mirabilis, Staphylococcus aureus, Enterococcus faecalis, and Pseudomonas aeruginosa. In accordance with the sensitivity results, the patient was placed on Levaquin 500 milligrams p.o. daily for a total of 10 days, which is nearly completed. No significant swelling is noted in the patient's left lower extremity. There is also a dry eschar on the dorsal aspect of the patient's right second toe. This is without signs of infection or cellulitis. The patient indicates that this was caused by either her dog, who stepped on her foot, or an ill-fitting shoe. She has been repeatedly advised to be sure that her shoes are properly fitted. We are to continue to monitor this right second toe eschar, without any specific management recommendations, other than offloading. Neuro oriented x3, CN's II-XII intact bilaterally, moves all extremities and no focal motor deficits Sensorium / Orientation: awake, alert, oriented to person, oriented to place and oriented to time Psych Appearance: grossly normal and appropriate Attitude: calm Activity / Motor Behavior: appropriate eye contact Speech: normal speech Mood & Affect: euthymic mood Thought Process: normal thought process Thought Content: normal thought content Attention / Concentration: attention grossly intact Debridement Note Debridement Note Debridement Free Text: Punch biopsies were performed today, because of the atypical appearance of the patient's wound, and the fact that it has appeared to enlarge despite all current measures. 2 separate sites were biopsied, each at the periphery of the ulceration, to include a portion of the ulcer as well as adjacent relatively normal skin. In each case, the site was prepped with alcohol. Lidocaine 1% with epinephrine was injected subcutaneously to provide an adequate level of local anesthesia. A 5 mm punch biopsy was then performed using sterile technique. Once the punch biopsy have been performed, a scissors was used to dissect the specimen from the underlying subcutaneous tissue. This maneuver was performed at 2 separate sites, to enhance the likelihood of the positive diagnosis. In each case, the specimen was placed in formalin, to be sent to the pathology department for histological examination. Minimal bleeding was encountered, and manual pressure was sufficient. No debridement was completed: No debridement was completed today Post-Debridement Measurements and Additional Note: Post-Debridement Measurements/Treatment WC - Nurse 1 - General Ulcer Assessment Start: 11/29/23 14:19 Freq: Status: Active Protocol: WC.LOWEXT Activity Type Activity Date Activity User E-sign Co-sign Detail Recorded Client Recorded Date Recorded By Document 11/29/23 14:21 MARY 11/29/23 14:30 11/29/23 14:21 - Today's Visit Information Type of service Follow-up Visit (Physician/COLORING CHECKER ) Arrival Mode Ambulatory,Cane Accompanied by FRIEND Patient Identification Verified (Name & Yes ) Height and Weight Body Mass Index (BMI) 24.3 BMI Classification Normal Vital Signs Temperature (97.8 F-99.1 F) 97.9 F Temperature Source Temporal Pulse Rate (60-100) 59 L Pulse Location Monitor Respiratory Rate (12-18) 18 Respiratory rate source Observation Oxygen Delivery Method Room Air Blood Pressure (90/60-120/80) 111/61 Blood Pressure Mean 77 Source Monitor Position Semi-Fowlers Blood Pressure Location Right Arm History Since Last Visit- (Skip if this is Patient's initial visit) Have you changed medications since your No last visit? Any new allergies or adverse reactions No Had a fall/change in ADL's that may No increase risk of falls Signs or symptoms of abuse and/or No neglect since last visit Have you been in the hospital since your No last visit? Has dressing in place as prescribed Yes Has compression in place as prescribed Yes Has offloadiing in place as prescribed N/A Experienced any changes in pain level or No management Left Footwear Regular Shoe Right Footwear Regular Shoe Pain Scale: 0-10 Numeric Is Patient Pain Free? Yes - Nurse 1 - General Ulcer Measurement Start: 11/29/23 14:19 Freq: Status: Active Protocol: Activity Type Activity Date Activity User E-sign Co-sign Detail Recorded Client Recorded Date Recorded By Document 11/29/23 14:21 MARY 11/29/23 14:30 11/29/23 14:21 Wound Center Nurse 1 #2 RT 2ND TOE -Current Size (cm) - Length 0.1 -Current Size (cm) - Width 0.1 -Current Size (cm) - Depth 0.1 -Total Square Cm 0.01 -Date of Last Picture (Recall this 11/29/23 field) -Epithelialization Small 1-33% -Exudate Amt Small -Exudate Type Serosanguineous -Wound Margin Distinct, Outline Attached -Granulation Amt Small (1-33%) -Granulation Quality [place] -Necrosis Amt Large (67-100%) -Necrotic Tissue Type Adherent Slough -Texture (Supriya-wound Skin Appearance) Assessed -Moisture (Supriya-wound Skin Appearance) Assessed -Color (Supriya-wound Skin Appearance) Assessed -Temperature (Supriya-wound Skin No Abnormality Appearance) (Pt Warm) -Tenderness on Palpation (Supriya-wound No Skin Appearance) -Ulcer Cleansing Rinsed/ Irrigated with Saline -Foul Odor after Cleansing No -Anesthetic Used 4% Lidocaine Solution -Wound Comment(s) SCABBED #1 LLE CLUSTER -Current Size (cm) - Length 9.7 -Current Size (cm) - Width 10 -Current Size (cm) - Depth 0.1 -Total Square Cm 97.0 -Epithelialization Small 1-33% -Exudate Amt Small -Exudate Type Serosanguineous -Wound Margin Distinct, Outline Attached -Granulation Amt Small (1-33%) -Granulation Quality [place] -Necrosis Amt Large (67-100%) -Necrotic Tissue Type Adherent Slough -Texture (Supriya-wound Skin Appearance) Assessed -Moisture (Supriya-wound Skin Appearance) Assessed -Color (Supriya-wound Skin Appearance) Assessed, Erythema -Temperature (Supriya-wound Skin No Abnormality Appearance) (Pt Warm) -Tenderness on Palpation (Supriya-wound No Skin Appearance) -Ulcer Cleansing Rinsed/ Irrigated with Saline -Foul Odor after Cleansing No -Anesthetic Used 4% Lidocaine Solution WC - Nurse 2 - General Ulcer CM Notes Start: 11/29/23 14:19 Freq: Status: Active Protocol: Activity Type Activity Date Activity User E-sign Co-sign Detail Recorded Client Recorded Date Recorded By Document 11/29/23 15:18 DS 1 11/29/23 15:20 DS Edit Result 11/29/23 15:18 DS (1) [id number] 11/29/23 16:13 DS (1) #2 RT 2ND TOE - Time 15:00 => - Correct Patient Yes => - Correct Side, Site, Position Yes => - Correct Procedure Yes => - Procedure Performed Yes => - Type of Procedure Biopsy => - Clinical Debridement Subcutaneous => - Tissue Removed Subcutaneous => - Post Debridement (cm) - Length 9.5 => - Post Debridement (cm) - Width 15.5 => - Post Debridement (cm) - Depth 0.1 => - Total Square (Post) (cm) 147.25 => - Area of Debridement (cm) - Length 9.5 => - Area of Debridement (cm) - Width 15.5 => - Total Square (Area) (cm) 147.25 => - Tunneling No => - Undermining/Tunneling No => - Circular Undermining No => - Wound/Ulcer Outcome Not Healed => - Bleeding Controlled with Pressure => - Treatment Response Procedure => Tolerated Well => - Debridement - Subq, 20sq cm No => - I&D / Paring / Biopsy Punch bx skin ( => includes simple => close, if done), => single lesion => #1 LLE CLUSTER - Time => 15:00 - Correct Patient => Yes - Correct Side, Site, Position => Yes - Correct Procedure => Yes - Procedure Performed => Yes - Type of Procedure => Biopsy - Clinical Debridement => Subcutaneous - Tissue Removed => Subcutaneous - Post Debridement (cm) - Length => 9.5 - Post Debridement (cm) - Width => 15.5 - Post Debridement (cm) - Depth => 0.1 - Total Square (Post) (cm) => 147.25 - Area of Debridement (cm) - Length => 9.5 - Area of Debridement (cm) - Width => 15.5 - Total Square (Area) (cm) => 147.25 - Tunneling => No - Undermining/Tunneling => No - Circular Undermining => No - Wound/Ulcer Outcome => Not Healed - Bleeding Controlled with => Pressure - Treatment Response => Procedure => Tolerated Well - Debridement - Subq, 1st 20sq cm => No - I&D / Paring / Biopsy => Punch bx skin ( => includes simple => close, if done), => single lesion 11/29/23 15:18 Wound Center Nurse 2 -Time 15:00 -Correct Patient Yes -Correct Side, Site, Position Yes -Correct Procedure Yes -Procedure Performed Yes -Type of Procedure Biopsy -Clinical Debridement Subcutaneous -Tissue Removed Subcutaneous -Post Debridement (cm) - Length 9.5 -Post Debridement (cm) - Width 15.5 -Post Debridement (cm) - Depth 0.1 -Total Square (Post) (cm) 147.25 -Area of Debridement (cm) - Length 9.5 -Area of Debridement (cm) - Width 15.5 -Total Square (Area) (cm) 147.25 -Tunneling No -Undermining/Tunneling No -Circular Undermining No -Wound/Ulcer Outcome Not Healed -Bleeding Controlled with Pressure -Treatment Response Procedure Tolerated Well -Debridement - Subq, 1st 20sq cm No -I&D / Paring / Biopsy Punch bx skin ( includes simple close, if done ), single lesion Pain Scale: 0-10 Numeric Is Patient Pain Free? Yes - Nurse 3 - General Ulcer D/C NN Start: 11/29/23 14:19 Freq: Status: Active Protocol: Activity Type Activity Date Activity User E-sign Co-sign Detail Recorded Client Recorded Date Recorded By Document 11/29/23 16:28 RB [email or web address] 11/29/23 16:28 RB 11/29/23 16:28 Wound Care Center Nurse 3 #1 LLE CLUSTER -Other Dressing santyl/abd pad -Primary Dressing Covered/Secured with Dry Gauze,Dry Gauze & Roll Gauze,Secured with Tape Left -Tubular Bandage Double Layer -Size of Tubigrip Used Size D -Size D ($) 2 Treatment Response Procedure Tolerated Well Pain Scale: 0-10 Numeric Is Patient Pain Free? Yes WC - Visit Discharge Discharge Condition Stable Ambulatory Status Ambulatory, Walker Transportation Private Auto Medication Reconcilliation completed & No provided to patient/care provider Clinical Summary of Care Provided Yes Charges/Coding Multi Select Codes Visit Charges Office Visit/Consults: 98497 OV L3 Est 20min Integumentary Integumentary CPT Codes: 13735 Punch bx skin single lesion Assessment/Plan Assessment/Plan (1) Leg ulcer, left: CODE(S): L97.929 - Non-pressure chronic ulcer of unspecified part of left lower leg with unspecified severity QUALIFIERS: Non-pressure ulcer stage: with fat layer exposed Qualified Code(s): L97.922 - Non-pressure chronic ulcer of unspecified part of left lower leg with fat layer exposed (2) Chronic venous insufficiency: CODE(S): I87.2 - Venous insufficiency (chronic) (peripheral) (3) Contact dermatitis: CODE(S): L25.9 - Unspecified contact dermatitis, unspecified cause QUALIFIERS: Contact dermatitis type: irritant Contact dermatitis trigger: other chemical product Qualified Code(s): L24.5 - Irritant contact dermatitis due to other chemical products (4) Left leg swelling: CODE(S): M79.89 - Other specified soft tissue disorders (5) Gastroesophageal reflux disease: CODE(S): K21.9 - Gastro-esophageal reflux disease without esophagitis (6) Hyperlipidemia: CODE(S): E78.5 - Hyperlipidemia, unspecified (7) Tobacco abuse: CODE(S): Z72.0 - Tobacco use (8) Tobacco abuse counseling: CODE(S): Z71.6 - Tobacco abuse counseling (9) Hypertension: CODE(S): I10 - Essential (primary) hypertension (10) Psoriasis of scalp: CODE(S): L40.9 - Psoriasis, unspecified (11) Osteoarthritis of knees, bilateral: CODE(S): M17.0 - Bilateral primary osteoarthritis of knee (12) Prediabetes: CODE(S): R73.03 - Prediabetes (13) History of tonsillectomy: CODE(S): Z90.89 - Acquired absence of other organs PLAN: Plan This is an 78-year-old female who presented with an ulceration of the left pretibial surface and lateral calf of approximately 1 year duration. It had failed to heal appropriately. She had been previously treated for suspected cellulitis with a course of oral doxycycline. The ulceration demonstrates a large amount of bioburden and nonviable tissue, which is somewhat resistant to removal by debridement. As result, we are to continue the use of collagenase Santyl topically with Adaptic to the ulceration. The patient has been instructed in the appropriate means of application. She has been provided a prescription for collagenase Santyl, which has been obtained. The patient has been advised to discontinue her smoking habit. Optimization of glycemic control and nutrition has been recommended. Erythema remains over a good portion of the left gaiter area, though appears to be less prominent and less clearly demarcated superiorly. This had been thought to be a contact dermatitis, though consideration of the cellulitis prompted a swab culture, the results of which indicated the presence of Proteus mirabilis, Staphylococcus aureus, Enterococcus faecalis, and Pseudomonas aeruginosa. In accordance with the sensitivity results, the patient was placed on Levaquin 500 milligrams p.o. daily for a total of 10 days, which is nearly completed. The patient's response will be monitored. The patient has been advised to elevate her left lower extremity as much as possible, even during daytime hours. Elevation is to be to heart level, or higher. A Tubigrip of 20 to 30 mmHg has been provided to the patient for daily use. It appears as though the patient has been somewhat noncompliant in the use of Tubigrip's for compression. There is also a question regarding compliance with leg elevation. With regard to the dry eschar on the dorsum of the right second toe, the patient has been advised to maintain a dry gauze dressing, and to avoid friction or pressure from ill-fitted footwear. We are to monitor this site on a serial basis. The patient's ulceration has a very atypical appearance, and has not responded to recent measures. In fact, it appears as though there has been expansion of the ulceration in recent weeks. This has elicited a suspicion that the wound may be atypical in nature, and may represent an etiology such as pyoderma gangrenosum. As result, we have foregone debridement at today's visit. Biopsies have been performed at the ulcer margins, the results of which will be awaited. The patient is to return in 2 weeks for reevaluation. Total time: 28 minutes
[2023-12-13 14:52] VITALS: BP 138/69; PULSE 53; RESP 18; TEMP 35.7; BMI 24.3
--- NOTE | 2023-12-13 17:55 | PCM.WC.HP ---
History of Present Illness Date of Service: 12/13/23 Chief Complaint: Left pretibial ulceration with severe contact dermatitis History of Wound: This is an 78 year-old female who presented with an ulceration of the left pretibial surface which had been present for approximately 1 year. The ulceration had failed to heal. The patient was evaluated at [facility] on October 20, 2023, at which time jef-ulcer erythema, thought to be cellulitis, prompted treatment with a course of oral antibiotics. The patient has completed a course of oral doxycycline. Most recently, at the advice of her primary care physician, the patient had been using Vaseline liberally on the ulceration and surrounding skin, and covering with Telfa. The patient is a smoker, and has been instructed as to the hazards of smoking, and advised to discontinue the habit. She currently smokes one-half a pack of cigarettes per day, and has done so for many years. The patient is of relatively normal body habitus, with a BMI of 24.3. She is active, and sleeps on a flat mattress at night. She does relate a history of mild left lower extremity swelling. She denies a history of thrombophlebitis. [facility] Medical History Chronic venous insufficiency Left leg swelling Contact dermatitis Leg ulcer, left Prediabetes Osteoarthritis of knees, bilateral Psoriasis of scalp Hypertension Tobacco abuse counseling Tobacco abuse Hyperlipidemia Gastroesophageal reflux disease Home Medications ?Medication ?Instructions ?Recorded ?Last Taken ?Type atorvastatin 40 mg tablet 40 mg PO DAILY 11/01/23 Unknown History chlorthalidone 25 mg tablet 25 mg PO DAILY 11/01/23 Unknown History coenzyme Q10 100 mg capsule (Co 100 mg PO DAILY 11/01/23 Unknown History Q-10) folic acid 0.8 mg capsule 800 mcg PO DAILY 11/01/23 Unknown History metoprolol succinate 100 mg 100 mg PO DAILY 11/01/23 Unknown History tablet,extended release 24 hr metoprolol succinate 200 mg 200 mg PO DAILY 11/01/23 Unknown History tablet,extended release 24 hr omeprazole 10 mg capsule,delayed 10 mg PO DAILY 11/01/23 Unknown History release collagenase clostridium histo. 250 1 applic topical DAILY Necrotic 12/01/23 Unknown Rx unit/gram topical ointment (Santyl) wound #90 grams Allergy/AdvReac Type Severity Reaction Status Date / Time amlodipine Allergy Rash Verified 11/01/23 16:02 hydrochlorothiazide Allergy Other Verified 11/01/23 16:02 olmesartan Allergy Other Verified 11/01/23 16:02 simvastatin Allergy Other Verified 11/01/23 16:02 Sulfa (Sulfonamide Allergy Other Verified 11/01/23 16:02 Antibiotics) Surgical History History of tonsillectomy Social History Smoking Status: Current every day smoker Vital Signs Vital Signs Vital Signs: 12/13/23 14:52 Temperature 96.3 F L Temperature Source Temporal Pulse Rate 53 L Respiratory Rate 18 Blood Pressure 138/69 H Blood Pressure Mean 92 Blood Pressure Source Monitor Blood Pressure Position Sitting Blood Pressure Location Left Arm Oxygen Delivery Method Room Air Weight Weight: 142 lb Body Mass Index (BMI) 24.3 Physical Exam Const alert, oriented x3, no apparent distress, average body habitus, no limitations and well nourished General Appearance: cooperative, comfortable, well kempt and well developed Orientation / Consciousness: awake, oriented to person, oriented to place and oriented to time HEENT normocephalic and head/scalp atraumatic Head and Scalp: normal to inspection, normocephalic and atraumatic External Ear: external ears normal Eyes EOMs intact bilaterally General Eye: normal appearance of both eyes Neck full ROM Resp normal respiratory effort, normal air movement, no retractions, no use of accessory muscles and clear to auscultation bilaterally Effort and Inspection: able to speak in complete sentences Cardio regular rate, regular rhythm, S1 normal heart sound and S2 normal heart sound Extremity no calf tenderness General Extremity: Negative for clubbing or cyanosis Skin Wound Narrative: A clustered ulceration is noted on the left pretibial surface and lateral calf. It extends down into the subcutaneous tissue. There is a moderate amount of bioburden and nonviable tissue, which is yellow in appearance. Anteriorly, there appears to be improvement, with diminishing amounts of bioburden topically. Laterally, there remains a large amount of bioburden, with some buds of granulation tissue noted centrally. Dimensions of the ulceration are documented elsewhere. It appears as though the ulceration has increased in size, despite all measures to date. The erythema of the surrounding skin continues to diminish. The erythema is now very localized in the area about the ulceration. Formerly, the erythema involved most of the gaiter area. The erythema had been sharply demarcated superiorly and inferiorly in linear fashion to suggest that it was a contact dermatitis rather than cellulitic in nature. A swab culture was obtained for aerobic and anaerobic bacterial growth several weeks ago, the results of which were positive for Proteus mirabilis, Staphylococcus aureus, Enterococcus faecalis, and Pseudomonas aeruginosa. In accordance with the sensitivity results, the patient was placed on Levaquin 500 milligrams p.o. daily for a total of 10 days, which has been completed. No significant swelling is noted in the patient's left lower extremity. The dry eschar on the dorsal aspect of the patient's right second toe has now sloughed, revealing the ulceration at this site to be completely healed and epithelialized. Neuro oriented x3, CN's II-XII intact bilaterally, moves all extremities, no focal motor deficits and no sensory deficits noted Sensorium / Orientation: awake, alert, oriented to person, oriented to place and oriented to time Psych Appearance: grossly normal and appropriate Attitude: calm Activity / Motor Behavior: appropriate eye contact Speech: normal speech Mood & Affect: euthymic mood Thought Process: normal thought process Thought Content: normal thought content Attention / Concentration: attention grossly intact Debridement Note Debridement Note No debridement was completed: No debridement was completed today Post-Debridement Measurements and Additional Note: Post-Debridement Measurements/Treatment - Nurse 1 - General Ulcer Assessment Start: 11/29/23 14:19 Freq: Status: Active Protocol: WC.[place]IR[place] Activity Type Activity Date Activity User E-sign Co-sign Detail Recorded Client Recorded Date Recorded By Document 11/29/23 14:21 KW 11/29/23 14:30 KW Document 12/13/23 14:52 [id number] 12/13/23 15:02 KW 11/29/23 12/13/23 14:21 14:52 - Today's Visit Information Type of service Follow-up Visit Follow-up Visit (Physician/STUNTMAN (Physician/STUNTMAN ) ) Arrival Mode Ambulatory,Cane Ambulatory,Cane Accompanied by FRIEND Patient Identification Verified (Name & Yes Yes ) Height and Weight Body Mass Index (BMI) 24.3 24.3 BMI Classification Normal Normal Vital Signs Temperature (97.8 F-99.1 F) 97.9 F 96.3 F L Temperature Source Temporal Temporal Pulse Rate (60-100) 59 L 53 L Pulse Location Monitor Monitor Respiratory Rate (12-18) 18 18 Respiratory rate source Observation Ausculation Oxygen Delivery Method Room Air Room Air Blood Pressure (90/60-120/80) 111/61 138/69 H Blood Pressure Mean 77 92 Source Monitor Monitor Position Semi-Fowlers Sitting Blood Pressure Location Right Arm Left Arm History Since Last Visit- (Skip if this is Patient's initial visit) Have you changed medications since your No No last visit? Any new allergies or adverse reactions No No Had a fall/change in ADL's that may No No increase risk of falls Signs or symptoms of abuse and/or No No neglect since last visit Have you been in the hospital since your No No last visit? Has dressing in place as prescribed Yes Yes Has compression in place as prescribed Yes Yes Has offloadiing in place as prescribed N/A N/A Experienced any changes in pain level or No No management Left Footwear Regular Shoe Regular Shoe Right Footwear Regular Shoe Regular Shoe Pain Scale: 0-10 Numeric Is Patient Pain Free? Yes Yes WC - Nurse 1 - General Ulcer Measurement Start: 11/29/23 14:19 Freq: Status: Active Protocol: Activity Type Activity Date Activity User E-sign Co-sign Detail Recorded Client Recorded Date Recorded By Document 11/29/23 14:21 KW kl 11/29/23 14:30 KW Document 12/13/23 14:52 KW [id number] 12/13/23 15:02 KW 11/29/23 12/13/23 14:21 14:52 Wound Center Nurse 1 #2 RT 2ND TOE -Current Size (cm) - Length 0.1 -Current Size (cm) - Width 0.1 -Current Size (cm) - Depth 0.1 -Total Square Cm 0.01 -Date of Last Picture (Recall this 11/29/23 field) -Epithelialization Small 1-33% -Exudate Amt Small -Exudate Type Serosanguineous -Wound Margin Distinct, Outline Attached -Granulation Amt Small (1-33%) -Granulation Quality [place] -Necrosis Amt Large (67-100%) -Necrotic Tissue Type Adherent Slough -Texture (Jef-wound Skin Appearance) Assessed -Moisture (Jef-wound Skin Appearance) Assessed -Color (Jef-wound Skin Appearance) Assessed -Temperature (Jef-wound Skin No Abnormality Appearance) (Pt Warm) -Tenderness on Palpation (Jef-wound No Skin Appearance) -Ulcer Cleansing Rinsed/ Irrigated with Saline -Foul Odor after Cleansing No -Anesthetic Used 4% Lidocaine Solution -Wound Comment(s) SCABBED #1 LLE CLUSTER -Current Size (cm) - Length 9.7 9.5 -Current Size (cm) - Width 10 15 -Current Size (cm) - Depth 0.1 0.1 -Total Square Cm 97.0 142.5 -Epithelialization Small 1-33% -Exudate Amt Small Medium -Exudate Type Serosanguineous Serosanguineous -Wound Margin Distinct, Distinct, Outline Outline Attached Attached -Granulation Amt Small (1-33%) Medium (34-66%) -Granulation Quality [place] Red -Necrosis Amt Large (67-100%) Medium (34-66%) -Necrotic Tissue Type Adherent Slough Adherent Slough -Texture (Jef-wound Skin Appearance) Assessed Assessed -Moisture (Jef-wound Skin Appearance) Assessed Assessed -Color (Jef-wound Skin Appearance) Assessed, Assessed, Erythema Erythema -Temperature (Jef-wound Skin No Abnormality No Abnormality Appearance) (Pt Warm) (Pt Warm) -Tenderness on Palpation (Jef-wound No No Skin Appearance) -Ulcer Cleansing Rinsed/ Rinsed/ Irrigated with Irrigated with Saline Saline -Foul Odor after Cleansing No -Anesthetic Used 4% Lidocaine Solution WC - Nurse 2 - General Ulcer CM Notes Start: 11/29/23 14:19 Freq: Status: Active Protocol: Activity Type Activity Date Activity User E-sign Co-sign Detail Recorded Client Recorded Date Recorded By Document 11/29/23 15:18 DS 1 11/29/23 15:20 DS Edit Result 11/29/23 15:18 DS (1) [id number] 11/29/23 16:13 DS Document 12/13/23 15:29 JF [id number] 12/13/23 15:33 JF (1) #2 RT 2ND TOE - Time 15:00 => - Correct Patient Yes => - Correct Side, Site, Position Yes => - Correct Procedure Yes => - Procedure Performed Yes => - Type of Procedure Biopsy => - Clinical Debridement Subcutaneous => - Tissue Removed Subcutaneous => - Post Debridement (cm) - Length 9.5 => - Post Debridement (cm) - Width 15.5 => - Post Debridement (cm) - Depth 0.1 => - Total Square (Post) (cm) 147.25 => - Area of Debridement (cm) - Length 9.5 => - Area of Debridement (cm) - Width 15.5 => - Total Square (Area) (cm) 147.25 => - Tunneling No => - Undermining/Tunneling No => - Circular Undermining No => - Wound/Ulcer Outcome Not Healed => - Bleeding Controlled with Pressure => - Treatment Response Procedure => Tolerated Well => - Debridement - Subq, 1st 20sq cm No => - I&D / Paring / Biopsy Punch bx skin ( => includes simple => close, if done), => single lesion => #1 LLE CLUSTER - Time => 15:00 - Correct Patient => Yes - Correct Side, Site, Position => Yes - Correct Procedure => Yes - Procedure Performed => Yes - Type of Procedure => Biopsy - Clinical Debridement => Subcutaneous - Tissue Removed => Subcutaneous - Post Debridement (cm) - Length => 9.5 - Post Debridement (cm) - Width => 15.5 - Post Debridement (cm) - Depth => 0.1 - Total Square (Post) (cm) => 147.25 - Area of Debridement (cm) - Length => 9.5 - Area of Debridement (cm) - Width => 15.5 - Total Square (Area) (cm) => 147.25 - Tunneling => No - Undermining/Tunneling => No - Circular Undermining => No - Wound/Ulcer Outcome => Not Healed - Bleeding Controlled with => Pressure - Treatment Response => Procedure => Tolerated Well - Debridement - Subq, 1st 20sq cm => No - I&D / Paring / Biopsy => Punch bx skin ( => includes simple => close, if done), => single lesion 11/29/23 12/13/23 15:18 15:29 Wound Center Nurse 2 #1 LLE CLUSTER -Time 15:00 15:30 -Correct Patient Yes No -Correct Side, Site, Position Yes No -Correct Procedure Yes No -Procedure Performed Yes No -Type of Procedure Biopsy -Clinical Debridement Subcutaneous -Tissue Removed Subcutaneous -Post Debridement (cm) - Length 9.5 9.5 -Post Debridement (cm) - Width 15.5 10.0 -Post Debridement (cm) - Depth 0.1 0.1 -Total Square (Post) (cm) 147.25 95.00 -Area of Debridement (cm) - Length 9.5 9.5 -Area of Debridement (cm) - Width 15.5 10.0 -Total Square (Area) (cm) 147.25 95.00 -Tunneling No No -Undermining/Tunneling No No -Circular Undermining No No -Wound/Ulcer Outcome Not Healed Not Healed -Ulcer Cleansing Rinsed/ Irrigated with Saline -Foul Odor after Cleansing No -Bioengineered Tissue No -Bleeding Controlled with Pressure Pressure -Treatment Response Procedure Procedure Tolerated Well Tolerated Well -Offloading No -Debridement - Subq, 1st 20sq cm No No -I&D / Paring / Biopsy Punch bx skin ( includes simple close, if done ), single lesion Pain Scale: 0-10 Numeric Is Patient Pain Free? Yes Yes - Nurse 3 - General Ulcer D/C NN Start: 11/29/23 14:19 Freq: Status: Active Protocol: Activity Type Activity Date Activity User E-sign Co-sign Detail Recorded Client Recorded Date Recorded By Document 11/29/23 16:28 RB [email or web address] 11/29/23 16:28 RB Document 12/13/23 15:50 KW [id number] 12/13/23 15:51 KW 11/29/23 12/13/23 16:28 15:50 Wound Care Center Nurse 3 #1 LLE CLUSTER -Primary Dressing Applied NonAdherent Contact Layer -Other Dressing santyl/abd pad santyl -Primary Dressing Covered/Secured with Dry Gauze,Dry Dry Gauze & Gauze & Roll Roll Gauze, Gauze,Secured Secured with with Tape Tape Left -Tubular Bandage Double Layer Single Layer -Size of Tubigrip Used Size D Size D -Size D ($) 2 1 Treatment Response Procedure Tolerated Well Pain Scale: 0-10 Numeric Is Patient Pain Free? Yes Yes - Visit Discharge Discharge Condition Stable Ambulatory Status Ambulatory, Walker Transportation Private Auto Medication Reconcilliation completed & No provided to patient/care provider Clinical Summary of Care Provided Yes Charges/Coding Visit Charges Office Visits / Consults: [id number] OV L4 Est 30min Assessment/Plan Assessment/Plan (1) Leg ulcer, left: CODE(S): L97.929 - Non-pressure chronic ulcer of unspecified part of left lower leg with unspecified severity QUALIFIERS: Non-pressure ulcer stage: with fat layer exposed Qualified Code(s): L97.922 - Non-pressure chronic ulcer of unspecified part of left lower leg with fat layer exposed (2) Chronic venous insufficiency: CODE(S): I87.2 - Venous insufficiency (chronic) (peripheral) (3) Contact dermatitis: CODE(S): L25.9 - Unspecified contact dermatitis, unspecified cause QUALIFIERS: Contact dermatitis type: irritant Contact dermatitis trigger: other chemical product Qualified Code(s): L24.5 - Irritant contact dermatitis due to other chemical products (4) Left leg swelling: CODE(S): M79.89 - Other specified soft tissue disorders (5) Gastroesophageal reflux disease: CODE(S): K21.9 - Gastro-esophageal reflux disease without esophagitis (6) Hyperlipidemia: CODE(S): E78.5 - Hyperlipidemia, unspecified (7) Tobacco abuse: CODE(S): Z72.0 - Tobacco use (8) Tobacco abuse counseling: CODE(S): Z71.6 - Tobacco abuse counseling (9) Hypertension: CODE(S): I10 - Essential (primary) hypertension (10) Psoriasis of scalp: CODE(S): L40.9 - Psoriasis, unspecified (11) Osteoarthritis of knees, bilateral: CODE(S): M17.0 - Bilateral primary osteoarthritis of knee (12) Prediabetes: CODE(S): R73.03 - Prediabetes (13) History of tonsillectomy: CODE(S): Z90.89 - Acquired absence of other organs PLAN: Plan This is an 78-year-old female who presented with an ulceration of the left pretibial surface and lateral calf of approximately 1 year duration. It had failed to heal appropriately. She had been previously treated for suspected cellulitis with a course of oral doxycycline. The ulceration demonstrates a large amount of bioburden and nonviable tissue, which is somewhat resistant to removal by debridement. As result, we are to continue the use of collagenase Santyl and Adaptic topically. The patient has been instructed in the appropriate means of application. She has been provided a prescription for collagenase Santyl, which has been obtained. The patient has been advised to discontinue her smoking habit. Optimization of glycemic control and nutrition has been recommended. Erythema involving the left gaiter area has diminished significantly, and now remains only in proximity to the ulceration. This had been thought to be a contact dermatitis, though consideration of the cellulitis prompted a swab culture, the results of which indicated the presence of Proteus mirabilis, Staphylococcus aureus, Enterococcus faecalis, and Pseudomonas aeruginosa. In accordance with the sensitivity results, the patient was placed on Levaquin 500 milligrams p.o. daily for a total of 10 days, which has been completed. The patient appears to have responded to the antibiotic regimen, with significant reduction in the erythema. The patient has been advised to elevate her left lower extremity as much as possible, even during daytime hours. Elevation is to be to heart level, or higher. A Tubigrip of 20 to 30 mmHg has been provided to the patient for daily use. It appears as though the patient has been somewhat noncompliant in the use of Tubigrip's for compression. There is also a question regarding compliance with leg elevation. The ulceration on the right second toe now appears to be completely healed. The patient has been advised to assure that footwear are fitted appropriately. The patient's ulceration has a very atypical appearance, and has demonstrated an atypical response to standard wound therapy. It has not responded to recent measures. In fact, it appears as though there has been expansion of the ulceration in recent weeks. This has elicited a suspicion that the wound may be atypical in nature, and may represent an etiology such as pyoderma gangrenosum. As result, we have foregone recent debridements, in an effort to determine whether improvement is noted in its absence. Biopsies were performed at the patient's previous visit, the results of which have demonstrated reactive epithelial changes, acute and chronic inflammation, and no evidence of malignancy. The results have not been indicative of alternative etiologies, such as pyoderma gangrenosum. A discussion has been undertaken with the Director of Pathology, Dr. Hull, to determine what measures might be helpful in determining the presence of such alternative diagnoses. Because the patient's ulceration appears to be enlarging, the suggestion has been put forward to perform a punch biopsy several millimeters beyond the ulcer margin, which could give clues as to the etiologic cause of the patient's ulceration. This option has been discussed with the patient, and has met with her displeasure. A lengthy discussion has been undertaken with the patient as to the difficulties in diagnosis such causes as pyoderma gangrenosum, as it is largely a diagnosis of exclusion. As per the patient's preference, we have deferred biopsies today. We are to continue current management with collagenase Santyl and Adaptic. We are to obtain a battery of diagnostic tests, which will include a venous duplex ultrasound examination, a noninvasive lower extremity arterial study, and laboratory studies which will include a CBC, comprehensive metabolic profile, HbA1C, and ESR. The patient is to return in 1 week for reevaluation. Total time: 38 minutes
== END 2023-12-24 23:59 | disposition home or self-care (01) ==
LOC: WC 14:45
PROVIDERS: PCP Family Medicine; Referring Provider Family Medicine; Visit Provider Surgery
DX: L97.922 Non-pressure chronic ulcer of unspecified part of left lower leg with fat layer exposed (principal); K21.9 Gastro-esophageal reflux disease without esophagitis; R73.03 Prediabetes; L40.9 Psoriasis, unspecified; E78.5 Hyperlipidemia, unspecified; Z71.6 Tobacco abuse counseling; M17.0 Bilateral primary osteoarthritis of knee; I10 Essential (primary) hypertension; I87.2 Venous insufficiency (chronic) (peripheral); M79.89 Other specified soft tissue disorders; Z90.89 Acquired absence of other organs; L24.5 Irritant contact dermatitis due to other chemical products; F17.210 Nicotine dependence, cigarettes, uncomplicated
CPT/HCPCS: 11104; 88305; 88312; 99214; G0463

== ENCOUNTER → 2023-12-27 | Outpatient (CLI) | payer MEDICARE, OTHER, SELFPAY ==
[2023-12-27 15:34] LABS: Hematocrit 35.6 % (37-47); Hemoglobin 10.8 g/dL (12.0-15.0); Mean Corp Hgb Conc 30.3 g/dL (32-36); Mean Corpuscular Hgb 29.3 pg (27.0-32.0); Mean Corpuscular Volume 96.7 fL (81-99); Mean Platelet Vol. 11.9 fl (6.2-12.0); Platelet Count 253 K/mm3 (150-450); RBC Distribution Width CV 13.5 % (11.6-14.6); RBC Distribution Width SD 48.1 fl (35.1-43.9); Red Blood Count 3.68 M/mm3 (4.2-5.4); White Blood Count 12.5 K/mm3 (4.4-11.0)
[2023-12-27 15:35] LABS: Erythrocyte Sedimentation Rate 12 mm/hr (0-30)
[2023-12-27 15:59] LABS: Hemoglobin A1c 5.3 % (3.8-5.6)
[2023-12-27 16:07] LABS: ALB/GLOB Ratio 0.8 RATIO (0.9-2.4); AST(SGOT) 16 U/L (15-37); Alanine Aminotransfer ALT/SGPT 11 U/L (13-56); Albumin, Serum 3.1 g/dL (3.2-5.0); Alkaline Phosphatase 108 U/L (45-117); Anion Gap 7 (5-15); BUN 28 mg/dL (7-18); BUN/Creat Ratio 24.3 RATIO (10-20); Calcium,Total 9.5 mg/dL (8.5-10.1); Chloride 108 mmol/L (98-107); Creatinine, Serum 1.15 mg/dL (0.55-1.02); EST Glomerular Filtration Rate 48 mL/min (>60); Est Glom Filt Rate - Afr Amer 58 mL/min (>60); Globulin 3.9 g/dL (2.2-4.2); Glucose 116 mg/dL (74-106); Potassium 4.5 mmol/L (3.5-5.1); Sodium Level 138 mmol/L (136-145)
[2023-12-29 07:09] LABS: Prealbumin 23 mg/dL (9-32)
== END | disposition home or self-care (01) ==
LOC: MTLAB 13:07
PROVIDERS: PCP Family Medicine; Referring Provider Surgery; Visit Provider Surgery
DX: L97.222 Non-pressure chronic ulcer of left calf with fat layer exposed (principal); L98.492 Non-pressure chronic ulcer of skin of other sites with fat layer exposed; R73.03 Prediabetes; K21.9 Gastro-esophageal reflux disease without esophagitis; E78.5 Hyperlipidemia, unspecified; Z71.6 Tobacco abuse counseling; I10 Essential (primary) hypertension; L40.9 Psoriasis, unspecified; Z72.0 Tobacco use; M17.0 Bilateral primary osteoarthritis of knee; I87.2 Venous insufficiency (chronic) (peripheral); L24.5 Irritant contact dermatitis due to other chemical products; M79.89 Other specified soft tissue disorders; Z90.89 Acquired absence of other organs
CPT/HCPCS: 36415; 80053; 83036; 84134; 85027; 85652

== ENCOUNTER 2024-01-10 14:15 | Outpatient (RCR) | payer MEDICARE, OTHER, SELFPAY ==
[2023-12-25 00:12] VITALS: BP 138/54; PULSE 52; RESP 18; TEMP 36.5; BMI 24.3
[2023-12-27 14:06] VITALS: BP 125/70; PULSE 51; RESP 18; TEMP 35.6; BMI 24.3
--- NOTE | 2023-12-28 10:05 | WC ---
PHOTO 12/27/23 ERIKA ZAMARRIPA
--- NOTE | 2023-12-28 18:58 | PCM.WC.HP ---
History of Present Illness Date of Service: 12/27/23 Chief Complaint: Left pretibial ulceration with severe contact dermatitis History of Wound: This is an 78 year-old female who presented with an ulceration of the left pretibial surface which had been present for approximately 1 year. The ulceration had failed to heal. The patient was evaluated at [facility] on October 20, 2023, at which time supriya-ulcer erythema, thought to be cellulitis, prompted treatment with a course of oral antibiotics. The patient has completed a course of oral doxycycline. Most recently, at the advice of her primary care physician, the patient had been using Vaseline liberally on the ulceration and surrounding skin, and covering with Telfa. The patient is a smoker, and has been instructed as to the hazards of smoking, and advised to discontinue the habit. She currently smokes one-half a pack of cigarettes per day, and has done so for many years. The patient is of relatively normal body habitus, with a BMI of 24.3. She is active, and sleeps on a flat mattress at night. She does relate a history of mild left lower extremity swelling. She denies a history of thrombophlebitis. FOR[facility], [facility] Medical History Chronic venous insufficiency Left leg swelling Contact dermatitis Leg ulcer, left Prediabetes Osteoarthritis of knees, bilateral Psoriasis of scalp Hypertension Tobacco abuse counseling Tobacco abuse Hyperlipidemia Gastroesophageal reflux disease Home Medications ?Medication ?Instructions ?Recorded ?Last Taken ?Type atorvastatin 40 mg tablet 40 mg PO DAILY 11/01/23 Unknown History chlorthalidone 25 mg tablet 25 mg PO DAILY 11/01/23 Unknown History coenzyme Q10 100 mg capsule (Co 100 mg PO DAILY 11/01/23 Unknown History Q-10) folic acid 0.8 mg capsule 800 mcg PO DAILY 11/01/23 Unknown History metoprolol succinate 100 mg 100 mg PO DAILY 11/01/23 Unknown History tablet,extended release 24 hr metoprolol succinate 200 mg 200 mg PO DAILY 11/01/23 Unknown History tablet,extended release 24 hr omeprazole 10 mg capsule,delayed 10 mg PO DAILY 11/01/23 Unknown History release collagenase clostridium histo. 250 1 applic topical DAILY Necrotic 12/01/23 Unknown Rx unit/gram topical ointment (Santyl) wound #90 grams Allergy/AdvReac Type Severity Reaction Status Date / Time amlodipine Allergy Rash Verified 11/01/23 16:02 hydrochlorothiazide Allergy Other Verified 11/01/23 16:02 olmesartan Allergy Other Verified 11/01/23 16:02 simvastatin Allergy Other Verified 11/01/23 16:02 Sulfa (Sulfonamide Allergy Other Verified 11/01/23 16:02 Antibiotics) Surgical History History of tonsillectomy Social History Smoking Status: Current every day smoker Vital Signs Vital Signs Vital Signs: Weight Weight: 142 lb Body Mass Index (BMI) 24.3 Physical Exam Const alert, oriented x3, no apparent distress, average body habitus, no limitations and well nourished General Appearance: cooperative, comfortable, well kempt and well developed Orientation / Consciousness: awake, oriented to person, oriented to place and oriented to time Exam Limitations: no limitations HEENT normocephalic and head/scalp atraumatic Head and Scalp: normal to inspection, normocephalic and atraumatic Face and Sinus: normal facial exam Nose: external nose normal External Ear: external ears normal Eyes EOMs intact bilaterally General Eye: normal appearance of both eyes Neck full ROM Resp normal respiratory effort, normal air movement, no retractions, no use of accessory muscles and clear to auscultation bilaterally Effort and Inspection: able to speak in complete sentences Cardio regular rate, regular rhythm, S1 normal heart sound and S2 normal heart sound Extremity no calf tenderness General Extremity: Negative for clubbing or cyanosis Skin Wound Narrative: A clustered ulceration is noted on the left pretibial surface and lateral calf. It extends down into the subcutaneous tissue. There is a moderate amount of bioburden and nonviable tissue, which is yellow in appearance. There appears to be improvement, with increasing areas of pink, healthy granulation tissue. The amount of bioburden and nonviable tissue appears to be diminishing. Dimensions of the ulceration are documented elsewhere. There are clear areas of epithelialization, signifying improvement in the status of the ulceration. The erythema of the surrounding skin continues to diminish. The erythema in the area of the ulceration continues to diminish. No significant swelling is noted in the patient's left lower extremity. The dry eschar on the dorsal aspect of the patient's right second toe has now totally healed and epithelialized. Neuro oriented x3, CN's II-XII intact bilaterally, moves all extremities, no focal motor deficits and no sensory deficits noted Sensorium / Orientation: awake, alert, oriented to person, oriented to place and oriented to time Psych Appearance: grossly normal and appropriate Attitude: calm Activity / Motor Behavior: appropriate eye contact Speech: normal speech Mood & Affect: euthymic mood Thought Process: normal thought process Thought Content: normal thought content Attention / Concentration: attention grossly intact Debridement Note Debridement Note No debridement was completed: No debridement was completed today (In areas of apparent healing, where the epithelium is intact, some scaly and sloughing material was gently removed using a 5 mm curette. However, the epidermis was not breached in these areas.) Post-Debridement Measurements and Additional Note: Post-Debridement Measurements/Treatment WC - Nurse 1 - General Ulcer Assessment Start: 12/27/23 14:05 Freq: Status: Active Protocol: PATRICIO.ANNABEL Activity Type Activity Date Activity User E-sign Co-sign Detail Recorded Client Recorded Date Recorded By Document 12/27/23 14:06 SHAHLA [id number] 12/27/23 14:15 SHAHLA 12/27/23 14:06 WC - Today's Visit Information Type of service Follow-up Visit (Physician/[employer] ) Arrival Mode Ambulatory Height and Weight Body Mass Index (BMI) 24.3 BMI Classification Normal Vital Signs Temperature (97.8 F-99.1 F) 96.1 F L Temperature Source Temporal Pulse Rate (60-100) 51 L Pulse Location Monitor Respiratory Rate (12-18) 18 Respiratory rate source Observation Blood Pressure (90/60-120/80) 125/70 H Blood Pressure Mean 88 Source Monitor Position Semi-Fowlers Blood Pressure Location Left Arm History Since Last Visit- (Skip if this is Patient's initial visit) Have you changed medications since your No last visit? Any new allergies or adverse reactions No Had a fall/change in ADL's that may No increase risk of falls Signs or symptoms of abuse and/or No neglect since last visit Have you been in the hospital since your No last visit? Has dressing in place as prescribed Yes Has compression in place as prescribed Yes Has offloadiing in place as prescribed No Experienced any changes in pain level or No management Pain Scale: 0-10 Numeric Is Patient Pain Free? Yes - Nurse 1 - General Ulcer Measurement Start: 12/27/23 14:05 Freq: Status: Active Protocol: Activity Type Activity Date Activity User E-sign Co-sign Detail Recorded Client Recorded Date Recorded By Document 12/27/23 14:06 RB [id number] 12/27/23 14:15 RB 12/27/23 14:06 Wound Center Nurse 1 #1 LLE CLUSTER -Combined with other wound No -Current Size (cm) - Length 9.5 -Current Size (cm) - Width 10.8 -Current Size (cm) - Depth 0.1 -Total Square Cm 102.60 -Photo Taken Yes -Tunneling No -Undermining/Tunneling No -Circular Undermining No -Exudate Amt Large -Exudate Type Serosanguineous -Wound Margin Distinct, Outline Attached -Granulation Amt Medium (34-66%) -Granulation Quality [place] -Slough/Fibrin Yes -Necrosis Amt Medium (34-66%) -Necrotic Tissue Type Adherent Slough -Structure Exposed N/A -Texture (Supriya-wound Skin Appearance) Assessed -Moisture (Supriya-wound Skin Appearance) Assessed -Color (Supriya-wound Skin Appearance) Assessed -Temperature (Supriya-wound Skin No Abnormality Appearance) (Pt Warm) -Tenderness on Palpation (Supriya-wound No Skin Appearance) -Ulcer Cleansing Wound Cleanser -Foul Odor after Cleansing No -Anesthetic Used 5% Lidocaine Gel Lower Limb Edema Present Yes Left Calf (cm) 35 Left Ankle (cm) 24.2 WC - Nurse 2 - General Ulcer CM Notes Start: 12/27/23 14:05 Freq: Status: Active Protocol: Activity Type Activity Date Activity User E-sign Co-sign Detail Recorded Client Recorded Date Recorded By Document 12/27/23 14:23 DS [id number] 12/27/23 14:27 DS Edit Result 12/27/23 14:23 DS (1) [id number] 12/27/23 14:30 DS Edit Result 12/27/23 14:23 DS (2) [id number] 12/27/23 14:31 DS (1) #1 LLE CLUSTER - Post Debridement (cm) - Length => 9.5 - Post Debridement (cm) - Width => 10.0 - Post Debridement (cm) - Depth => 0.1 - Total Square (Post) (cm) => 95.00 - Area of Debridement (cm) - Length => 9.5 - Area of Debridement (cm) - Width => 10.0 - Total Square (Area) (cm) => 95.00 (2) #1 LLE CLUSTER - Correct Patient Yes => No - Correct Side, Site, Position Yes => No - Correct Procedure Yes => No - Procedure Performed Yes => No - Type of Procedure Debridement => - Debridement - Subq, 1st 20sq cm Yes => No 12/27/23 14:23 Wound Center Nurse 2 #1 LLE CLUSTER -Time 14:23 -Correct Patient No -Correct Side, Site, Position No -Correct Procedure No -Procedure Performed No -Clinical Debridement Subcutaneous -Tissue Removed Subcutaneous -Post Debridement (cm) - Length 9.5 -Post Debridement (cm) - Width 10.0 -Post Debridement (cm) - Depth 0.1 -Total Square (Post) (cm) 95.00 -Area of Debridement (cm) - Length 9.5 -Area of Debridement (cm) - Width 10.0 -Total Square (Area) (cm) 95.00 -Tunneling No -Undermining/Tunneling No -Circular Undermining No -Wound/Ulcer Outcome Not Healed -Ulcer Cleansing Rinsed/ Irrigated with Saline -Bioengineered Tissue No -Bleeding Controlled with Pressure -Treatment Response Procedure Tolerated Well -Debridement - Subq, 1st 20sq cm No Pain Scale: 0-10 Numeric Is Patient Pain Free? No left lower leg -Description Throbbing, Aching -Intensity 6 -Duration (hours) Chronic -Pain Behavior Irritability -Pain Aggravating Factors Debridement -Alleviating Factors/Interventions Medication -Comments cetacaine spray used - Nurse 3 - General Ulcer D/C NN Start: 12/27/23 14:05 Freq: Status: Active Protocol: Activity Type Activity Date Activity User E-sign Co-sign Detail Recorded Client Recorded Date Recorded By Document 12/27/23 14:41 ANA [id number] 12/27/23 14:42 ANA 12/27/23 14:41 Wound Care Center Nurse 3 #1 LLE CLUSTER -Ulcer Cleansing Rinsed/ Irrigated with Saline -Foul Odor after Cleansing No -Primary Dressing Applied NonAdherent Contact Layer -Other Dressing santyl -Primary Dressing Covered/Secured with Dry Gauze & Roll Gauze, Secured with Tape Left -Tubular Bandage Double Layer -Size of Tubigrip Used Size D -Size D ($) 2 Pain Scale: 0-10 Numeric Is Patient Pain Free? Yes WC - Visit Discharge Discharge Condition Stable Ambulatory Status Ambulatory Transportation Private Auto Accompanied by friend Lab / Micro Data Attestation: I reviewed the patient's lab results. Labs: Laboratory Tests 12/27/23 13:11 WBC 12.5 H Hgb 10.8 L Hct 35.6 L ESR 12 Chloride 108 H BUN 28 H Creatinine 1.15 H Glucose 116 H Hemoglobin A1c 5.3 Calcium 9.5 Total Bilirubin 0.20 AST 16 ALT 11 L Alkaline Phosphatase 108 Total Protein 7.0 Albumin 3.1 L Charges/Coding Visit Charges Office Visits / Consults: [id number] OV L3 Est 20min Assessment/Plan Assessment/Plan (1) Leg ulcer, left: CODE(S): L97.929 - Non-pressure chronic ulcer of unspecified part of left lower leg with unspecified severity QUALIFIERS: Non-pressure ulcer stage: with fat layer exposed Qualified Code(s): L97.922 - Non-pressure chronic ulcer of unspecified part of left lower leg with fat layer exposed (2) Chronic venous insufficiency: CODE(S): I87.2 - Venous insufficiency (chronic) (peripheral) (3) Contact dermatitis: CODE(S): L25.9 - Unspecified contact dermatitis, unspecified cause QUALIFIERS: Contact dermatitis type: irritant Contact dermatitis trigger: other chemical product Qualified Code(s): L24.5 - Irritant contact dermatitis due to other chemical products (4) Left leg swelling: CODE(S): M79.89 - Other specified soft tissue disorders (5) Gastroesophageal reflux disease: CODE(S): K21.9 - Gastro-esophageal reflux disease without esophagitis (6) Hyperlipidemia: CODE(S): E78.5 - Hyperlipidemia, unspecified (7) Tobacco abuse: CODE(S): Z72.0 - Tobacco use (8) Tobacco abuse counseling: CODE(S): Z71.6 - Tobacco abuse counseling (9) Hypertension: CODE(S): I10 - Essential (primary) hypertension (10) Psoriasis of scalp: CODE(S): L40.9 - Psoriasis, unspecified (11) Osteoarthritis of knees, bilateral: CODE(S): M17.0 - Bilateral primary osteoarthritis of knee (12) Prediabetes: CODE(S): R73.03 - Prediabetes (13) History of tonsillectomy: CODE(S): Z90.89 - Acquired absence of other organs PLAN: Plan This is an 78-year-old female who presented with an ulceration of the left pretibial surface and lateral calf of approximately 1 year duration. It had failed to heal appropriately. She had been previously treated for suspected cellulitis with a course of oral doxycycline. The ulceration demonstrated a large amount of bioburden and nonviable tissue, which was somewhat resistant to removal by debridement. We are to continue the use of collagenase Santyl and Adaptic topically. The patient has been instructed in the appropriate means of application. She has been provided a prescription for collagenase Santyl, which has been obtained. The patient has been advised to discontinue her smoking habit. Optimization of glycemic control and nutrition has been recommended. Erythema involving the left gaiter area has diminished significantly, and is now nearly totally resolved. This had been thought to be a contact dermatitis, though consideration of the cellulitis prompted a swab culture, the results of which indicated the presence of Proteus mirabilis, Staphylococcus aureus, Enterococcus faecalis, and Pseudomonas aeruginosa. In accordance with the sensitivity results, the patient was placed on Levaquin 500 milligrams p.o. daily for a total of 10 days, which has been completed. The patient appears to have responded to the antibiotic regimen, with significant reduction in the erythema. The patient has been advised to elevate her left lower extremity as much as possible, even during daytime hours. Elevation is to be to heart level, or higher. A Tubigrip of 20 to 30 mmHg has been provided to the patient for daily use. The patient's ulceration has a very atypical appearance, and has demonstrated an atypical response to standard wound therapy. It has not responded to the typical measures, which have included serial debridements. In fact, it appears as though there has been expansion of the ulceration with standard therapy, such as serial debridements. This has elicited a suspicion that the wound may be atypical in nature, and may represent an etiology such as pyoderma gangrenosum. As result, we have foregone recent debridements, in an effort to determine whether improvement is noted in its absence. Biopsies were performed at recent visit, the results of which have demonstrated reactive epithelial changes, acute and chronic inflammation, and no evidence of malignancy. The results have not been indicative of suspected alternative etiologies, such as pyoderma gangrenosum. A discussion has been undertaken with the Director of Pathology, Dr. Hull, to determine what measures might be helpful in determining the presence of such alternative diagnoses. Because the patient's ulceration appeared to be enlarging, the suggestion was put forward to perform a punch biopsy several millimeters beyond the ulcer margin, which could give clues as to the etiologic cause of the patient's ulceration. This option has been discussed with the patient, and has met with her displeasure. A lengthy discussion has been undertaken with the patient as to the difficulties in diagnosing such causes as pyoderma gangrenosum, as it is largely a diagnosis of exclusion. As per the patient's preference, we have deferred biopsies again today. We are to continue current management with collagenase Santyl and Adaptic. We have obtained a battery of diagnostic laboratory tests, results of which are included herein. There are no significant abnormalities noted. The patient is scheduled to undergo a venous duplex examination and a noninvasive lower extremity arterial study in the near future. She is to return in 1 week for reevaluation. Mild improvement has been noted with regard to the left lower extremity ulceration. The ulceration of the patient's right second toe remains completely healed. Total time: 28 minutes
[2024-01-03 14:19] VITALS: RESP 16; BMI 24.3
--- NOTE | 2024-01-03 17:38 | PCM.WC.HP ---
History of Present Illness Date of Service: 01/03/24 Chief Complaint: Left pretibial ulceration with severe contact dermatitis History of Wound: This is an 78 year-old female who presented with an ulceration of the left pretibial surface which had been present for approximately 1 year. The ulceration had failed to heal. The patient was evaluated at [facility] on October 20, 2023, at which time jef-ulcer erythema, thought to be cellulitis, prompted treatment with a course of oral antibiotics. The patient has completed a course of oral doxycycline. Most recently, at the advice of her primary care physician, the patient had been using Vaseline liberally on the ulceration and surrounding skin, and covering with Telfa. The patient is a smoker, and has been instructed as to the hazards of smoking, and advised to discontinue the habit. She currently smokes one-half a pack of cigarettes per day, and has done so for many years. The patient is of relatively normal body habitus, with a BMI of 24.3. She is active, and sleeps on a flat mattress at night. She does relate a history of mild left lower extremity swelling. She denies a history of thrombophlebitis. [facility] Medical History Chronic venous insufficiency Left leg swelling Contact dermatitis Leg ulcer, left Prediabetes Osteoarthritis of knees, bilateral Psoriasis of scalp Hypertension Tobacco abuse counseling Tobacco abuse Hyperlipidemia Gastroesophageal reflux disease Home Medications ?Medication ?Instructions ?Recorded ?Last Taken ?Type atorvastatin 40 mg tablet 40 mg PO DAILY 11/01/23 Unknown History chlorthalidone 25 mg tablet 25 mg PO DAILY 11/01/23 Unknown History coenzyme Q10 100 mg capsule (Co 100 mg PO DAILY 11/01/23 Unknown History Q-10) folic acid 0.8 mg capsule 800 mcg PO DAILY 11/01/23 Unknown History metoprolol succinate 100 mg 100 mg PO DAILY 11/01/23 Unknown History tablet,extended release 24 hr metoprolol succinate 200 mg 200 mg PO DAILY 11/01/23 Unknown History tablet,extended release 24 hr omeprazole 10 mg capsule,delayed 10 mg PO DAILY 11/01/23 Unknown History release collagenase clostridium histo. 250 1 applic topical DAILY Necrotic 12/01/23 Unknown Rx unit/gram topical ointment (Santyl) wound #90 grams Allergy/AdvReac Type Severity Reaction Status Date / Time amlodipine Allergy Rash Verified 11/01/23 16:02 hydrochlorothiazide Allergy Other Verified 11/01/23 16:02 olmesartan Allergy Other Verified 11/01/23 16:02 simvastatin Allergy Other Verified 11/01/23 16:02 Sulfa (Sulfonamide Allergy Other Verified 11/01/23 16:02 Antibiotics) Surgical History History of tonsillectomy Social History Smoking Status: Current every day smoker Vital Signs Vital Signs Vital Signs: 01/03/24 14:19 Temperature Source Temporal Respiratory Rate 16 Blood Pressure Source Monitor Blood Pressure Position Sitting Blood Pressure Location Right Arm Oxygen Delivery Method Room Air Weight Weight: 142 lb Body Mass Index (BMI) 24.3 Debridement Note Debridement Note Post-Debridement Measurements and Additional Note: Post-Debridement Measurements/Treatment - Nurse 1 - General Ulcer Assessment Start: 12/27/23 14:05 Freq: Status: Active Protocol: RANJEET Activity Type Activity Date Activity User E-sign Co-sign Detail Recorded Client Recorded Date Recorded By Document 12/27/23 14:06 RB [id number] 12/27/23 14:15 RB Document 01/03/24 14:19 KW [id number] 01/03/24 14:28 KW 12/27/23 01/03/24 14:06 14:19 - Today's Visit Information Type of service Follow-up Visit Follow-up Visit (Physician/LABORATORY ANIMAL FACILITY SUPERVISOR (Physician/LABORATORY ANIMAL FACILITY SUPERVISOR ) ) Arrival Mode Ambulatory Ambulatory,Cane Accompanied by friend Patient Identification Verified (Name & Yes ) Height and Weight Body Mass Index (BMI) 24.3 24.3 BMI Classification Normal Normal Vital Signs Temperature (97.8 F-99.1 F) 96.1 F L Temperature Source Temporal Temporal Pulse Rate (60-100) 51 L Pulse Location Monitor Monitor Respiratory Rate (12-18) 18 16 Respiratory rate source Observation Observation Oxygen Delivery Method Room Air Blood Pressure (90/60-120/80) 125/70 H Blood Pressure Mean 88 Source Monitor Monitor Position Semi-Fowlers Sitting Blood Pressure Location Left Arm Right Arm History Since Last Visit- (Skip if this is Patient's initial visit) Have you changed medications since your No No last visit? Any new allergies or adverse reactions No No Had a fall/change in ADL's that may No No increase risk of falls Signs or symptoms of abuse and/or No No neglect since last visit Have you been in the hospital since your No No last visit? Has dressing in place as prescribed Yes Yes Has compression in place as prescribed Yes Yes Has offloadiing in place as prescribed No N/A Experienced any changes in pain level or No No management Left Footwear Regular Shoe Right Footwear Regular Shoe Pain Scale: 0-10 Numeric Is Patient Pain Free? Yes Yes WC - Nurse 1 - General Ulcer Measurement Start: 12/27/23 14:05 Freq: Status: Active Protocol: Activity Type Activity Date Activity User E-sign Co-sign Detail Recorded Client Recorded Date Recorded By Document 12/27/23 14:06 RB [id number] 12/27/23 14:15 RB Document 01/03/24 14:19 KW [id number] 01/03/24 14:28 KW 12/27/23 01/03/24 14:06 14:19 Wound Center Nurse 1 #1 LLE CLUSTER -Combined with other wound No -Current Size (cm) - Length 9.5 11.5 -Current Size (cm) - Width 10.8 15 -Current Size (cm) - Depth 0.1 0.1 -Total Square Cm 102.60 172.5 -Date of Last Picture (Recall this 01/03/24 field) -Photo Taken Yes -Tunneling No -Undermining/Tunneling No -Circular Undermining No -Exudate Amt Large Large -Exudate Type Serosanguineous Serosanguineous -Wound Margin Distinct, Distinct, Outline Outline Attached Attached -Granulation Amt Medium (34-66%) Large (67-100%) -Granulation Quality [place] Red -Slough/Fibrin Yes -Necrosis Amt Medium (34-66%) Medium (34-66%) -Necrotic Tissue Type Adherent Slough Adherent Slough -Structure Exposed N/A -Texture (Jef-wound Skin Appearance) Assessed Assessed -Moisture (Jef-wound Skin Appearance) Assessed Assessed -Color (Jef-wound Skin Appearance) Assessed Assessed, Erythema -Temperature (Jef-wound Skin No Abnormality No Abnormality Appearance) (Pt Warm) (Pt Warm) -Tenderness on Palpation (Jef-wound No No Skin Appearance) -Ulcer Cleansing Wound Cleanser Soap and Water -Foul Odor after Cleansing No No -Anesthetic Used 5% Lidocaine 4% Lidocaine Gel Solution Lower Limb Edema Present Yes Left Calf (cm) 35 Left Ankle (cm) 24.2 WC - Nurse 2 - General Ulcer CM Notes Start: 12/27/23 14:05 Freq: Status: Active Protocol: Activity Type Activity Date Activity User E-sign Co-sign Detail Recorded Client Recorded Date Recorded By Document 12/27/23 14:23 DS [id number] 12/27/23 14:27 DS Edit Result 12/27/23 14:23 DS (1) [id number] 12/27/23 14:30 DS Edit Result 12/27/23 14:23 DS (2) [id number] 12/27/23 14:31 DS Document 01/03/24 14:43 DS [id number] 01/03/24 14:55 DS (1) #1 LLE CLUSTER - Post Debridement (cm) - Length => 9.5 - Post Debridement (cm) - Width => 10.0 - Post Debridement (cm) - Depth => 0.1 - Total Square (Post) (cm) => 95.00 - Area of Debridement (cm) - Length => 9.5 - Area of Debridement (cm) - Width => 10.0 - Total Square (Area) (cm) => 95.00 (2) #1 LLE CLUSTER - Correct Patient Yes => No - Correct Side, Site, Position Yes => No - Correct Procedure Yes => No - Procedure Performed Yes => No - Type of Procedure Debridement => - Debridement - Subq, 1st 20sq cm Yes => No 12/27/23 01/03/24 14:23 14:43 Wound Center Nurse 2 #1 LLE CLUSTER -Time 14:23 14:43 -Correct Patient No Yes -Correct Side, Site, Position No Yes -Correct Procedure No Yes -Procedure Performed No Yes -Type of Procedure Debridement -Clinical Debridement Subcutaneous Subcutaneous -Tissue Removed Subcutaneous Subcutaneous -Post Debridement (cm) - Length 9.5 8.0 -Post Debridement (cm) - Width 10.0 11.0 -Post Debridement (cm) - Depth 0.1 0.1 -Total Square (Post) (cm) 95.00 88.00 -Area of Debridement (cm) - Length 9.5 8.0 -Area of Debridement (cm) - Width 10.0 11.0 -Total Square (Area) (cm) 95.00 88.00 -Tunneling No No -Undermining/Tunneling No No -Circular Undermining No No -Wound/Ulcer Outcome Not Healed Not Healed -Ulcer Cleansing Rinsed/ Rinsed/ Irrigated with Irrigated with Saline Saline -Bioengineered Tissue No -Bleeding Controlled with Pressure Pressure -Treatment Response Procedure Procedure Tolerated Well Tolerated Well -Debridement - Subq, 1st 20sq cm No Yes -Debridement, SubQ, ea addt'l 20sq cm 4 or part thereof Pain Scale: 0-10 Numeric Is Patient Pain Free? No No left lower leg -Description Throbbing, Sharp,Throbbing Aching -Intensity 6 6 -Duration (hours) Chronic Chronic -Pain Behavior Irritability Moaning -Pain Aggravating Factors Debridement -Alleviating Factors/Interventions Medication Medication -Comments cetacaine spray cetecaine used - Nurse 3 - General Ulcer D/C NN Start: 12/27/23 14:05 Freq: Status: Active Protocol: Activity Type Activity Date Activity User E-sign Co-sign Detail Recorded Client Recorded Date Recorded By Document 12/27/23 14:41 [id number] 12/27/23 14:42 Document 01/03/24 15:10 [id number] 01/03/24 15:11 12/27/23 01/03/24 14:41 15:10 Wound Care Center Nurse 3 #1 LLE CLUSTER -Ulcer Cleansing Rinsed/ Rinsed/ Irrigated with Irrigated with Saline Saline -Foul Odor after Cleansing No -Primary Dressing Applied NonAdherent Aquacel AG 4x4 Contact Layer -Other Dressing santyl -Primary Dressing Covered/Secured with Dry Gauze & Dry Gauze & Roll Gauze, Roll Gauze, Secured with Secured with Tape Tape -Aquacel AG 4x4 1 Left -Tubular Bandage Double Layer Double Layer -Size of Tubigrip Used Size D Size D -Size D ($) 2 2 Pain Scale: 0-10 Numeric Is Patient Pain Free? Yes Yes - Visit Discharge Discharge Condition Stable Stable Ambulatory Status Ambulatory Ambulatory Transportation Private Auto Private Auto Accompanied by friend Medication Reconcilliation completed & No provided to patient/care provider Clinical Summary of Care Provided Yes
--- NOTE | 2024-01-04 08:36 | WC ---
PHOTO 01/03/24 ERIKA
--- NOTE | 2024-01-04 18:12 | PCM.WC.HP ---
History of Present Illness Date of Service: 01/03/24 Chief Complaint: Left pretibial ulceration with severe contact dermatitis History of Wound: This is an 78 year-old female who presented with an ulceration of the left pretibial surface which had been present for approximately 1 year. The ulceration had failed to heal. The patient was evaluated at [facility] on October 20, 2023, at which time supriya-ulcer erythema, thought to be cellulitis, prompted treatment with a course of oral antibiotics. The patient has completed a course of oral doxycycline. Most recently, at the advice of her primary care physician, the patient had been using Vaseline liberally on the ulceration and surrounding skin, and covering with Telfa. The patient is a smoker, and has been instructed as to the hazards of smoking, and advised to discontinue the habit. She currently smokes one-half a pack of cigarettes per day, and has done so for many years. The patient is of relatively normal body habitus, with a BMI of 24.3. She is active, and sleeps on a flat mattress at night. She does relate a history of mild left lower extremity swelling. She denies a history of thrombophlebitis. [facility] Medical History (Updated 01/04/24 @ 18:[address] Derrek Lorenzana MD) Non-pressure chronic ulcer of left calf with fat layer exposed Chronic venous insufficiency Left leg swelling Contact dermatitis Leg ulcer, left Prediabetes Osteoarthritis of knees, bilateral Psoriasis of scalp Hypertension Tobacco abuse counseling Tobacco abuse Hyperlipidemia Gastroesophageal reflux disease Home Medications ?Medication ?Instructions ?Recorded ?Last Taken ?Type atorvastatin 40 mg tablet 40 mg PO DAILY 11/01/23 Unknown History chlorthalidone 25 mg tablet 25 mg PO DAILY 11/01/23 Unknown History coenzyme Q10 100 mg capsule (Co 100 mg PO DAILY 11/01/23 Unknown History Q-10) folic acid 0.8 mg capsule 800 mcg PO DAILY 11/01/23 Unknown History metoprolol succinate 100 mg 100 mg PO DAILY 11/01/23 Unknown History tablet,extended release 24 hr metoprolol succinate 200 mg 200 mg PO DAILY 11/01/23 Unknown History tablet,extended release 24 hr omeprazole 10 mg capsule,delayed 10 mg PO DAILY 11/01/23 Unknown History release collagenase clostridium histo. 250 1 applic topical DAILY Necrotic 12/01/23 Unknown Rx unit/gram topical ointment (Santyl) wound #90 grams Allergy/AdvReac Type Severity Reaction Status Date / Time amlodipine Allergy Rash Verified 11/01/23 16:02 hydrochlorothiazide Allergy Other Verified 11/01/23 16:02 olmesartan Allergy Other Verified 11/01/23 16:02 simvastatin Allergy Other Verified 11/01/23 16:02 Sulfa (Sulfonamide Allergy Other Verified 11/01/23 16:02 Antibiotics) Surgical History History of tonsillectomy Social History Smoking Status: Current every day smoker Vital Signs Vital Signs Vital Signs: Weight Weight: 142 lb Body Mass Index (BMI) 24.3 Physical Exam Const alert, oriented x3, no apparent distress, average body habitus, no limitations and well nourished General Appearance: cooperative, comfortable, well kempt and well developed Orientation / Consciousness: awake, oriented to person, oriented to place and oriented to time Exam Limitations: no limitations HEENT normocephalic and head/scalp atraumatic Head and Scalp: normal to inspection, normocephalic and atraumatic Face and Sinus: normal facial exam Nose: external nose normal External Ear: external ears normal Eyes EOMs intact bilaterally General Eye: normal appearance of both eyes Neck full ROM Resp normal respiratory effort, normal air movement, no retractions, no use of accessory muscles and clear to auscultation bilaterally Effort and Inspection: able to speak in complete sentences Extremity no calf tenderness General Extremity: Negative for clubbing or cyanosis Skin Wound Narrative: A clustered ulceration is noted on the left pretibial surface and lateral calf. It extends down into the subcutaneous tissue. There is a moderate amount of bioburden and nonviable tissue, which is yellow in appearance. There appears to be improvement, with increasing areas of pink, healthy granulation tissue. The amount of bioburden and nonviable tissue appears to be diminishing. Dimensions of the ulceration are documented elsewhere. There are clear areas of epithelialization, signifying improvement in the status of the ulceration. The erythema of the surrounding skin continues to diminish. No significant swelling is noted in the patient's left lower extremity. The dry eschar on the dorsal aspect of the patient's right second toe has spontaneously sloughed and the wound is now totally healed and epithelialized. Neuro oriented x3, CN's II-XII intact bilaterally, moves all extremities, no focal motor deficits and no sensory deficits noted Sensorium / Orientation: awake, alert, oriented to person, oriented to place and oriented to time Psych Appearance: grossly normal and appropriate Attitude: calm Activity / Motor Behavior: appropriate eye contact Speech: normal speech Mood & Affect: euthymic mood Thought Process: normal thought process Thought Content: normal thought content Attention / Concentration: attention grossly intact Debridement Note Debridement Note Wound debrided: Clustered ulceration on left pretibial area and lateral calf Laterality: Left Type of Debridement: Excisional debridement Anesthesia Used: 5% Lidocaine Gel and Cetacaine Depth: Down to and including healthy tissue and in the subcutaneous layer Percentage of wound debrided: 100 Instrument Used: 5mm curette Tissue Removed: Bioburden and nonviable tissue Severity: Fat Layer Exposed Amount of bleeding with debridement: Mild Bleeding Controlled with: Compression and gauze Patient tolerated procedure: Patient tolerated procedure well Debridement Free Text: The bioburden at the surface of the patient's ulceration appeared less adherent, which prompted an excisional debridement today. The bioburden was rather easily removed, a seeming improvement over prior visits. Post-Debridement Measurements and Additional Note: Post-Debridement Measurements/Treatment - Nurse 1 - General Ulcer Assessment Start: 12/27/23 14:05 Freq: Status: Active Protocol: RANJEET Activity Type Activity Date Activity User E-sign Co-sign Detail Recorded Client Recorded Date Recorded By Document 12/27/23 14:06 RB [id number] 12/27/23 14:15 RB Document 01/03/24 14:19 KW [id number] 01/03/24 14:28 KW 12/27/23 01/03/24 14:06 14:19 - Today's Visit Information Type of service Follow-up Visit Follow-up Visit (Physician/DRAPERY SEWER HAND (Physician/DRAPERY SEWER HAND ) ) Arrival Mode Ambulatory Ambulatory,Cane Accompanied by friend Patient Identification Verified (Name & Yes ) Height and Weight Body Mass Index (BMI) 24.3 24.3 BMI Classification Normal Normal Vital Signs Temperature (97.8 F-99.1 F) 96.1 F L Temperature Source Temporal Temporal Pulse Rate (60-100) 51 L Pulse Location Monitor Monitor Respiratory Rate (12-18) 18 16 Respiratory rate source Observation Observation Oxygen Delivery Method Room Air Blood Pressure (90/60-120/80) 125/70 H Blood Pressure Mean 88 Source Monitor Monitor Position Semi-Fowlers Sitting Blood Pressure Location Left Arm Right Arm History Since Last Visit- (Skip if this is Patient's initial visit) Have you changed medications since your No No last visit? Any new allergies or adverse reactions No No Had a fall/change in ADL's that may No No increase risk of falls Signs or symptoms of abuse and/or No No neglect since last visit Have you been in the hospital since your No No last visit? Has dressing in place as prescribed Yes Yes Has compression in place as prescribed Yes Yes Has offloadiing in place as prescribed No N/A Experienced any changes in pain level or No No management Left Footwear Regular Shoe Right Footwear Regular Shoe Pain Scale: 0-10 Numeric Is Patient Pain Free? Yes Yes WC - Nurse 1 - General Ulcer Measurement Start: 12/27/23 14:05 Freq: Status: Active Protocol: Activity Type Activity Date Activity User E-sign Co-sign Detail Recorded Client Recorded Date Recorded By Document 12/27/23 14:06 RB [id number] 12/27/23 14:15 RB Document 01/03/24 14:19 KW [id number] 01/03/24 14:28 KW 12/27/23 01/03/24 14:06 14:19 Wound Center Nurse 1 #1 LLE CLUSTER -Combined with other wound No -Current Size (cm) - Length 9.5 11.5 -Current Size (cm) - Width 10.8 15 -Current Size (cm) - Depth 0.1 0.1 -Total Square Cm 102.60 172.5 -Date of Last Picture (Recall this 01/03/24 field) -Photo Taken Yes -Tunneling No -Undermining/Tunneling No -Circular Undermining No -Exudate Amt Large Large -Exudate Type Serosanguineous Serosanguineous -Wound Margin Distinct, Distinct, Outline Outline Attached Attached -Granulation Amt Medium (34-66%) Large (67-100%) -Granulation Quality Rodessa Red -Slough/Fibrin Yes -Necrosis Amt Medium (34-66%) Medium (34-66%) -Necrotic Tissue Type Adherent Slough Adherent Slough -Structure Exposed N/A -Texture (Supriya-wound Skin Appearance) Assessed Assessed -Moisture (Supriya-wound Skin Appearance) Assessed Assessed -Color (Supriya-wound Skin Appearance) Assessed Assessed, Erythema -Temperature (Supriya-wound Skin No Abnormality No Abnormality Appearance) (Pt Warm) (Pt Warm) -Tenderness on Palpation (Supriya-wound No No Skin Appearance) -Ulcer Cleansing Wound Cleanser Soap and Water -Foul Odor after Cleansing No No -Anesthetic Used 5% Lidocaine 4% Lidocaine Gel Solution Lower Limb Edema Present Yes Left Calf (cm) 35 Left Ankle (cm) 24.2 WC - Nurse 2 - General Ulcer CM Notes Start: 12/27/23 14:05 Freq: Status: Active Protocol: Activity Type Activity Date Activity User E-sign Co-sign Detail Recorded Client Recorded Date Recorded By Document 12/27/23 14:23 DS [id number] 12/27/23 14:27 DS Edit Result 12/27/23 14:23 DS (1) [id number] 12/27/23 14:30 DS Edit Result 12/27/23 14:23 DS (2) [id number] 12/27/23 14:31 DS Document 01/03/24 14:43 DS [id number] 01/03/24 14:55 DS (1) #1 LLE CLUSTER - Post Debridement (cm) - Length => 9.5 - Post Debridement (cm) - Width => 10.0 - Post Debridement (cm) - Depth => 0.1 - Total Square (Post) (cm) => 95.00 - Area of Debridement (cm) - Length => 9.5 - Area of Debridement (cm) - Width => 10.0 - Total Square (Area) (cm) => 95.00 (2) #1 LLE CLUSTER - Correct Patient Yes => No - Correct Side, Site, Position Yes => No - Correct Procedure Yes => No - Procedure Performed Yes => No - Type of Procedure Debridement => - Debridement - Subq, 1st 20sq cm Yes => No 12/27/23 01/03/24 14:23 14:43 Wound Center Nurse 2 #1 LLE CLUSTER -Time 14:23 14:43 -Correct Patient No Yes -Correct Side, Site, Position No Yes -Correct Procedure No Yes -Procedure Performed No Yes -Type of Procedure Debridement -Clinical Debridement Subcutaneous Subcutaneous -Tissue Removed Subcutaneous Subcutaneous -Post Debridement (cm) - Length 9.5 8.0 -Post Debridement (cm) - Width 10.0 11.0 -Post Debridement (cm) - Depth 0.1 0.1 -Total Square (Post) (cm) 95.00 88.00 -Area of Debridement (cm) - Length 9.5 8.0 -Area of Debridement (cm) - Width 10.0 11.0 -Total Square (Area) (cm) 95.00 88.00 -Tunneling No No -Undermining/Tunneling No No -Circular Undermining No No -Wound/Ulcer Outcome Not Healed Not Healed -Ulcer Cleansing Rinsed/ Rinsed/ Irrigated with Irrigated with Saline Saline -Bioengineered Tissue No -Bleeding Controlled with Pressure Pressure -Treatment Response Procedure Procedure Tolerated Well Tolerated Well -Debridement - Subq, 1st 20sq cm No Yes -Debridement, SubQ, ea addt'l 20sq cm 4 or part thereof Pain Scale: 0-10 Numeric Is Patient Pain Free? No No left lower leg -Description Throbbing, Sharp,Throbbing Aching -Intensity 6 6 -Duration (hours) Chronic Chronic -Pain Behavior Irritability Moaning -Pain Aggravating Factors Debridement -Alleviating Factors/Interventions Medication Medication -Comments cetacaine spray cetecaine used - Nurse 3 - General Ulcer D/C NN Start: 12/27/23 14:05 Freq: Status: Active Protocol: Activity Type Activity Date Activity User E-sign Co-sign Detail Recorded Client Recorded Date Recorded By Document 12/27/23 14:41 [id number] 12/27/23 14:42 Document 01/03/24 15:10 [id number] 01/03/24 15:11 12/27/23 01/03/24 14:41 15:10 Wound Care Center Nurse 3 #1 LLE CLUSTER -Ulcer Cleansing Rinsed/ Rinsed/ Irrigated with Irrigated with Saline Saline -Foul Odor after Cleansing No -Primary Dressing Applied NonAdherent Aquacel AG 4x4 Contact Layer -Other Dressing santyl -Primary Dressing Covered/Secured with Dry Gauze & Dry Gauze & Roll Gauze, Roll Gauze, Secured with Secured with Tape Tape -Aquacel AG 4x4 1 Left -Tubular Bandage Double Layer Double Layer -Size of Tubigrip Used Size D Size D -Size D ($) 2 2 Pain Scale: 0-10 Numeric Is Patient Pain Free? Yes Yes WC - Visit Discharge Discharge Condition Stable Stable Ambulatory Status Ambulatory Ambulatory Transportation Private Auto Private Auto Accompanied by friend Medication Reconcilliation completed & No provided to patient/care provider Clinical Summary of Care Provided Yes Lab / Micro Data Labs: Laboratory Tests 12/27/23 13:11 WBC 12.5 H Hgb 10.8 L Hct 35.6 L Plt Count 253 Sodium 138 Potassium 4.5 Chloride 108 H BUN 28 H Creatinine 1.15 H Glucose 116 H Hemoglobin A1c 5.3 Calcium 9.5 Total Bilirubin 0.20 AST 16 ALT 11 L Alkaline Phosphatase 108 Total Protein 7.0 Albumin 3.1 L Prealbumin 23 Charges/Coding Procedures Integumentary [id number]: [id number] Edith subq tissue 20 sq cm/< (69017 x 4) Assessment/Plan Assessment/Plan (1) Non-pressure chronic ulcer of left calf with fat layer exposed: CODE(S): L97.222 - Non-pressure chronic ulcer of left calf with fat layer exposed (2) Leg ulcer, left: CODE(S): L97.929 - Non-pressure chronic ulcer of unspecified part of left lower leg with unspecified severity QUALIFIERS: Non-pressure ulcer stage: with fat layer exposed Qualified Code(s): L97.922 - Non-pressure chronic ulcer of unspecified part of left lower leg with fat layer exposed (3) Chronic venous insufficiency: CODE(S): I87.2 - Venous insufficiency (chronic) (peripheral) (4) Contact dermatitis: CODE(S): L25.9 - Unspecified contact dermatitis, unspecified cause QUALIFIERS: Contact dermatitis type: irritant Contact dermatitis trigger: other chemical product Qualified Code(s): L24.5 - Irritant contact dermatitis due to other chemical products (5) Left leg swelling: CODE(S): M79.89 - Other specified soft tissue disorders (6) Gastroesophageal reflux disease: CODE(S): K21.9 - Gastro-esophageal reflux disease without esophagitis (7) Hyperlipidemia: CODE(S): E78.5 - Hyperlipidemia, unspecified (8) Tobacco abuse: CODE(S): Z72.0 - Tobacco use (9) Tobacco abuse counseling: CODE(S): Z71.6 - Tobacco abuse counseling (10) Hypertension: CODE(S): I10 - Essential (primary) hypertension (11) Psoriasis of scalp: CODE(S): L40.9 - Psoriasis, unspecified (12) Osteoarthritis of knees, bilateral: CODE(S): M17.0 - Bilateral primary osteoarthritis of knee (13) Prediabetes: CODE(S): R73.03 - Prediabetes (14) History of tonsillectomy: CODE(S): Z90.89 - Acquired absence of other organs PLAN: Plan This is an 78-year-old female who presented with an ulceration of the left pretibial surface and lateral calf of approximately 1 year duration. It had failed to heal appropriately. She had been previously treated for suspected cellulitis with a course of oral doxycycline. The ulceration demonstrated a large amount of bioburden and nonviable tissue, which was somewhat resistant to removal by debridement. The patient has been advised to discontinue her smoking habit. Optimization of glycemic control and nutrition has been recommended. Erythema involving the left gaiter area has diminished significantly, and is now nearly totally resolved. This had been thought to be a contact dermatitis, though consideration of cellulitis prompted a swab culture, the results of which indicated the presence of Proteus mirabilis, Staphylococcus aureus, Enterococcus faecalis, and Pseudomonas aeruginosa. In accordance with the sensitivity results, the patient was placed on Levaquin 500 milligrams p.o. daily for a total of 10 days, which were positive. The patient appears to have responded to the antibiotic regimen, with significant reduction in the erythema. The patient has been advised to elevate her left lower extremity as much as possible, even during daytime hours. Elevation is to be to heart level, or higher. A Tubigrip of 20 to 30 mmHg has been provided to the patient for daily use. The patient's ulceration has a very atypical appearance, and has demonstrated an atypical response to standard wound therapy. It has not responded to the typical measures, which have included serial debridements. In fact, it appears as though there was expansion of the ulceration with initial standard therapy, such as serial debridements. This has elicited a suspicion that the wound may be atypical in nature, and may represent an etiology such as pyoderma gangrenosum. As result, we have foregone recent debridements, in an effort to determine whether improvement is noted in its absence. Biopsies were performed at recent visit, the results of which have demonstrated reactive epithelial changes, acute and chronic inflammation, and no evidence of malignancy. The results have not been indicative of suspected alternative etiologies, such as pyoderma gangrenosum. A discussion has been undertaken with the Director of Pathology, Dr. Hull, to determine what measures might be helpful in determining the presence of such alternative diagnoses. Because the patient's ulceration appeared to be enlarging, the suggestion was put forward to perform a punch biopsy several millimeters beyond the ulcer margin, which could give clues as to the etiologic cause of the patient's ulceration. This option has been discussed with the patient, and has met with her displeasure. A lengthy discussion has been undertaken with the patient as to the difficulties in diagnosing such causes as pyoderma gangrenosum, as it is largely a diagnosis of exclusion. As per the patient's preference, we have deferred biopsies again today. We are to discontinue the use of collagenase Santyl, as the patient has found the expense to be prohibitive. We are to implement the use of Aquacel Ag, which will be applied topically on a daily basis. The patient has been instructed in the appropriate means of application. She has been instructed to obtain pure hypochlorous acid (Vashe), to be used to moisten gauze, and apply topically for approximately 10 minutes before each application of the Aquacel Ag. We have obtained a battery of diagnostic laboratory tests, the results of which are included herein. Results have been discussed with the patient. The patient is scheduled to undergo a venous duplex examination and a noninvasive lower extremity arterial study in the near future. She is to return in 1 week for reevaluation. Mild improvement has been noted with regard to the left lower extremity ulceration. Total time: 28 minutes
[2024-01-10 14:31] VITALS: BP 147/53; PULSE 47; RESP 18; TEMP 35.7; BMI 24.3
--- NOTE | 2024-01-10 17:39 | PCM.WC.HP ---
History of Present Illness Date of Service: 01/10/24 Chief Complaint: Left pretibial ulceration with severe contact dermatitis History of Wound: This is an 78 year-old female who presented with an ulceration of the left pretibial surface which had been present for approximately 1 year. The ulceration had failed to heal. The patient was evaluated at [facility] on October 20, 2023, at which time supriya-ulcer erythema, thought to be cellulitis, prompted treatment with a course of oral antibiotics. The patient has completed a course of oral doxycycline. Most recently, at the advice of her primary care physician, the patient had been using Vaseline liberally on the ulceration and surrounding skin, and covering with Telfa. The patient is a smoker, and has been instructed as to the hazards of smoking, and advised to discontinue the habit. She currently smokes one-half a pack of cigarettes per day, and has done so for many years. The patient is of relatively normal body habitus, with a BMI of 24.3. She is active, and sleeps on a flat mattress at night. She does relate a history of mild left lower extremity swelling. She denies a history of thrombophlebitis. [facility] Medical History Non-pressure chronic ulcer of left calf with fat layer exposed Chronic venous insufficiency Left leg swelling Contact dermatitis Leg ulcer, left Prediabetes Osteoarthritis of knees, bilateral Psoriasis of scalp Hypertension Tobacco abuse counseling Tobacco abuse Hyperlipidemia Gastroesophageal reflux disease Home Medications ?Medication ?Instructions ?Recorded ?Last Taken ?Type atorvastatin 40 mg tablet 40 mg PO DAILY 11/01/23 Unknown History chlorthalidone 25 mg tablet 25 mg PO DAILY 11/01/23 Unknown History coenzyme Q10 100 mg capsule (Co 100 mg PO DAILY 11/01/23 Unknown History Q-10) folic acid 0.8 mg capsule 800 mcg PO DAILY 11/01/23 Unknown History metoprolol succinate 100 mg 100 mg PO DAILY 11/01/23 Unknown History tablet,extended release 24 hr metoprolol succinate 200 mg 200 mg PO DAILY 11/01/23 Unknown History tablet,extended release 24 hr omeprazole 10 mg capsule,delayed 10 mg PO DAILY 11/01/23 Unknown History release collagenase clostridium histo. 250 1 applic topical DAILY Necrotic 12/01/23 Unknown Rx unit/gram topical ointment (Santyl) wound #90 grams Allergy/AdvReac Type Severity Reaction Status Date / Time amlodipine Allergy Rash Verified 11/01/23 16:02 hydrochlorothiazide Allergy Other Verified 11/01/23 16:02 olmesartan Allergy Other Verified 11/01/23 16:02 simvastatin Allergy Other Verified 11/01/23 16:02 Sulfa (Sulfonamide Allergy Other Verified 11/01/23 16:02 Antibiotics) Surgical History History of tonsillectomy Social History Smoking Status: Current every day smoker Vital Signs Vital Signs Vital Signs: 01/10/24 14:31 Temperature 96.2 F L Temperature Source Temporal Pulse Rate 47 L Respiratory Rate 18 Blood Pressure 147/53 H Blood Pressure Mean 84 Blood Pressure Source Monitor Blood Pressure Position Semi-Fowlers Blood Pressure Location Left Arm Weight Weight: 142 lb Body Mass Index (BMI) 24.3 Physical Exam Const alert, oriented x3, no apparent distress, average body habitus, no limitations and well nourished General Appearance: cooperative, comfortable, well kempt and well developed Orientation / Consciousness: awake, oriented to person, oriented to place and oriented to time Exam Limitations: no limitations HEENT normocephalic and head/scalp atraumatic Head and Scalp: normal to inspection, normocephalic and atraumatic Face and Sinus: normal facial exam Nose: external nose normal External Ear: external ears normal Eyes EOMs intact bilaterally General Eye: normal appearance of both eyes Neck full ROM Resp normal respiratory effort, normal air movement, no retractions, no use of accessory muscles and clear to auscultation bilaterally Effort and Inspection: able to speak in complete sentences Extremity no calf tenderness General Extremity: Negative for clubbing or cyanosis Skin Wound Narrative: A clustered ulceration is noted on the left pretibial surface and lateral calf. It extends down into the subcutaneous tissue. There is a moderate amount of bioburden and nonviable tissue, which is yellow in appearance. There appears to be improvement, with increasing areas of pink, healthy granulation tissue. The amount of bioburden and nonviable tissue appears to be diminishing. Dimensions of the ulceration are documented elsewhere. The ulceration appears to be decreasing in size. There are clear areas of epithelialization, signifying improvement in the status of the ulceration. The erythema of the surrounding skin appears to be increased since the patient's last visit. Therefore, a swab culture has been obtained for aerobic and anaerobic bacterial growth. No significant swelling is noted in the patient's left lower extremity. Neuro oriented x3, CN's II-XII intact bilaterally, moves all extremities, no focal motor deficits and no sensory deficits noted Sensorium / Orientation: awake, alert, oriented to person, oriented to place and oriented to time Psych Appearance: grossly normal and appropriate Attitude: calm Activity / Motor Behavior: appropriate eye contact Speech: normal speech Mood & Affect: euthymic mood Thought Process: normal thought process Thought Content: normal thought content Attention / Concentration: attention grossly intact Debridement Note Debridement Note Wound debrided: Clustered ulceration on left pretibial area and lateral calf Laterality: Left Type of Debridement: Excisional debridement Anesthesia Used: 5% Lidocaine Gel and Cetacaine Depth: Down to and including healthy tissue and in the subcutaneous layer Percentage of wound debrided: 100 Instrument Used: 5mm curette Tissue Removed: Bioburden and nonviable tissue Severity: Fat Layer Exposed Amount of bleeding with debridement: Mild Bleeding Controlled with: Compression and gauze Patient tolerated procedure: Patient tolerated procedure well Debridement Free Text: Because of an increase in erythema about the patient's clustered ulceration, a swab culture has been obtained for aerobic and anaerobic bacterial growth. Post-Debridement Measurements and Additional Note: Post-Debridement Measurements/Treatment - Nurse 1 - General Ulcer Assessment Start: 12/27/23 14:05 Freq: Status: Active Protocol: .[place] Activity Type Activity Date Activity User E-sign Co-sign Detail Recorded Client Recorded Date Recorded By Document 12/27/23 14:06 RB [id number] 12/27/23 14:15 RB Document 01/03/24 14:19 KW [id number] 01/03/24 14:28 KW Document 01/10/24 14:31 RB [id number] 01/10/24 14:39 RB 12/27/23 01/03/24 01/10/24 14:06 14:19 14:31 - Today's Visit Information Type of service Follow-up Visit Follow-up Visit Follow-up Visit (Physician/SWEET GOODS MACHINE OPERATOR (Physician/SWEET GOODS MACHINE OPERATOR (Physician/SWEET GOODS MACHINE OPERATOR ) ) ) Arrival Mode Ambulatory Ambulatory,Cane Ambulatory,Cane Transfer Assistance None Accompanied by friend Patient Identification Verified (Name & Yes Yes ) Patient Requires Transmission-Based No Precautions Height and Weight Body Mass Index (BMI) 24.3 24.3 24.3 BMI Classification Normal Normal Normal Vital Signs Temperature (97.8 F-99.1 F) 96.1 F L 96.2 F L Temperature Source Temporal Temporal Temporal Pulse Rate (60-100) 51 L 47 L Pulse Location Monitor Monitor Monitor Respiratory Rate (12-18) 18 16 18 Respiratory rate source Observation Observation Observation Oxygen Delivery Method Room Air Blood Pressure (90/60-120/80) 125/70 H 147/53 H Blood Pressure Mean 88 84 Source Monitor Monitor Monitor Position Semi-Fowlers Sitting Semi-Fowlers Blood Pressure Location Left Arm Right Arm Left Arm History Since Last Visit- (Skip if this is Patient's initial visit) Have you changed medications since your No No No last visit? Any new allergies or adverse reactions No No No Had a fall/change in ADL's that may No No No increase risk of falls Signs or symptoms of abuse and/or No No No neglect since last visit Have you been in the hospital since your No No No last visit? Has dressing in place as prescribed Yes Yes Yes Has compression in place as prescribed Yes Yes Yes Has offloadiing in place as prescribed No N/A No Experienced any changes in pain level or No No No management Left Footwear Regular Shoe Right Footwear Regular Shoe Pain Scale: 0-10 Numeric Is Patient Pain Free? Yes Yes Yes - Nurse 1 - General Ulcer Measurement Start: 12/27/23 14:05 Freq: Status: Active Protocol: Activity Type Activity Date Activity User E-sign Co-sign Detail Recorded Client Recorded Date Recorded By Document 12/27/23 14:06 RB [id number] 12/27/23 14:15 RB Document 01/03/24 14:19 KW [id number] 01/03/24 14:28 KW Document 01/10/24 14:31 RB [id number] 01/10/24 14:39 RB 12/27/23 01/03/24 01/10/24 14:06 14:19 14:31 Wound Center Nurse 1 #1 LLE CLUSTER -Combined with other wound No No -Current Size (cm) - Length 9.5 11.5 9.2 -Current Size (cm) - Width 10.8 15 11.5 -Current Size (cm) - Depth 0.1 0.1 0.1 -Total Square Cm 102.60 172.5 105.80 -Date of Last Picture (Recall this 01/03/24 field) -Photo Taken Yes Yes -Tunneling No No -Undermining/Tunneling No No -Circular Undermining No No -Exudate Amt Large Large Large -Exudate Type Serosanguineous Serosanguineous Serosanguineous -Wound Margin Distinct, Distinct, Distinct, Outline Outline Outline Attached Attached Attached -Granulation Amt Medium (34-66%) Large (67-100%) Medium (34-66%) -Granulation Quality Murdock Red Murdock -Slough/Fibrin Yes Yes -Necrosis Amt Medium (34-66%) Medium (34-66%) Medium (34-66%) -Necrotic Tissue Type Adherent Slough Adherent Slough Adherent Slough -Structure Exposed N/A N/A -Texture (Supriya-wound Skin Appearance) Assessed Assessed Assessed -Moisture (Supriya-wound Skin Appearance) Assessed Assessed Assessed -Color (Supriya-wound Skin Appearance) Assessed Assessed, Assessed Erythema -Temperature (Supriya-wound Skin No Abnormality No Abnormality No Abnormality Appearance) (Pt Warm) (Pt Warm) (Pt Warm) -Tenderness on Palpation (Supriya-wound No No No Skin Appearance) -Ulcer Cleansing Wound Cleanser Soap and Water Wound Cleanser -Foul Odor after Cleansing No No Yes -Anesthetic Used 5% Lidocaine 4% Lidocaine 5% Lidocaine Gel Solution Gel Lower Limb Edema Present Yes Yes Left Calf (cm) 35 35 Left Ankle (cm) 24.2 21 WC - Nurse 2 - General Ulcer CM Notes Start: 12/27/23 14:05 Freq: Status: Active Protocol: Activity Type Activity Date Activity User E-sign Co-sign Detail Recorded Client Recorded Date Recorded By Document 12/27/23 14:23 DS [id number] 12/27/23 14:27 DS Edit Result 12/27/23 14:23 DS (1) [id number] 12/27/23 14:30 DS Edit Result 12/27/23 14:23 DS (2) [id number] 12/27/23 14:31 DS Document 01/03/24 14:43 DS [id number] 01/03/24 14:55 DS Document 01/10/24 15:08 DS [id number] 01/10/24 15:17 DS (1) #1 LLE CLUSTER - Post Debridement (cm) - Length => 9.5 - Post Debridement (cm) - Width => 10.0 - Post Debridement (cm) - Depth => 0.1 - Total Square (Post) (cm) => 95.00 - Area of Debridement (cm) - Length => 9.5 - Area of Debridement (cm) - Width => 10.0 - Total Square (Area) (cm) => 95.00 (2) #1 LLE CLUSTER - Correct Patient Yes => No - Correct Side, Site, Position Yes => No - Correct Procedure Yes => No - Procedure Performed Yes => No - Type of Procedure Debridement => - Debridement - Subq, 1st 20sq cm Yes => No 12/27/23 01/03/24 01/10/24 14:23 14:43 15:08 Wound Center Nurse 2 #1 LLE CLUSTER -Time 14:23 14:43 15:08 -Correct Patient No Yes Yes -Correct Side, Site, Position No Yes Yes -Correct Procedure No Yes Yes -Procedure Performed No Yes Yes -Type of Procedure Debridement Debridement -Clinical Debridement Subcutaneous Subcutaneous Subcutaneous -Tissue Removed Subcutaneous Subcutaneous Subcutaneous -Post Debridement (cm) - Length 9.5 8.0 5.2 -Post Debridement (cm) - Width 10.0 11.0 10.1 -Post Debridement (cm) - Depth 0.1 0.1 0.1 -Total Square (Post) (cm) 95.00 88.00 52.52 -Area of Debridement (cm) - Length 9.5 8.0 5.2 -Area of Debridement (cm) - Width 10.0 11.0 10.1 -Total Square (Area) (cm) 95.00 88.00 52.52 -Tunneling No No No -Undermining/Tunneling No No No -Circular Undermining No No No -Wound/Ulcer Outcome Not Healed Not Healed Not Healed -Ulcer Cleansing Rinsed/ Rinsed/ Rinsed/ Irrigated with Irrigated with Irrigated with Saline Saline Saline -Bioengineered Tissue No No -Bleeding Controlled with Pressure Pressure Pressure -Treatment Response Procedure Procedure Procedure Tolerated Well Tolerated Well Tolerated Well -Debridement - Subq, 1st 20sq cm No Yes Yes -Debridement, SubQ, ea addt'l 20sq cm 4 2 or part thereof Pain Scale: 0-10 Numeric Is Patient Pain Free? No No No left lower leg -Description Throbbing, Sharp,Throbbing Sharp,Aching Aching -Intensity 6 6 6 -Duration (hours) Chronic Chronic Chronic -Pain Behavior Irritability Moaning Moaning -Pain Aggravating Factors Debridement Debridement -Alleviating Factors/Interventions Medication Medication Medication, Emotional Support -Comments cetacaine spray cetecaine cetecaine spray used - Nurse 3 - General Ulcer D/C NN Start: 12/27/23 14:05 Freq: Status: Active Protocol: Activity Type Activity Date Activity User E-sign Co-sign Detail Recorded Client Recorded Date Recorded By Document 12/27/23 14:41 JF [id number] 12/27/23 14:42 JF Document 01/03/24 15:10 KW [id number] 01/03/24 15:11 KW Document 01/10/24 15:40 RB [id number] 01/10/24 15:40 RB 12/27/23 01/03/24 01/10/24 14:41 15:10 15:40 Wound Care Center Nurse 3 #1 LLE CLUSTER -Ulcer Cleansing Rinsed/ Rinsed/ Wound Cleanser Irrigated with Irrigated with Saline Saline -Foul Odor after Cleansing No -Primary Dressing Applied NonAdherent Aquacel AG 4x4 Aquacel Extra Contact Layer -Other Dressing santyl ABD -Primary Dressing Covered/Secured with Dry Gauze & Dry Gauze & Dry Gauze & Roll Gauze, Roll Gauze, Roll Gauze, Secured with Secured with Secured with Tape Tape Tape -Aquacel Extra 5 -Aquacel AG 4x4 1 Left -Tubular Bandage Double Layer Double Layer Double Layer -Size of Tubigrip Used Size D Size D Size D -Size D ($) 2 2 2 Treatment Response Procedure Tolerated Well Pain Scale: 0-10 Numeric Is Patient Pain Free? Yes Yes Yes WC - Visit Discharge Discharge Condition Stable Stable Stable Ambulatory Status Ambulatory Ambulatory Ambulatory,Cane Transportation Private Auto Private Auto Private Auto Accompanied by friend Medication Reconcilliation completed & No No provided to patient/care provider Clinical Summary of Care Provided Yes Yes Charges/Coding Multi Select Codes Integumentary Integumentary CPT Codes: 48690 Edith subq tissue 20 sq cm/< (15192 x 1; 45587 x 2) Assessment/Plan Assessment/Plan (1) Non-pressure chronic ulcer of left calf with fat layer exposed: CODE(S): L97.222 - Non-pressure chronic ulcer of left calf with fat layer exposed (2) Leg ulcer, left: CODE(S): L97.929 - Non-pressure chronic ulcer of unspecified part of left lower leg with unspecified severity QUALIFIERS: Non-pressure ulcer stage: with fat layer exposed Qualified Code(s): L97.922 - Non-pressure chronic ulcer of unspecified part of left lower leg with fat layer exposed (3) Chronic venous insufficiency: CODE(S): I87.2 - Venous insufficiency (chronic) (peripheral) (4) Contact dermatitis: CODE(S): L25.9 - Unspecified contact dermatitis, unspecified cause QUALIFIERS: Contact dermatitis type: irritant Contact dermatitis trigger: other chemical product Qualified Code(s): L24.5 - Irritant contact dermatitis due to other chemical products (5) Left leg swelling: CODE(S): M79.89 - Other specified soft tissue disorders (6) Gastroesophageal reflux disease: CODE(S): K21.9 - Gastro-esophageal reflux disease without esophagitis (7) Hyperlipidemia: CODE(S): E78.5 - Hyperlipidemia, unspecified (8) Tobacco abuse: CODE(S): Z72.0 - Tobacco use (9) Tobacco abuse counseling: CODE(S): Z71.6 - Tobacco abuse counseling (10) Hypertension: CODE(S): I10 - Essential (primary) hypertension (11) Psoriasis of scalp: CODE(S): L40.9 - Psoriasis, unspecified (12) Osteoarthritis of knees, bilateral: CODE(S): M17.0 - Bilateral primary osteoarthritis of knee (13) Prediabetes: CODE(S): R73.03 - Prediabetes (14) History of tonsillectomy: CODE(S): Z90.89 - Acquired absence of other organs PLAN: Plan This is an 78-year-old female who presented with an ulceration of the left pretibial surface and lateral calf of approximately 1 year duration. It had failed to heal appropriately. She had been previously treated for suspected cellulitis with a course of oral doxycycline. The ulceration demonstrated a large amount of bioburden and nonviable tissue, which was somewhat resistant to removal by debridement. The patient has been advised to discontinue her smoking habit. Optimization of glycemic control and nutrition has been recommended. Erythema involving the left gaiter area had diminished significantly, though appears to have been exacerbated since the patient's last visit. As result, a swab culture has been obtained today for aerobic and anaerobic bacterial growth. The culture results will be awaited, and antibiotics prescribed if necessary, according to the results. The patient has been advised to elevate her left lower extremity as much as possible, even during daytime hours. Elevation is to be to heart level, or higher. A Tubigrip of 20 to 30 mmHg has been provided to the patient for daily use. The patient's ulceration has a very atypical appearance, and has demonstrated an atypical response to standard wound therapy. It has not responded well to the typical measures, which have included serial debridements. In fact, it appears as though there was expansion of the ulceration with initial standard therapy, such as serial debridements. This has elicited a suspicion that the wound may be atypical in nature, and may represent an etiology such as pyoderma gangrenosum. Biopsies were performed at recent visit, the results of which have demonstrated reactive epithelial changes, acute and chronic inflammation, and no evidence of malignancy. The results have not been indicative of suspected alternative etiologies, such as pyoderma gangrenosum. A discussion has been undertaken with the Director of Pathology, Dr. Hull, to determine what measures might be helpful in determining the presence of such alternative diagnoses. Because the patient's ulceration appeared to be enlarging, the suggestion was put forward to perform a punch biopsy several millimeters beyond the ulcer margin, which could give clues as to the etiologic cause of the patient's ulceration. This option has been discussed with the patient, and has met with her displeasure. A lengthy discussion has been undertaken with the patient as to the difficulties in diagnosing such causes as pyoderma gangrenosum, as it is largely a diagnosis of exclusion. As per the patient's preference, we have deferred biopsies again today. We are to discontinue the use of collagenase Santyl, as the patient has found the expense to be prohibitive. We are to implement the use of Aquacel extra, without silver. There is suspicion that the patient may be reacting to the silver within the dressings. In addition, we are to discontinue the use of Vashe temporarily, until the source of the supriya-ulcer erythema is better understood. We have obtained a battery of diagnostic laboratory tests, the results of which have been reviewed and discussed with the patient. The patient is scheduled to undergo a venous duplex examination and a noninvasive lower extremity arterial study in the near future. She is to return in 2 week for reevaluation. Mild improvement has been noted with regard to the left lower extremity ulceration, though the development of increasing supriya-ulcer erythema warrants further evaluation. Culture results will be awaited. Total time: 28 minutes
--- NOTE | 2024-01-11 08:27 | WC ---
PHOTO 01/10/24 [id number]
== END 2024-01-23 23:59 | disposition home or self-care (01) ==
LOC: WC 14:15
PROVIDERS: PCP Family Medicine; Referring Provider Family Medicine; Visit Provider Surgery
DX: L97.222 Non-pressure chronic ulcer of left calf with fat layer exposed (principal); L98.492 Non-pressure chronic ulcer of skin of other sites with fat layer exposed; K21.9 Gastro-esophageal reflux disease without esophagitis; E78.5 Hyperlipidemia, unspecified; Z71.6 Tobacco abuse counseling; R73.03 Prediabetes; I10 Essential (primary) hypertension; L40.9 Psoriasis, unspecified; Z72.0 Tobacco use; M17.0 Bilateral primary osteoarthritis of knee; I87.2 Venous insufficiency (chronic) (peripheral); L24.5 Irritant contact dermatitis due to other chemical products; M79.89 Other specified soft tissue disorders; Z90.89 Acquired absence of other organs
CPT/HCPCS: 11042; 11045; 87070; 87075; 87077; 87205; 99213; G0463

== ENCOUNTER 2024-01-24 14:16 | Outpatient (RCR) | payer MEDICARE, OTHER, SELFPAY ==
[2024-01-24 00:34] VITALS: BP 138/54; PULSE 52; RESP 18; TEMP 36.5; BMI 24.3
[2024-01-24 14:20] VITALS: BP 139/58; PULSE 52; RESP 18; TEMP 36.3; BMI 24.3
--- NOTE | 2024-01-25 11:27 | HP.PCM_ITS ---
History of Present Illness Date of Service: 01/24/24 Chief Complaint: Left pretibial ulceration with severe supriya-ulcer dermatitis History of Wound: This is an 78 year-old female who presented with an ulceration of the left pretibial surface which had been present for approximately 1 year. The ulceration had failed to heal. The patient was evaluated at [facility] on October 20, 2023, at which time supriya-ulcer erythema, thought to be cellulitis, prompted treatment with a course of oral antibiotics. The patient completed a course of oral doxycycline. More recently, at the advice of her primary care physician, the patient had been using Vaseline liberally on the ulceration and surrounding skin, and covering with Telfa. The patient is a smoker, and has been instructed as to the hazards of smoking, and advised to discontinue the habit. She currently smokes one-half a pack of cigarettes per day, and has done so for many years. The patient is of relatively normal body habitus, with a BMI of 24.3. She is active, and sleeps on a flat mattress at night. She does relate a history of mild left lower extremity swelling. She denies a history of thrombophlebitis. [facility] Medical History Non-pressure chronic ulcer of left calf with fat layer exposed Chronic venous insufficiency Left leg swelling Contact dermatitis Leg ulcer, left Prediabetes Osteoarthritis of knees, bilateral Psoriasis of scalp Hypertension Tobacco abuse counseling Tobacco abuse Hyperlipidemia Gastroesophageal reflux disease Home Medications ?Medication ?Instructions ?Recorded ?Last Taken ?Type atorvastatin 40 mg tablet 40 mg PO DAILY 11/01/23 Unknown History chlorthalidone 25 mg tablet 25 mg PO DAILY 11/01/23 Unknown History coenzyme Q10 100 mg capsule (Co 100 mg PO DAILY 11/01/23 Unknown History Q-10) folic acid 0.8 mg capsule 800 mcg PO DAILY 11/01/23 Unknown History metoprolol succinate 100 mg 100 mg PO DAILY 11/01/23 Unknown History tablet,extended release 24 hr metoprolol succinate 200 mg 200 mg PO DAILY 11/01/23 Unknown History tablet,extended release 24 hr omeprazole 10 mg capsule,delayed 10 mg PO DAILY 11/01/23 Unknown History release collagenase clostridium histo. 250 1 applic topical DAILY Necrotic 12/01/23 Unknown Rx unit/gram topical ointment (Santyl) wound #90 grams Allergy/AdvReac Type Severity Reaction Status Date / Time amlodipine Allergy Rash Verified 11/01/23 16:02 hydrochlorothiazide Allergy Other Verified 11/01/23 16:02 olmesartan Allergy Other Verified 11/01/23 16:02 simvastatin Allergy Other Verified 11/01/23 16:02 Sulfa (Sulfonamide Allergy Other Verified 11/01/23 16:02 Antibiotics) Surgical History History of tonsillectomy Social History Smoking Status: Current every day smoker Vital Signs Vital Signs Vital Signs: 01/24/24 14:20 Temperature 97.3 F L Temperature Source Temporal Pulse Rate 52 L Respiratory Rate 18 Blood Pressure 139/58 H Blood Pressure Mean 85 Blood Pressure Source Monitor Blood Pressure Position Semi-Fowlers Blood Pressure Location Left Arm Oxygen Delivery Method Room Air Weight Weight: 142 lb Body Mass Index (BMI) 24.3 Physical Exam Const alert, oriented x3, no apparent distress, average body habitus, no limitations and well nourished General Appearance: cooperative, comfortable, well kempt and well developed Orientation / Consciousness: awake, oriented to person, oriented to place and oriented to time Exam Limitations: no limitations HEENT normocephalic and head/scalp atraumatic Head and Scalp: normal to inspection, normocephalic and atraumatic Face and Sinus: normal facial exam Nose: external nose normal External Ear: external ears normal Eyes EOMs intact bilaterally General Eye: normal appearance of both eyes Neck full ROM Resp normal respiratory effort, normal air movement, no retractions, no use of accessory muscles and clear to auscultation bilaterally Effort and Inspection: able to speak in complete sentences Extremity no calf tenderness General Extremity: Negative for clubbing or cyanosis Skin Wound Narrative: A clustered ulceration is noted on the left pretibial surface, lateral and posterior calf. It extends down into the subcutaneous tissue. There is a moderate amount of bioburden and nonviable tissue, which is yellow in appearance. There appears to be enlargement of the ulceration since the patient's prior visit. The amount of bioburden and nonviable tissue appears to be increasing. Dimensions of the ulceration are documented elsewhere. There is a very intense erythema in the supriya-ulcer area, which may be consistent with cellulitis, but is more consistent with an inflammatory process. This supriya- ulcer erythema has been a consistent finding, but appears somewhat worse today. As a result, a swab culture has been obtained for aerobic and anaerobic bacterial growth. No significant swelling is noted in the patient's left lower extremity. Neuro oriented x3, CN's II-XII intact bilaterally, moves all extremities, no focal motor deficits and no sensory deficits noted Sensorium / Orientation: awake, alert, oriented to person, oriented to place and oriented to time Psych Appearance: grossly normal and appropriate Attitude: calm Activity / Motor Behavior: appropriate eye contact Speech: normal speech Mood & Affect: euthymic mood Thought Process: normal thought process Thought Content: normal thought content Attention / Concentration: attention grossly intact Debridement Note Debridement Note No debridement was completed: No debridement was completed today Post-Debridement Measurements and Additional Note: Post-Debridement Measurements/Treatment WC - Nurse 1 - General Ulcer Assessment Start: 01/24/24 14:20 Freq: Status: Active Protocol: RANJEET Activity Type Activity Date Activity User E-sign Co-sign Detail Recorded Client Recorded Date Recorded By Document 01/24/24 14:20 [id number] 01/24/24 14:26 KW 01/24/24 14:20 - Today's Visit Information Type of service Follow-up Visit (Physician/RELATIONSHIP EXECUTIVE ) Arrival Mode Ambulatory,Cane Patient Identification Verified (Name & Yes ) Height and Weight Body Mass Index (BMI) 24.3 BMI Classification Normal Vital Signs Temperature (97.8 F-99.1 F) 97.3 F L Temperature Source Temporal Pulse Rate (60-100) 52 L Pulse Location Monitor Respiratory Rate (12-18) 18 Respiratory rate source Observation Oxygen Delivery Method Room Air Blood Pressure (90/60-120/80) 139/58 H Blood Pressure Mean 85 Source Monitor Position Semi-Fowlers Blood Pressure Location Left Arm History Since Last Visit- (Skip if this is Patient's initial visit) Have you changed medications since your No last visit? Any new allergies or adverse reactions No Had a fall/change in ADL's that may No increase risk of falls Signs or symptoms of abuse and/or No neglect since last visit Have you been in the hospital since your No last visit? Has dressing in place as prescribed Yes Has compression in place as prescribed N/A Has offloadiing in place as prescribed N/A Experienced any changes in pain level or No management Left Footwear Regular Shoe Right Footwear Regular Shoe Pain Scale: 0-10 Numeric Is Patient Pain Free? Yes - Nurse 1 - General Ulcer Measurement Start: 01/24/24 14:20 Freq: Status: Active Protocol: Activity Type Activity Date Activity User E-sign Co-sign Detail Recorded Client Recorded Date Recorded By Document 01/24/24 14:20 KW [id number] 01/24/24 14:26 KW Document 01/24/24 15:10 DS [id number] 01/24/24 15:10 DS 01/24/24 01/24/24 14:20 15:10 Wound Center Nurse 1 #1 LLE CLUSTER -Current Size (cm) - Length 23 -Current Size (cm) - Width 9.5 -Current Size (cm) - Depth 0.2 -Total Square Cm 218.5 -Date of Last Picture (Recall this 01/24/24 01/24/24 field) -Photo Taken Yes -Exudate Amt Large -Exudate Type Serosanguineous -Wound Margin Distinct, Outline Attached -Granulation Amt Large (67-100%) -Granulation Quality Red -Necrosis Amt Small (1-33%) -Necrotic Tissue Type Adherent Slough -Texture (Supriya-wound Skin Appearance) Assessed -Moisture (Supriya-wound Skin Appearance) Assessed -Color (Supriya-wound Skin Appearance) Assessed, Erythema -Temperature (Supriya-wound Skin No Abnormality Appearance) (Pt Warm) -Tenderness on Palpation (Supriya-wound No Skin Appearance) -Ulcer Cleansing Soap and Water -Foul Odor after Cleansing No -Anesthetic Used 5% Lidocaine Gel - Nurse 2 - General Ulcer CM Notes Start: 01/24/24 14:20 Freq: Status: Active Protocol: Activity Type Activity Date Activity User E-sign Co-sign Detail Recorded Client Recorded Date Recorded By Document 01/24/24 14:56 DS [id number] 01/24/24 15:02 DS 01/24/24 14:56 Wound Center Nurse 2 -Time 14:45 -Procedure Performed No -Post Debridement (cm) - Length 9.0 -Post Debridement (cm) - Width 10.3 -Post Debridement (cm) - Depth 0.3 -Total Square (Post) (cm) 92.70 -Area of Debridement (cm) - Length 9.0 -Area of Debridement (cm) - Width 10.3 -Total Square (Area) (cm) 92.70 -Tunneling No -Undermining/Tunneling No -Circular Undermining No -Wound/Ulcer Outcome Not Healed -Bioengineered Tissue No Pain Scale: 0-10 Numeric Is Patient Pain Free? Yes WC - Nurse 3 - General Ulcer D/C NN Start: 01/24/24 14:20 Freq: Status: Active Protocol: Activity Type Activity Date Activity User E-sign Co-sign Detail Recorded Client Recorded Date Recorded By Document 01/24/24 15:18 RB [id number] 01/24/24 15:20 RB 01/24/24 15:18 Wound Care Center Nurse 3 #1 LLE CLUSTER -Other Dressing hydrogel -Primary Dressing Covered/Secured with Dry Gauze,Dry Gauze & Roll Gauze,Secured with Tape Pain Scale: 0-10 Numeric Is Patient Pain Free? No WC - Visit Discharge Discharge Condition Stable Ambulatory Status Ambulatory,Cane Transportation Private Auto Medication Reconcilliation completed & No provided to patient/care provider Clinical Summary of Care Provided Yes Charges/Coding Visit Charges Office Visits / Consults: 69099 OV L3 Est 20min Assessment/Plan Assessment/Plan (1) Non-pressure chronic ulcer of left calf with fat layer exposed: CODE(S): L97.222 - Non-pressure chronic ulcer of left calf with fat layer exposed (2) Chronic venous insufficiency: CODE(S): I87.2 - Venous insufficiency (chronic) (peripheral) (3) Contact dermatitis: CODE(S): L25.9 - Unspecified contact dermatitis, unspecified cause QUALIFIERS: Contact dermatitis type: irritant Contact dermatitis trigger: other chemical product Qualified Code(s): L24.5 - Irritant contact dermatitis due to other chemical products (4) Left leg swelling: CODE(S): M79.89 - Other specified soft tissue disorders (5) Gastroesophageal reflux disease: CODE(S): K21.9 - Gastro-esophageal reflux disease without esophagitis (6) Hyperlipidemia: CODE(S): E78.5 - Hyperlipidemia, unspecified (7) Tobacco abuse: CODE(S): Z72.0 - Tobacco use (8) Tobacco abuse counseling: CODE(S): Z71.6 - Tobacco abuse counseling (9) Hypertension: CODE(S): I10 - Essential (primary) hypertension (10) Psoriasis of scalp: CODE(S): L40.9 - Psoriasis, unspecified (11) Osteoarthritis of knees, bilateral: CODE(S): M17.0 - Bilateral primary osteoarthritis of knee (12) Prediabetes: CODE(S): R73.03 - Prediabetes (13) History of tonsillectomy: CODE(S): Z90.89 - Acquired absence of other organs PLAN: Plan This is an 78-year-old female who presented with an ulceration of the left pretibial surface and lateral calf of approximately 1 year duration. It had failed to heal appropriately. She had been previously treated for suspected cellulitis with a course of oral doxycycline. The ulceration demonstrates a large amount of bioburden and nonviable tissue, which has been somewhat resistant to removal by debridement. The patient has been advised to discontinue her smoking habit. Optimization of glycemic control and nutrition has been recommended. Erythema involving the left supriya-ulcer area has waxed and waned for several months, and is noted to have increased at this visit. A recent culture of the ulceration was positive for very rare Corynebacterium striatum, which was assumed to be a skin contaminant, and was not treated with antibiotic. However, with concerns regarding enhanced supriya-ulcer erythema, a swab culture has been obtained today for aerobic and anaerobic bacterial growth. The culture results will be awaited, and antibiotics prescribed if felt warranted, according to the results. The patient has been advised to elevate her left lower extremity as much as possible, even during daytime hours. Elevation is to be to heart level, or higher. A Tubigrip of 20 to 30 mmHg has been provided to the patient for daily use. The patient's ulceration has a very atypical appearance, and has demonstrated an atypical response to standard wound therapy. It has not responded well to the typical measures, which have included serial debridements and a variety of topical ulcer dressings.. There has been a general resistance to healing in the face of standard ulcer care, which has included debridements. This has elicited a suspicion that the wound may be atypical in nature, and may represent an etiology such as pyoderma gangrenosum. Biopsies were performed at recent visit, the results of which have demonstrated reactive epithelial changes, acute and chronic inflammation, and no evidence of malignancy. The results have not been indicative of suspected alternative etiologies, such as pyoderma gangrenosum. A discussion has been undertaken with the Director of Pathology, Dr. Hull, to determine what measures might be helpful in determining the presence of such alternative diagnoses. Because the patient's ulceration has periodically enlarged, the suggestion was put forward to perform a punch biopsy several millimeters beyond the ulcer margin, which could give clues as to the etiologic cause of the patient's ulceration. This option has been discussed with the patient, and has met with her displeasure. A lengthy discussion has been undertaken with the patient as to the difficulties in diagnosing such causes as pyoderma gangrenosum, as it is largely a diagnosis of exclusion. As per the patient's preference, we have deferred biopsies again today. We are to now transition to the use of Medihoney as a Manuka alginate. This topical preparation will be applied on a daily basis. The patient has been instructed in the appropriate means of application. The patient is to continue using Vashe to moisten gauze and to apply to the ulceration topically for approximately 10 minutes before the application of Manuka alginate dressings. We have obtained a battery of diagnostic laboratory tests, the results of which have been reviewed and discussed with the patient. The patient is scheduled to undergo a venous duplex examination and a noninvasive lower extremity arterial study in the near future. We will await the results of aerobic and anaerobic cultures. As has been discussed with the patient, we are to seek consultation with other providers, as it appears that her management will require a multidisciplinary approach. Her failure to respond to traditional ulcer-care measures has resulted in a suspicion that her ulceration may be due to pyoderma gangrenosum, which is thought to be an autoimmune disorder, and treated medically with such drugs as cyclosporine, immunoglobulins, Remicade, tacrolimus, etc. such management may involve the expertise of a Entry Level Project Coordinator or Fireman Helper for the appropriate administration and oversight of such medications. The patient is appointed with her primary care physician, Dr. Jaciel López, on February 09, 2024. Records will be sent to the patient's primary care physician so as to involve him in the patient's oversight. The patient is to return in several weeks for reevaluation. Total time: 28 minutes
--- NOTE | 2024-01-25 12:01 | WC ---
PHOTO LEFT LOWER LEG 01/24/24
--- NOTE | 2024-01-25 12:05 | WC ---
PHOTO 01/24/24 LEFT LOWER LEG
== END 2024-02-23 23:59 | disposition home or self-care (01) ==
LOC: WC 14:16
PROVIDERS: PCP Family Medicine; Referring Provider Family Medicine; Visit Provider Surgery
DX: L97.222 Non-pressure chronic ulcer of left calf with fat layer exposed (principal); K21.9 Gastro-esophageal reflux disease without esophagitis; R73.03 Prediabetes; I10 Essential (primary) hypertension; M17.0 Bilateral primary osteoarthritis of knee; L40.9 Psoriasis, unspecified; E78.5 Hyperlipidemia, unspecified; Z71.6 Tobacco abuse counseling; I87.2 Venous insufficiency (chronic) (peripheral); Z90.79 Acquired absence of other genital organ(s); M79.89 Other specified soft tissue disorders; L24.5 Irritant contact dermatitis due to other chemical products; F17.200 Nicotine dependence, unspecified, uncomplicated
CPT/HCPCS: 87070; 87075; 87077; 87186; 87205; 99213; 99214; G0463